=== PATIENT | male | born 1965 | race Caucasian/White ===

== ENCOUNTER 2023-01-21 07:44 | Inpatient (IN) | payer SELFPAY ==
[2023-01-21] VITALS (7 sets, daily range): BP systolic 124–138; BP diastolic 80–95; PULSE 93–110; RESP 18; TEMP 36.4–36.9; O2SAT 94–97; BMI 24.4; BMI 22.3; BMI 22.2
--- NOTE | 2023-01-21 08:08 | CRLHL7_ITS ---
For Patients: As a result of the Century Cures Act, medical imaging exams and procedure reports are released immediately into your electronic medical record. You may view this report before your referring provider. If you have questions, please contact your health care provider. Indication: Left femur pain and swelling. Technique: CT of the left femur with intravenous contrast (89 mL Isovue 370). Comparison: None available. Findings: There is stranding deep to the left tensor fascia emil muscle, surrounding the left vastus lateralis superficial fascia. The left vastus lateralis and intermedius muscles appear enlarged and attenuation is mildly heterogeneous compared to the remaining thigh musculature. There is a hypodense elongated collection at the junction of the vastus lateralis and intermedius muscles measuring approximately 8.0 x 1.0 x 1.0 cm. No additional collection is identified. Remaining muscle attenuation and bulk is normal. There is lateral thigh subcutaneous stranding without discrete subcutaneous fluid collection or soft tissue gas. No acute osseous abnormality. Impression: 1. Left thigh edema surrounding the vastus lateralis muscle with muscle enlargement and heterogeneity involving the vastus lateralis and to a lesser extent the vastus intermedius muscles. While findings are nonspecific, differential considerations include infectious fasciitis/myositis, rhabdomyolysis, posttraumatic muscle edema or inflammatory myopathy. Clinical correlation is requested to determine potential etiologies as well as to evaluate for clinical signs and symptoms of compartment syndrome. 2. Elongated fluid collection at the junction of the vastus lateralis and intermedius muscles may represent edema along the deep muscular fascia versus developing abscess. This collection is currently too small for percutaneous drainage. Findings were discussed with Dr. Masters on 01/21/2023 at 09:18 Please note that all CT scans at this facility use dose modulation, iterative reconstruction, and/or weight-based dosing when appropriate to reduce radiation dose to as low as reasonably achievable. Dictated by Shikha Mcintyre MD @ 01/21/2023 9:24:53 AM (Electronically Signed)
[2023-01-21 08:22] LABS: Lactate* 1.5 mmol/L (0.5-1.9)
[2023-01-21 08:24] LABS: Basophils Percent Auto 0.2 % (0.0-3.0); Hematocrit 41.4 % (37.0-53.0); Hemoglobin* 14.6 gm/dL (13.5-17.5); Immature Granulocytes Pct Auto 0.2 %; Lymphocytes Percent Auto 5.1 % (20-44); Mean Corpuscular HGB Conc 35 gm/dL (32-36); Mean Corpuscular Hemoglobin 29 pg (26-34); Mean Corpuscular Volume 83 fL (80-100); Monocytes Percent Auto 7.6 % (0.0-11.0); Neutrophils Percent Auto 86.9 % (42.0-72.0); Platelet Count* 151 K/uL (140-440); RDW Coefficient of Variation % 11.9 % (11.5-15.5); White Blood Count* 14.31 K/uL (4.50-11.00)
--- NOTE | 2023-01-21 08:29 | ED_ITS ---
HPI - General Adult General Chief complaint: Extremity Pain/Injury, Lower Stated complaint: L leg pain Time Seen by Provider: 01/21/23 07:58 Source: patient Mode of arrival: ambulatory Limitations: no limitations History of Present Illness HPI narrative: 57-year-old male presenting today with left thigh pain. Patient states that it has been hurting for the last 2 days but in the last 24 hours the pain has become unbearable to the point that he cannot walk. He states that the thigh is swollen. He states that on Tuesday he was at work in he grabbed something off of the top shelf when he turned around his leg gave out and he almost hit the ground but did not. He states that in the last several months he has had episodes where his left leg almost gave out on more than 1 occasion. He denies any pain in his hip or his knee. He denies pain in the lower leg, ankle or foot. He states that he had chills yesterday and needed to put on a coat. But he also states that he was outside at that time. He denies any fevers, nausea or vomiting. He denies any night sweats. He denies any weight loss but does state that it is almost impossible for him to gain weight. He states that he has not been to a doctor in about 20 years. He takes no medications and has no known medical diagnoses. He states that he cannot sleep for more than 2 hours at a time but he has been like this as long as he can remember. Related Data Home Medications Medication Instructions Recorded Confirmed No Known Home Medications 01/21/23 01/21/23 Allergies Allergy/AdvReac Type Severity Reaction Status Date / Time No Known Drug Allergies Allergy Verified 01/21/23 08:47 Review of Systems Status of ROS: Reports: 10 or more systems reviewed and unremarkable except as noted in History and below Exam Narrative: Exam Narrative: Well-nourished well-developed patient in no acute distress. Alert and oriented. Answers questions appropriately. Mood and affect are appropriate. Thoughts are goal oriented and rational. No tangential or magical thinking noted. Patient speaks in full sentences without needing to catch his breath. Speech is not slurred or pressure. GCS is 15. HEENT: Normocephalic atraumatic. Pupils are equally round reactive to light. Extraocular muscles are intact. Conjunctivae are moist without any icterus noted. Moist mucous membranes. Patient is edentulous. Posterior pharynx is normal. Neck is soft without any lymphadenopathy or thyromegaly. No masses are appreciated. Cardiovascular: Heart is regular rate and rhythm S1 and S2 are present without any murmurs. Lungs: Clear to auscultation bilaterally no wheezes rhonchi or rales are appreciated. Patient takes deep breaths without any discomfort. Abdomen: Soft and nontender nondistended with normal bowel sounds. No guarding or rebound. No masses or organomegaly appreciated. : Will large inguinal hernia which he does not want to be evaluated today. Extremities: Right lower extremity has normal appearance, of note he has very little hair on the bilateral lower extremities. The left thigh is larger than the right in circumference. He has acute tenderness to palpation of the quadriceps muscles. The quadriceps both medially and laterally are firm and tender, lateral seems to be slightly more tender than medial. Patient cannot lift his leg off the bed secondary to pain. However, if he is sitting at the side of the bed he can extend at the knee and raise the lower leg about chcf up. He has some swelling over the knee and trace edema of the lower leg on that side as well. There are no overlying skin changes. Skin: Well perfused without any obvious rashes. Const: Vital Signs, click to edit/add: Vital Signs - 24 hr 01/21/23 07:56 Temperature 97.6 F Pulse Rate [Right Pulse Oximeter] 110 H Respiratory Rate 18 Blood Pressure [Ri ght Upper Arm] 138/95 H Pulse Oximetry 96 Oxygen Delivery Me thod Room Air Course Course ED Course: Lab work showed elevated white cell count and CRP. Glucose was 530 with an elevated A1c at above 13. CT showed nonspecific swelling and edema of the quadriceps. Area of fluid consistent with either edema or abscess. We added a CK as rhabdomyolysis was in the differential, CK is within normal limits. For his elevated blood sugar patient received a L of normal saline and 10 units of regular insulin. Venous blood gas unremarkable. Hyponatremia-treated with normal saline. I did consult with Orthopedics, Dr. Krause examined the patient and felt like compartment syndrome was not an issue at this time. Given his episode of chills yesterday, elevated white sound count and CRP and a normal CK as well as uncontrolled diabetes, at the top of the differential would be infection. Therefore, patient will be admitted at this time for IV antibiotics. Vital Signs Vital signs: Initial Vital Signs Temperature 97.6 F 01/21/23 07:56 Temperature Source Temporal Artery Scan 01/21/23 07:56 Pulse Rate 110 H 01/21/23 07:56 Respiratory Rate 18 01/21/23 07:56 Blood Pressure 138/95 H 01/21/23 07:56 Blood Pressure Mean 109 H 01/21/23 07:56 Blood Pressure Position Sitting 01/21/23 07:56 Pulse Oximetry 96 01/21/23 07:56 Oxygen Delivery Method Room Air 01/21/23 07:56 Vital Signs Temperature 97.6 F 01/21/23 07:56 Pulse Rate 110 H 01/21/23 07:56 Respiratory Rate 18 01/21/23 07:56 Blood Pressure 138/95 H 01/21/23 07:56 Pulse Oximetry 96 01/21/23 07:56 Oxygen Delivery Method Room Air 01/21/23 07:56 Temperature 97.6 F 01/21/23 07:56 Pulse Rate 110 H 01/21/23 07:56 Respiratory Rate 18 01/21/23 07:56 Blood Pressure 138/95 H 01/21/23 07:56 Pulse Oximetry 96 01/21/23 07:56 Oxygen Delivery Method Room Air 01/21/23 07:56 Medical Decision Making MDM Narrative Medical decision making narrative: 57-year-old male with leg pain, differential diagnoses includes infectious fasciitis or myositis, muscle edema, inflammatory myopathy. Patient will be admitted at this time for further management. New diagnosis of diabetes, hyponatremia. Lab Data Lab results reviewed: Yes I reviewed the patient's lab results Labs: Lab Results 01/21/23 01/21/23 Range/Units 08:15 09:22 WBC 14.31 H (4.50-11.00) K/uL RBC 5.00 (4.30-5.90) m/uL Hgb 14.6 (13.5-17.5) gm/dL Hct 41.4 (37.0-53.0) % MCV 83 (80-100) fL MCH 29 (26-34) pg MCHC 35 (32-36) gm/dL RDW Coeff of [place] 11.9 (11.5-15.5) % Plt Count 151 (140-440) K/uL Neut % (Auto) 86.9 H (42.0-72.0) % Lymph % (Auto) 5.1 L (20-44) % [place] % (Auto) 7.6 (0.0-11.0) % Eos % (Auto) 0.0 (0.0-7.0) % Baso % (Auto) 0.2 (0.0-3.0) % Neut # (Auto) 12.40 H (1.7-7.0) K/uL Lymph # (Auto) 0.70 L (0.90-2.90) K/uL [place] # (Auto) 1.10 H (0.00-0.90) K/UL Eos # (Auto) 0.00 (0.00-0.50) K/uL Baso # (Auto) 0.00 (0.00-0.30) K/uL Abs Immat Gran (auto) 0.00 (0.00-0.30) K/uL Imm/Tot Granulo (auto) 0.2 % ESR 42 H (2-15) mm/hr VBG pH 7.434 H (7.32-7.43) VBG pCO2 42 (40-50) mmHG VBG pO2 39.5 (25-47) mmHG VBG HCO3 28 (21-28) mmol/L Sodium 130 L (135-149) mmol/L Potassium 4.3 (3.6-5.1) mmol/L Chloride 93 L (96-114) mmol/L Carbon Dioxide 26 (20-32) mmol/L Anion Gap 11 (7-15) mEq/L BUN 16 (7-30) mg/dL Creatinine 0.8 (0.5-1.5) mg/dL Estimated Creat Clear 111.82 Estimated GFR 103 ml/min Glucose 530 H* (60-115) mg/dL Hemoglobin A1c 13.15 H (0-5.6) % Lactate 1.5 (0.5-1.9) mmol/L Calcium 8.8 (8.4-10.6) mg/dL Total Bilirubin 1.4 (0.1-1.5) mg/dL Direct Bilirubin 0.0 (0.0-0.5) mg/dL AST 30 (12-35) U/L ALT 23 (4-50) U/L Alkaline Phosphatase 101 (40-150) U/L Total Creatine Kinase 111 (54-186) U/L C-Reactive Protein 20.2 H (0.5-1.0) mg/dL Total Protein 7.0 (6.0-8.3) g/dL Albumin 3.8 (3.3-5.0) g/dL Lab Acknowledgement Test Added Imaging Data CT- Other: Attestation: I have reviewed the pertinent imaging results. Radiologist's impression: CT of the left femur with intravenous contrast (89 mL Isovue 370). Comparison: None available. Findings: There is stranding deep to the left tensor fascia emil muscle, surrounding the left vastus lateralis superficial fascia. The left vastus lateralis and intermedius muscles appear enlarged and attenuation is mildly heterogeneous compared to the remaining thigh musculature. There is a hypodense elongated collection at the junction of the vastus lateralis and intermedius muscles measuring approximately 8.0 x 1.0 x 1.0 cm. No additional collection is identified. Remaining muscle attenuation and bulk is normal. There is lateral thigh subcutaneous stranding without discrete subcutaneous fluid collection or soft tissue gas. No acute osseous abnormality. Impression: 1. Left thigh edema surrounding the vastus lateralis muscle with muscle enlargement and heterogeneity involving the vastus lateralis and to a lesser extent the vastus intermedius muscles. While findings are nonspecific, differential considerations include infectious fasciitis/myositis, rhabdomyolysis, posttraumatic muscle edema or inflammatory myopathy. Clinical correlation is requested to determine potential etiologies as well as to evaluate for clinical signs and symptoms of compartment syndrome. 2. Elongated fluid collection at the junction of the vastus lateralis and intermedius muscles may represent edema along the deep muscular fascia versus developing abscess. This collection is currently too small for percutaneous drainage. Discharge Plan Discharge Clinical Impression: Diabetes, Hyponatremia, Infectious myositis Patient Disposition: Admitted As Observation Condition: Stable Prescriptions: No Action No Known Home Medications Follow Up/Referrals: Provider,Not a Local [Primary Care Provider] -
[2023-01-21 08:40] LABS: Slide Review Reflex No
[2023-01-21 08:42] LABS: Albumin* 3.8 g/dL (3.3-5.0); Chloride* 93 mmol/L (96-114)
[2023-01-21 08:43] LABS: Potassium* 4.3 mmol/L (3.6-5.1); Sodium* 130 mmol/L (135-149)
[2023-01-21 08:45] LABS: Creatinine* 0.8 mg/dL (0.5-1.5); Est. Creatinine Clearance* 111.82; Estimated Glomerular Filt Rate 103 ml/min
[2023-01-21 08:46] LABS: Alanine Aminotransferase* 23 U/L (4-50); Alkaline Phosphatase* 101 U/L (40-150); Anion Gap 11 mEq/L (7-15); Aspartate Amino Transferase* 30 U/L (12-35); Bilirubin Total* 1.4 mg/dL (0.1-1.5); Blood Urea Nitrogen* 16 mg/dL (7-30); Calcium* 8.8 mg/dL (8.4-10.6); Carbon Dioxide* 26 mmol/L (20-32)
[2023-01-21 08:53] LABS: Glucose* 530 mg/dL (60-115)
[2023-01-21] MEDS: 0.9 % SODIUM CHLORIDE 1000 ml 1,000 ML IV (09:10)
[2023-01-21 09:12] LABS: C Reactive Protein* 20.2 mg/dL (0.5-1.0)
[2023-01-21 09:17] LABS: PCO2 VBG 42 mmHG (40-50); PO2 VBG 39.5 mmHG (25-47); pH VBG 7.434 (7.32-7.43)
[2023-01-21 09:18] LABS: HCO3 VBG 28 mmol/L (21-28)
[2023-01-21 09:21] LABS: Erythrocyte SedimentationRate* 42 mm/hr (2-15)
[2023-01-21 09:38] LABS: Hemoglobin A1C* 13.15 % (0-5.6)
[2023-01-21 10:05] LABS: Creatine Kinase* 111 U/L (54-186)
[2023-01-21] MEDS: PIPERACILLIN/TAZOBACTAM 3.375 GM in 0.9 % SODIUM CHLORIDE Mini-bag 100 ML IVPB ×3 (10:58→23:26)
--- NOTE | 2023-01-21 11:29 | PM.IMHP1 ---
Hospitalist- H&P: HPI History of Present Illness Time Seen by Provider: 10:45 Date Seen: 01/22/23 Chief complaint: L leg pain Narrative: Magno Bryant is a 57 year old male who has not seen a doctor in 20 years who present to the ER for left thigh pain and swelling. He denies any injury or fall. On Tuesday his legs felt weak in the gave out, but he did not fall to the ground. Also on that day his left thigh felt stiff. Tuesday he felt okay, but on Tuesday he noticed pain in his left anterior thigh that felt like he had liver exercise did even though he had not done much. The pain kept getting worse and worse. Yesterday he felt chilled around 1:00 p.m., but denies fever. He has not taken any lfdj-nth-uvsuoen medication in 20 years and was trying to hold off, but yesterday the pain got so bad that he did start taking ibuprofen in the early afternoon. He took 2 tablets of igzq-ymo-ztaosyh ibuprofen every 4 hours since then with his last dose at 7:00 a.m. this morning. He notices that it is wearing off and the pain is really starting to kick in. He denies any overlying redness, but did note that his thigh has seemed really swollen since yesterday. His blood sugars were markedly elevated in the emergency department. He had no knowledge of this previous to today because he has never been diagnosed with diabetes. He denies any symptoms such as polydipsia, polyuria, blurry vision, or abdominal pain. He does have numbness and cold feeling in both feet that started about 2 years ago, but thinks this was related to a time when he had frostbite 3 days in a row. He was never seen for that. Review of Systems Status of ROS: Reports: 10 or more systems reviewed and unremarkable except as noted in History and below Const: Reports: chills; Denies: fever, fatigue, malaise or night sweats Eyes: Denies: change in vision or blurry vision ENMT: Denies: mouth pain, dry mouth or vertigo Cardio: Denies: chest pain, palpitations, swelling of feet/ankles or shortness of breath with exertion Resp: Denies: shortness of breath, cough or wheezing GI: Denies: abdominal pain, nausea, vomiting, diarrhea, constipation or change in bowel habits : Reports: change in urine stream (has to sit down to urinate, restart stream [facility] through) and urinary hesitancy; Denies: painful urination or urinary frequency Musculo: Reports: extremity pain (left anterior thigh) and extremity swelling (left anterior thigh); Denies: back pain, joint swelling or muscle weakness Integ/Breast: Reports: sores (chronic sore from picking on left alexis, now healed); Denies: rash, itching, redness, new lesion or changes in skin color Neuro: Denies: headache, dizziness, vertigo or confusion Endo: Denies: fatigue [place]/Lymph: Denies: easy bruising, easy bleeding or enlarged lymph nodes Allergy/Immuno: Denies: wheezing PFSH [facility] Medical History (Updated 01/22/23 @ 07:30 by Alda Lopez MD) Recurrent inguinal hernia of right side without obstruction or gangrene ?K40.91 - Unilateral inguinal hernia, without obstruction or gangrene, recurrent (ICD-10) Surgical History (Updated 01/21/23 @ 11:37 by Alda Lopez MD) H/O right inguinal hernia repair ?Z98.890 - Other specified postprocedural states (ICD-10) ?Z87.19 - Personal history of other diseases of the digestive system (ICD-10) Social History (Updated 01/21/23 @ 11:42 by Alda Lopez MD) Narrative: . Daughter, Lucero, lives in the area, is with him in ER today. Denies tob, lifelong nonsmoker, denies ETOH, denies recreational drug use. 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 What is your current living situation?: I presently have a place to live Problems where you live: no known problems Problems where you live details: none In the past 12 months, utilities in danger of being shut off: yes In past 12 months, lack of transportation kept you from medical appts, meetings, work, or getting things needed for daily living: no In the past 12 mos, have been you worried that your food would run out before you had money to buy more?: never true In the past 12 mos, the food you bought just didn't last and you didn't have money to buy more?: never true Highest level of school completed/degree received: some college, no degree Smoking Status: Never smoker Do you use any of these nicotine containing products: None How often do you have a drink containing alcohol: never AUDIT-C Alcohol total score: 0 Non-prescribed substance use: denies use Caffeine: Yes (5-6 cans Mt. Dew or Coke Daily) How often does anyone, including family, friends and others, physically hurt you: never How often does anyone, including family, friends and others, insult or talk down to you: never How often does anyone, including family, friends and others, threaten you with harm: never How often does anyone, including family, friends and others, scream or curse at you: never service: No Meds Home Medications and Allergies Home Medications Medication Instructions Recorded Confirmed Type No Known Home Medications 01/21/23 01/21/23 History Home Medication Comments: Has not taken any medications, prescriptions or over the counter in over 20 years until 1st dose of OTC ibuprofen yesterday. Allergies Allergy/AdvReac Type Severity Reaction Status Date / Time No Known Drug Allergies Allergy Verified 01/21/23 08:47 Exam Narrative: Exam Narrative: General: Appears older than stated age. Thin. No acute distress. Awake alert oriented x3. Limping, favoring on left leg. HEENT: Normocephalic atraumatic, pupils equally round and reactive to light and accommodation. Oropharynx clear, complete lack of teeth. Mucous membranes are moist. No cervical lymphadenopathy, thyromegaly or carotid bruits. No JVD. Cardiovascular: Regular rate and rhythm. No murmurs, gallops, or rubs. Chest: No increased work of breathing. Clear to auscultation bilaterally. No crackles or wheezes. Abdomen: Bowel sounds present. Soft, nondistended, nontender. No hepatosplenomegaly or masses. Genitourinary: Circumcised male genitalia small to moderate right inguinal hernia into scrotum. No acute. Nontender to palpation. Extremities: No edema, no cyanosis or clubbing. No ulcers. Toenails consistent with onychomycosis. Skin: No jaundice, no pallor, no rashes. Neuro: Grossly intact. No focal deficits. Const: Vital Signs, click to edit/add: Vital Signs - 24 hr 01/21/23 07:56 01/21/23 10:49 Temperature 97.6 F 98.3 F Pulse Rate [Right Pulse Oximeter] 110 H 100 Respiratory Rate 18 18 Blood Pressure [Ri ght Upper Arm] 138/95 H 124/90 H Pulse Oximetry 96 95 Oxygen Delivery Me thod Room Air Room Air Documenting provider has reviewed patient's vital signs: yes Hospitalist - H&P: Result Labs Labs: Short CBC 01/21/23 Range/Units 08:15 WBC 14.31 H (4.50-11.00) K/uL Hgb 14.6 (13.5-17.5) gm/dL Hct 41.4 (37.0-53.0) % Plt Count 151 (140-440) K/uL BMP 01/21/23 08:15 Sodium 130 L Potassium 4.3 Chloride 93 L Carbon Dioxide 26 BUN 16 Creatinine 0.8 Glucose 530 H* Calcium 8.8 Cardiac Enzymes 01/21/23 Range/Units 08:15 Total Creatine Kinase 111 (54-186) U/L Liver Function 01/21/23 Range/Units 08:15 Total Bilirubin 1.4 (0.1-1.5) mg/dL Direct Bilirubin 0.0 (0.0-0.5) mg/dL AST 30 (12-35) U/L ALT 23 (4-50) U/L Alkaline Phosphatase 101 (40-150) U/L Albumin 3.8 (3.3-5.0) g/dL Ordering Physician: Erin Masters M.D. Date of Service: 01/21/23 Procedure(s): CT femur LT w con Accession Number(s): [id number] cc: Erin Masters M.D.; Provider,Not a Local~ For Patients: As a result of the Century Cures Act, medical imaging exams and procedure reports are released immediately into your electronic medical record. You may view this report before your referring provider. If you have questions, please contact your health care provider. Indication: Left femur pain and swelling. Technique: CT of the left femur with intravenous contrast (89 mL Isovue 370). Comparison: None available. Findings: There is stranding deep to the left tensor fascia emil muscle, surrounding the left vastus lateralis superficial fascia. The left vastus lateralis and intermedius muscles appear enlarged and attenuation is mildly heterogeneous compared to the remaining thigh musculature. There is a hypodense elongated collection at the junction of the vastus lateralis and intermedius muscles measuring approximately 8.0 x 1.0 x 1.0 cm. No additional collection is identified. Remaining muscle attenuation and bulk is normal. There is lateral thigh subcutaneous stranding without discrete subcutaneous fluid collection or soft tissue gas. No acute osseous abnormality. Impression: 1. Left thigh edema surrounding the vastus lateralis muscle with muscle enlargement and heterogeneity involving the vastus lateralis and to a lesser extent the vastus intermedius muscles. While findings are nonspecific, differential considerations include infectious fasciitis/myositis, rhabdomyolysis, posttraumatic muscle edema or inflammatory myopathy. Clinical correlation is requested to determine potential etiologies as well as to evaluate for clinical signs and symptoms of compartment syndrome. 2. Elongated fluid collection at the junction of the vastus lateralis and intermedius muscles may represent edema along the deep muscular fascia versus developing abscess. This collection is currently too small for percutaneous drainage. Findings were discussed with Dr. Masters on 01/21/2023 at 09:18 Please note that all [address] scans at this facility use dose modulation, iterative reconstruction, and/or weight-based dosing when appropriate to reduce radiation dose to as low as reasonably achievable. Dictated by Shikha Mcintyre MD @ 01/21/2023 9:24:53 AM (Electronically Signed) Assessment and Plan Assessment and plan (1) Infectious myositis: Problem comment: - probable developing abscess of the left anterior thigh. I spoke with Dr. Amador from Orthopedic surgery who recommended no surgical intervention at this time because of how deep in the tissues the abscess is. He recommended IV antibiotics, reimaging tomorrow, and transfer for IR drainage if symptoms are worsening or if the abscess is enlarging. - I expect this patient will need at least 2 midnights for IV Zosyn and vancomycin to cover Staph and possibly anaerobes in the setting of uncontrolled diabetes. Status: Acute (2) Diabetes mellitus: Problem comment: - New diagnosis, uncontrolled, hemoglobin A1c 13% 01/21/23. He got 10 units of regular insulin IV in the emergency department and blood sugars every come down to the 300s from 500s. I will start him on 70/30 as he does not have insurance and this will hopefully be an easier and cheaper option for him as an outpatient. I spoke with him about establishing care a primary care physician and that he will likely need to see them often at [facility] to get things under control as an outpatient. The patient and his daughter demonstrated understanding. We also spoke about diet since he has been drinking quite a bit of pop lately. I will also have Nutrition see him. I will start him on an insulin sliding scale to help achieve control here, and I will try to adjust the 70/30 so that ultimately he can go home just that regimen without a sliding scale. Likely in the next month he will be able to transition over to oral diabetic medications as things come under control. Status: Acute (3) Hyponatremia: Problem comment: - in the setting of uncontrolled diabetes mellitus. Treat diabetes as above and recheck labs in the morning. Status: Acute (4) Recurrent inguinal hernia of right side without obstruction or gangrene: Problem comment: - Patient had this repaired twice in the past and started having bulging again, at first with coughing. starting around 2019. It has gotten bigger and no longer reduces. Denies pain or overlying skin changes. - not symptomatic or problematic at this time. Will need outpatient surgical referral. Status: Acute Plan Start SCDs and low dose nightly enoxaparin for VTE prophylaxis.
[2023-01-21 12:30] LABS: Appearance Urine Clear (Clear); Bilirubin Urine Negative (Negative); Blood Urine Negative (Negative); Color Urine Yellow (Yellow); Glucose Urine 3+ (Negative); Ketones Urine 3+ (Negative); Leukocyte Esterase Urine Negative (Negative); Nitrite Urine Negative (Negative); Protein Urine Negative (Negative); pH Urine 5.5 (5.0-8.5)
[2023-01-21 12:43] LABS: Amorphous Sediment Urine Few; RBC Urine 0-2 (0-2); WBC Urine 0-2 (0-5)
[2023-01-21] MEDS: IBUPROFEN 400 MG TABLET PO ×2 (13:03→17:46)
--- NOTE | 2023-01-21 14:26 | PM.ORCN ---
History of Present Illness HPI Date Seen: 01/21/23 Consult date: 01/21/23 Requesting physician: Erin Masters Chief complaint: L leg pain Narrative: Magno chapa is a 57-year-old male with no significant past medical history. He presented to the emergency department today with 2 day history of progressively worsening left thigh pain and swelling. The symptoms developed insidious without any history of injury. He is unable to localize thigh pain but feels it may be slightly worse anteriorly and laterally. He states the pain is aggravated by weight-bearing activities and by flexion extension of his knee. He denies any fevers or chills. No numbness or tingling. Review of Systems Const: Denies: fever or chills Cardio: Denies: chest pain or shortness of breath with exertion Resp: Denies: shortness of breath GI: Denies: nausea or vomiting Musculo: Reports: extremity pain and extremity swelling PFSH PFS Medical History (Updated 01/21/23 @ 11:39 by Alda Lopez MD) Recurrent inguinal hernia of right side without obstruction or gangrene ?K40.91 - Unilateral inguinal hernia, without obstruction or gangrene, recurrent (ICD-10) Surgical History (Updated 01/21/23 @ 11:37 by Alda Lopez MD) H/O right inguinal hernia repair ?Z98.890 - Other specified postprocedural states (ICD-10) ?Z87.19 - Personal history of other diseases of the digestive system (ICD-10) Social History (Updated 01/21/23 @ 11:42 by Alda Lopez MD) Narrative: . Daughter, Lucero, lives in the area, is with him in ER today. Denies tob, lifelong nonsmoker, denies ETOH, denies recreational drug use. 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 What is your current living situation?: I presently have a place to live Problems where you live: no known problems Problems where you live details: none In the past 12 months, utilities in danger of being shut off: yes In past 12 months, lack of transportation kept you from medical appts, meetings, work, or getting things needed for daily living: no In the past 12 mos, have been you worried that your food would run out before you had money to buy more?: never true In the past 12 mos, the food you bought just didn't last and you didn't have money to buy more?: never true Highest level of school completed/degree received: some college, no degree Smoking Status: Never smoker Do you use any of these nicotine containing products: None How often do you have a drink containing alcohol: never AUDIT-C Alcohol total score: 0 Non-prescribed substance use: denies use Caffeine: Yes (5-6 cans Mt. Dew or Coke Daily) How often does anyone, including family, friends and others, physically hurt you: never How often does anyone, including family, friends and others, insult or talk down to you: never How often does anyone, including family, friends and others, threaten you with harm: never How often does anyone, including family, friends and others, scream or curse at you: never service: No Meds Home Medications and Allergies Home Medications Medication Instructions Recorded Confirmed Type No Known Home Medications 01/21/23 01/21/23 History Allergies Allergy/AdvReac Type Severity Reaction Status Date / Time No Known Drug Allergies Allergy Verified 01/21/23 08:47 Ortho Exam Narrative Exam Narrative: Musculoskeletal: Left lower extremity was examined. Moderate, diffuse, soft tissue swelling of the left thigh. Left thigh was diffusely tender to palpation, more significantly over the anterior and lateral aspects of the thigh. There was no palpable area of fluctuance. Anterior, medial, posterior compartments were soft and compressible. Overlying skin revealed no warmth or erythema. He was able to actively flex and extend his knee, but active knee range of motion was limited by thigh pain. There was mild diffuse thigh discomfort with passive knee flexion. No significant discomfort with passive knee extension or hip abduction. No pain with range of motion of his toes or ankle. Lower leg compartments are all soft and compressible. Sensation was intact to light touch all dermatomes distally. EHL, tibialis anterior, gastrocnemius/soleus, hamstrings, quadriceps are all intact. Const Vital Signs, click to edit/add: Vital Signs - 24 hr 01/21/23 07:56 01/21/23 10:49 01/21/23 12:24 Temperature 97.6 F 98.3 F 98.2 F Pulse Rate [Right Pulse Oximeter] 110 H 100 Respiratory Rate 18 18 18 Blood Pressure [Right Arm] 134/94 H Blood Pressure [Right Upper Arm] 138/95 H 124/90 H Pulse Oximetry 96 95 97 Oxygen Delivery Method Room Air Room Air Room Air Common normals: no apparent distress, oriented x3, healthy appearing and alert Neuro Common normals: oriented x3 Sensorium/orientation: alert Results Labs Labs: Laboratory Results - last 48 hr 01/21/23 01/21/23 01/21/23 08:15 09:22 12:10 WBC 14.31 H RBC 5.00 Hgb 14.6 Hct 41.4 MCV 83 MCH 29 MCHC 35 RDW Coeff of Laury 11.9 Plt Count 151 Neut % (Auto) 86.9 H Lymph % (Auto) 5.1 L [place] % (Auto) 7.6 Eos % (Auto) 0.0 Baso % (Auto) 0.2 Neut # (Auto) 12.40 H Lymph # (Auto) 0.70 L [place] # (Auto) 1.10 H Eos # (Auto) 0.00 Baso # (Auto) 0.00 Abs Immat Gran (auto) 0.00 Imm/Tot Granulo (auto) 0.2 ESR 42 H VBG pH 7.434 H VBG pCO2 42 VBG pO2 39.5 VBG HCO3 28 Sodium 130 L Potassium 4.3 Chloride 93 L Carbon Dioxide 26 Anion Gap 11 BUN 16 Creatinine 0.8 Estimated Creat Clear 111.82 Estimated GFR 103 Glucose 530 H* Hemoglobin A1c 13.15 H Lactate 1.5 Calcium 8.8 Total Bilirubin 1.4 Direct Bilirubin 0.0 AST 30 ALT 23 Alkaline Phosphatase 101 Total Creatine Kinase 111 C-Reactive Protein 20.2 H Total Protein 7.0 Albumin 3.8 Urine Color Yellow Urine Appearance Clear Urine pH 5.5 Ur Specific [place] 1.010 Urine Protein Negative Urine Glucose (UA) 3+ A Urine Ketones 3+ A Urine Blood Negative Urine Nitrite Negative Urine Bilirubin Negative Urine Urobilinogen 1.0 Ur Leukocyte Esterase Negative Urine RBC 0-2 Urine WBC 0-2 Ur Squamous Epith Cells None Amorphous Sediment Few A Urine Bacteria None Lab Acknowledgement Test Added Diagnostic results Additional Comments: CT scan of left femur performed today was reviewed. Impression: 1. Left thigh edema surrounding the vastus lateralis muscle with muscle enlargement and heterogeneity involving the vastus lateralis and to a lesser extent the vastus intermedius muscles. While findings are nonspecific, differential considerations include infectious fasciitis/myositis, rhabdomyolysis, posttraumatic muscle edema or inflammatory myopathy. Clinical correlation is requested to determine potential etiologies as well as to evaluate for clinical signs and symptoms of compartment syndrome. 2. Elongated fluid collection at the junction of the vastus lateralis and intermedius muscles may represent edema along the deep muscular fascia versus developing abscess. This collection is currently too small for percutaneous drainage. Assessment and Plan Assessment and plan (1) Infectious myositis: Status: Acute Total time spent: Total time spent is greater than 50% in coordination of care (as documented) at patient's floor/unit and/or counseling patient: (2) Diabetes mellitus: Status: Acute Total time spent: Total time spent is greater than 50% in coordination of care (as documented) at patient's floor/unit and/or counseling patient: (3) Recurrent inguinal hernia of right side without obstruction or gangrene: Problem comment: Patient had this repaired twice in the past and started having bulging again, at first with coughing. starting around 2019. It has gotten bigger and no longer reduces. Denies pain or overlying skin changes. Status: Acute Total time spent: Total time spent is greater than 50% in coordination of care (as documented) at patient's floor/unit and/or counseling patient: (4) Hyponatremia: Status: Acute Total time spent: Total time spent is greater than 50% in coordination of care (as documented) at patient's floor/unit and/or counseling patient: Plan Clinical exam is not consistent with compartment syndrome. Patient has only mild discomfort with passive flexion extension of his knee and thigh compartments are all soft and compressible. However, there is a small, deep, intramuscular fluid collection in the anterior compartment of the left thigh which measures 8 cm x 1 cm x 1 cm. Given elevation of white blood cell count, CRP, ESR, and blood glucose, this likely represents an infectious process with a small, deep intramuscular abscess in the anterior compartment of the thigh. Per our radiology department, this is not amenable to percutaneous drainage. Furthermore, there is no obvious area of fluctuance or palpable fluid collection which can be easily localized. Therefore, our recommendation is for broad-spectrum IV antibiotics and transfer to a facility with Interventional Radiology for percutaneous drainage. If patient is admitted to our facility, repeat imaging would be recommended in 24 hours if symptoms are not improving with IV antibiotics.
[2023-01-21] MEDS: SODIUM CHLORIDE 0.9 % (FLUSH) 10 ML SYRINGE 5 ML IVF ×2 (15:34→21:11)
--- NOTE | 2023-01-21 16:14 | PC.SOCIAL ---
Advanced Directive Request: Met with patient in his room. Explained directive and offered long and short form of [facility] Directives. Patient will talk with daughter when she returns and have her help to fill it out. Social work to follow up as needed.
[2023-01-21] MEDS: 0.9 % SODIUM CHLORIDE 250 ml IV (17:41)
--- NOTE | 2023-01-21 19:41 | PC.NURSE ---
Shift Note: Pt friendly and cooperative, able to verbalize needs. C/o 4/10 painful tightness in left upper thigh and verbalized Ibuprofen has been effective for pain management. BG greater than 300 prior to lunch and dinner, sliding scale Novolog given with meals. Began diabetic teaching with pt and his daughter Lucero. Consult to Research Study Assistant for diabetic education also requested, they were able to meet with the pt prior to the end of the day. BM this afternoon, pt states it was normal for him.
[2023-01-21] MEDS: ENOXAPARIN 40 MG/0.4 ML INJ SUBCUT (21:08)
[2023-01-21] MEDS: INSULIN PROT/ASP (NOVOLOG 70/30) 100 UNIT/ML 10 UNIT SUBCUT (21:10)
[2023-01-21] MEDS: ACETAMINOPHEN 325 MG TABLET PO (23:26)
[2023-01-22 02:53] VITALS: BP 115/73; PULSE 86; RESP 16; TEMP 36.6; O2SAT 95
[2023-01-22] MEDS: PIPERACILLIN/TAZOBACTAM 3.375 GM in 0.9 % SODIUM CHLORIDE Mini-bag 100 ML IVPB ×2 (05:14→10:51)
[2023-01-22 07:00] VITALS: BP 101/68; PULSE 97; RESP 14; TEMP 37.3; O2SAT 96
[2023-01-22] MEDS: IBUPROFEN 400 MG TABLET PO ×2 (07:58→12:57)
[2023-01-22 08:16] LABS: Basophils Percent Auto 0.4 % (0.0-3.0); Eosinophils Percent Auto 0.1 % (0.0-7.0); Hemoglobin* 14.7 gm/dL (13.5-17.5); Immature Granulocytes Pct Auto 0.5 %; Lymphocytes Percent Auto 4.7 % (20-44); Mean Corpuscular HGB Conc 35 gm/dL (32-36); Mean Corpuscular Hemoglobin 30 pg (26-34); Mean Corpuscular Volume 84 fL (80-100); Monocytes Percent Auto 6.9 % (0.0-11.0); Neutrophils Percent Auto 87.4 % (42.0-72.0); Platelet Count* 152 K/uL (140-440); RDW Coefficient of Variation % 12.2 % (11.5-15.5); Red Blood Count 4.99 m/uL (4.30-5.90); Slide Review Reflex No; White Blood Count* 11.08 K/uL (4.50-11.00)
[2023-01-22 08:37] LABS: Chloride* 99 mmol/L (96-114); Potassium* 4.1 mmol/L (3.6-5.1); Sodium* 134 mmol/L (135-149)
[2023-01-22 08:40] LABS: Creatinine* 0.7 mg/dL (0.5-1.5); Est. Creatinine Clearance* 126.33; Estimated Glomerular Filt Rate 107 ml/min
[2023-01-22 08:41] LABS: Anion Gap 9 mEq/L (7-15); Blood Urea Nitrogen* 17 mg/dL (7-30); Calcium* 8.6 mg/dL (8.4-10.6); Carbon Dioxide* 26 mmol/L (20-32); Glucose* 293 mg/dL (60-115)
[2023-01-22] MEDS: INSULIN PROT/ASP (NOVOLOG 70/30) 100 UNIT/ML 10 UNIT SUBCUT (08:56)
[2023-01-22] MEDS: SODIUM CHLORIDE 0.9 % (FLUSH) 10 ML SYRINGE 5 ML IVF ×2 (08:56→15:11)
[2023-01-22 09:20] LABS: C Reactive Protein* 34.9 mg/dL (0.5-1.0)
[2023-01-22 11:00] VITALS: BP 117/78; PULSE 91; RESP 16; TEMP 37.9; O2SAT 95
--- NOTE | 2023-01-22 11:00 | CRLHL7_ITS ---
For Patients: As a result of the Century Cures Act, medical imaging exams and procedure reports are released immediately into your electronic medical record. You may view this report before your referring provider. If you have questions, please contact your health care provider. INDICATION: Clinical concern for abscess. Persistent left femur pain and swelling. TECHNIQUE: 80 mL Isovue-370 IV contrast. COMPARISON: 21 January 2023. FINDINGS: Edema around the vastus lateralis and vastus intermedius with edematous somewhat expanded muscles. Poorly defined low-attenuation peripherally enhancing infiltrating appearing probable intramuscular abscess in the vastus intermedius mid femur to just above the condyles. Greatest axial diameter estimated at 2.3 x 1.7 cm. Estimated craniocaudal length 10 cm (image 35 series 6). Equivocal extension into the deep dorsal margin of the vastus lateralis (image 119 series 3). Small effusion of the knee. Soft tissue edema ventral and lateral distal thigh across the knee into the upper calf. IMPRESSION: Significant progression of intramuscular abscess in the vastus intermedius with equivocal extension to the deep dorsal margin mid vastus lateralis. Reactive edema or myositis in the vastus lateralis. Increased small effusion of the knee is nonspecific. It may be reactive but infectious extension not excluded. Emergent orthopedic referral recommended for consideration for surgical debridement. Results and recommendations discussed with and acknowledged by ordering clinician Dr. Alda Lopez at 12:30 01/22/2023. Please note that all CT scans at this facility use dose modulation, iterative reconstruction, and/or weight-based dosing when appropriate to reduce radiation dose to as low as reasonably achievable. Dictated by Hitesh Rajput MD @ 01/22/2023 12:28:17 PM (Electronically Signed)
[2023-01-22 15:00] VITALS: BP 114/74; PULSE 91; PULSE 96; PULSE 98; RESP 16; TEMP 37.6; O2SAT 94
--- NOTE | 2023-01-22 15:53 | PC.NURSE ---
VSS, RA. Left thigh pain/right inguinal hernia pain of 4, some relief w/ ibuprofen. Encouraged ice. Left thigh swelling. Tolerating carb-controlled diet, 3 units SS insulin w/ breakfast, 5 units w/ lunch. Asking relevant questions about diet going forward. Voiding x2, BM x1. CT of thigh @ 11am- abscess getting bigger. PIV in right hand, left AC, SL?d- intermittent abx. Stand by assist, having to lean on things d/t pain of thigh and hernia. Transferred to [facility] @ 1545 via [facility]. Daughter had all belongings. Iva Stevenson RN
--- NOTE | 2023-01-22 16:11 | PM.DST ---
Transfer Discharge Sum: Prov Provider Time Seen by Provider: 10:32 Date Seen: 01/22/23 Date of admission: 01/21/23 12:09 Primary care physician: Not a Local Provider Consults: 01/21/23 12:08 Consult to Supervisor [employer] [CONS] Routine Comment: Reason for Consult:: Social Service Consult 01/21/23 12:17 Consult to Nutrition [CONS] Routine Comment: Reason for consult:: Diabetic Teaching Comment: new diagnosis 01/21/23 12:44 Consult to Supervisor [employer] [CONS] Routine Comment: Reason for Consult:: PT Requests Adv Dir Info 01/21/23 15:18 Consult to Occupational Therapy [CONS] Routine Comment: Reason(s) for OT Consult:: ADLs Prior to Discharge Any Restrictions?:: No Restrictions Anticipated date of transfer: 01/22/23 Receiving physician/facility: [facility] (in [place]), ER, Dr. Vernon DS: Diagnosis Discharge Diagnosis (1) Infectious myositis: Status: Acute Problem details: - Worsening abscess of the left anterior thigh per imaging (I spoke with radiologist, Dr. Rajput). Continue IV Zosyn and vancomycin. I spoke with our ortho and general surgeon who feel they can not do the washout here. Gloria ortho PA, called and spoke with Dr. Mitchell at [facility]. The patient was accepted by Dr. Vernon at [facility] in transfer. (2) Diabetes mellitus: Status: Acute Problem details: - New diagnosis, uncontrolled, hemoglobin A1c 13% 01/21/23. He got 10 units of regular insulin IV in the emergency department and blood sugars every come down to the 300s from 500s. I will start him on 70/30 as he does not have insurance and this will hopefully be an easier and cheaper option for him as an outpatient. I spoke with him about establishing care a primary care physician and that he will likely need to see them often at [facility] to get things under control as an outpatient. The patient and his daughter demonstrated understanding. We also spoke about diet since he has been drinking quite a bit of pop lately. I will also have Nutrition see him. I will start him on an insulin sliding scale to help achieve control here, and I will try to adjust the 70/30 so that ultimately he can go home just that regimen without a sliding scale. Likely in the next month he will be able to transition over to oral diabetic medications as things come under control. (3) Hyponatremia: Status: Acute Problem details: - Improving. Suspect this was secondary to hyperglycemia. (4) Recurrent inguinal hernia of right side without obstruction or gangrene: Status: Chronic Problem details: - Patient had this repaired twice in the past and started having bulging again, at first with coughing. starting around 2019. It has gotten bigger and no longer reduces. Denies pain or overlying skin changes. - not symptomatic or problematic at this time. Will need outpatient surgical referral. Transfer Discharge Sum: Med Medications Active and Home Medications: Home Medications No Known Home Medications 01/21/23 [History Confirmed 01/21/23] Active Medications Acetaminophen (Acetaminophen 325 Mg Tablet) 650 - 975 mg PO Q6H PRN Last Admin: 01/21/23 23:26 Dose: 975 mg Enoxaparin Sodium (Enoxaparin 40 Mg/0.4 Ml Inj) 40 mg SUBCUT HS LOVE Last Admin: 01/21/23 21:08 Dose: 40 mg Piperacillin Sod/Tazobactam (Sod 3.375 gm/ Sodium Chloride) 100 mls @ 200 mls/hr IVPB Q6H LOVE Last Infusion: 01/22/23 12:02 Dose: Infused Vancomycin HCl 1,000 mg/ (Sodium Chloride) 260 mls @ 260 mls/hr IVPB Q12H LOVE; Protocol Last Admin: 01/22/23 15:10 Dose: 260 mls/hr Ibuprofen (Ibuprofen 400 Mg Tablet) 400 - 800 mg PO TIDWM LOVE Last Admin: 01/22/23 12:57 Dose: 800 mg Insulin Aspart (Insulin Aspart 100 Unit/Ml (Novolog)) 0 unit SUBCUT ACHS LOVE; Protocol Last Admin: 01/22/23 12:58 Dose: 5 unit Insulin Aspart (Insulin Prot/Asp (Novolog 70/30) 100 Unit/Ml) 15 unit SUBCUT BIDWM LOVE Sodium Chloride (Sodium Chloride 0.9 % (Flush) 10 Ml Syringe) 5 ml IVF .FLUSH PRN Last Admin: 01/21/23 15:34 Dose: 5 ml Sodium Chloride (Sodium Chloride 0.9 % (Flush) 10 Ml Syringe) 5 ml IVF BID LOVE Last Admin: 01/22/23 15:11 Dose: 5 ml Sodium Chloride (0.9 % Sodium Chloride 250 Ml) 250 ml IV Q24H LOVE Last Admin: 01/21/23 17:41 Dose: 250 ml Transfer Discharge Sum: Hosp Hospital Course Hospital course: Magno Bryant is a 57 year old male with no known medical problems who started having left thigh tightness and stiffness on Tuesday that then developed into swelling and pain for which he presented to the emergency department on Tuesday. He was also found to have new diagnosis of diabetes mellitus with a hemoglobin A1c of 13%. He was admitted to the hospital after a CT femur for pyogenic myositis of the left anterior lateral thigh. He was given insulin with some improvement of hyperglycemia and was started on vancomycin and Zosyn. Repeat CT femur today showed more pronounced ill-defined branching fluid collection of the vastus intermedius muscles. For this reason he is transferred for orthopedic surgery washout. Time Spent with Patient Time attestation: Total time spent providing and/or coordinating transfer services: Exam Narrative: Exam Narrative: General: No acute distress. Awake, alert, oriented. No pallor. No jaundice. Oropharynx: Clear. Mucous membranes moist. Cardiovascular: Regular rate and rhythm. No murmurs, gallops, or rubs. Respiratory: Clear to auscultation bilaterally. No wheezes or crackles. Abdomen: Bowel sounds present. Soft, nondistended, nontender. Extremities: Left thigh is edematous and tender anterior laterally. There is no overlying skin change, erythema, or warmth. Const: Vital Signs, click to edit/add: Vital Signs - 24 hr 01/21/23 19:00 01/21/23 23:00 01/21/23 23:00 Temperature 98.1 F 98.2 F Pulse Rate [Apical ] 110 H 98 98 Pulse Rate [Pulse Oximeter] Respiratory Rate 18 18 18 Blood Pressure [Ri ght Arm] 136/86 130/80 Pulse Oximetry 95 94 Oxygen Delivery Me thod Room Air Room Air 01/22/23 02:53 01/22/23 07:00 01/22/23 07:00 Temperature 97.8 F 99.1 F Pulse Rate [Apical ] Pulse Rate [Pulse Oximeter] 86 97 97 Respiratory Rate 16 14 14 Blood Pressure [Ri ght Arm] 115/73 101/68 Pulse Oximetry 95 96 Oxygen Delivery Me thod Room Air Room Air 01/22/23 11:00 01/22/23 15:00 01/22/23 15:00 Temperature 100.3 F H 99.6 F Pulse Rate [Apical ] 98 Pulse Rate [Pulse Oximeter] 91 91 96 Respiratory Rate 16 16 16 Blood Pressure [Ri ght Arm] 117/78 114/74 Pulse Oximetry 95 94 Oxygen Delivery Me thod Room Air Transfer Discharge Sum: Data Data Completed and Pending Completed studies during hospitalization: Ordering Physician: Erin Masters M.D. Date of Service: 01/21/23 Procedure(s): CT femur LT w con Accession Number(s): [id number] cc: Erin Masters M.D.; Provider,Not a Local~ For Patients: As a result of the Cures Act, medical imaging exams and procedure reports are released immediately into your electronic medical record. You may view this report before your referring provider. If you have questions, please contact your health care provider. Indication: Left femur pain and swelling. Technique: CT of the left femur with intravenous contrast (89 mL Isovue 370). Comparison: None available. Findings: There is stranding deep to the left tensor fascia emil muscle, surrounding the left vastus lateralis superficial fascia. The left vastus lateralis and intermedius muscles appear enlarged and attenuation is mildly heterogeneous compared to the remaining thigh musculature. There is a hypodense elongated collection at the junction of the vastus lateralis and intermedius muscles measuring approximately 8.0 x 1.0 x 1.0 cm. No additional collection is identified. Remaining muscle attenuation and bulk is normal. There is lateral thigh subcutaneous stranding without discrete subcutaneous fluid collection or soft tissue gas. No acute osseous abnormality. Impression: 1. Left thigh edema surrounding the vastus lateralis muscle with muscle enlargement and heterogeneity involving the vastus lateralis and to a lesser extent the vastus intermedius muscles. While findings are nonspecific, differential considerations include infectious fasciitis/myositis, rhabdomyolysis, posttraumatic muscle edema or inflammatory myopathy. Clinical correlation is requested to determine potential etiologies as well as to evaluate for clinical signs and symptoms of compartment syndrome. 2. Elongated fluid collection at the junction of the vastus lateralis and intermedius muscles may represent edema along the deep muscular fascia versus developing abscess. This collection is currently too small for percutaneous drainage. Findings were discussed with Dr. Masters on 01/21/2023 at 09:18 Please note that all CT scans at this facility use dose modulation, iterative reconstruction, and/or weight-based dosing when appropriate to reduce radiation dose to as low as reasonably achievable. Dictated by Shikha Mcintyre MD @ 01/21/2023 9:24:53 AM (Electronically Signed) Ordering Physician: Alda Lopez M.D. Date of Service: 01/22/23 Procedure(s): CT femur LT w con Accession Number(s): [id number] cc: Alda Lopez M.D.; Provider,Not a Local~ For Patients: As a result of the Century Cures Act, medical imaging exams and procedure reports are released immediately into your electronic medical record. You may view this report before your referring provider. If you have questions, please contact your health care provider. INDICATION: Clinical concern for abscess. Persistent left femur pain and swelling. TECHNIQUE: 80 mL Isovue-370 IV contrast. COMPARISON: 21 January 2023. FINDINGS: Edema around the vastus lateralis and vastus intermedius with edematous somewhat expanded muscles. Poorly defined low-attenuation peripherally enhancing infiltrating appearing probable intramuscular abscess in the vastus intermedius mid femur to just above the condyles. Greatest axial diameter estimated at 2.3 x 1.7 cm. Estimated craniocaudal length 10 cm (image 35 series 6). Equivocal extension into the deep dorsal margin of the vastus lateralis (image 119 series 3). Small effusion of the knee. Soft tissue edema ventral and lateral distal thigh across the knee into the upper calf. IMPRESSION: Significant progression of intramuscular abscess in the vastus intermedius with equivocal extension to the deep dorsal margin mid vastus lateralis. Reactive edema or myositis in the vastus lateralis. Increased small effusion of the knee is nonspecific. It may be reactive but infectious extension not excluded. Emergent orthopedic referral recommended for consideration for surgical debridement. Results and recommendations discussed with and acknowledged by ordering clinician Dr. Alda Lopez at 12:30 01/22/2023. Please note that all CT scans at this facility use dose modulation, iterative reconstruction, and/or weight-based dosing when appropriate to reduce radiation dose to as low as reasonably achievable. Dictated by Hitesh Rajput MD @ 01/22/2023 12:28:17 PM (Electronically Signed) Discharge Plan Discharge Disposition: [facility] Date of Admission: 01/21/23 12:09 Attending Physician on Admission: Alda Lopez Attending Provider on Discharge: Alda Lopez Primary Care Provider: Provider,Not a Local Condition: Stable Discharge Medications: No Action No Known Home Medications Follow Up Appointments: Provider,Not a Local [Primary Care Provider] - Oxygen: No Urinary Catheter: No Services not available here: Trauma orthopedic surgery for washout of thigh
--- NOTE | 2023-01-22 16:35 | PC.NURSE ---
Patient Fall-- Pt was SBA and pt had been using his call light appropriately prior to incident. He was educated to call for help with ambulation and was alert and oriented. Pt was up in chair eating and chair alarm was not utilized. Pt notified of impending transfer to another hospital by and attempted to pack up his belongings independently. While ambulating in room, pt stated that his knee gave out. This nurse heard a thud from room next door and ran to investigate. Pt was on his knees near the foot of the bed and RISA De La Rosa was present. Pt denied hitting head. Estrella stated that her patient's daughter witnessed the fall. Pt's daughter stated that patient was coming around the corner and his knees gave out. He tried to catch himself but fell and hit his back on the foot of the bed. Pt was able to get up independently. Small abrasion/ bruising noted to left flank and shortly thereafter to left knee. Left thigh was already edematous r/t pt's abcess. ana Payne Ashley, charge nurse and Dr. Selby, hospitalist were notified. Shortly after fall, pt was transferred to [facility] via EMS. Fall was mentioned during nurse to nurse report. Pt was able to ambulate to cart with SBA.
--- NOTE | 2023-01-23 08:25 | PC.NURSE ---
Late entry for 01/22/23: Patient alert, oriented and pleasant. Stand by assist with transfers and ambulation. BS 379 at HS. Left upper thigh has some swelling and is light pink in color. Patient reports pain rated 3-4/10 in left upper thigh with movement. PRN Tylenol effective. VSS.?
== END 2023-01-22 15:45 | disposition short-term general hospital (02) | DRG 558 ==
LOC: ED 10:39 → MEDSURG 12:07
PROVIDERS: Admitting Provider Family Medicine; Emergency Provider Family Medicine; Visit Provider Family Medicine
DX: M60.004 Infective myositis, unspecified left leg (principal); E87.1 Hypo-osmolality and hyponatremia; E11.65 Type 2 diabetes mellitus with hyperglycemia; K40.91 Unilateral inguinal hernia, without obstruction or gangrene, recurrent
CPT/HCPCS: 36415; 73701; 80048; 80076; 81001; 82550; 82803; 82947; 82962; 83036; 83605; 85025; 85651; 86140; 87040; 97165; 97535; 99284; 99285; A9270; J1650; J2543; J3370; J7030; J7050; J7120; Q9967

== ENCOUNTER 2023-01-22 15:41 | Outpatient (CLI) | payer SELFPAY | END 2023-01-22 15:42 | disposition home or self-care (01) | LOC: AMB 02-17 07:53 | PROVIDERS: Visit Provider Emergency Medicine | DX: M60.052 Infective myositis, left thigh (principal) | CPT/HCPCS: A0425; A0434 ==

== ENCOUNTER 2023-06-27 07:47 | Day surgery (SDC) | payer BC, SELFPAY ==
[2023-06-27] VITALS (12 sets, daily range): BP systolic 106–127; BP diastolic 48–89; PULSE 59–62; RESP 12–16; TEMP 36.1–36.6; O2SAT 96–99; BMI 25.2
[2023-06-27] MEDS: SODIUM CHLORIDE 0.9 % (FLUSH) 10 ML SYRINGE IVF (08:25)
[2023-06-27] MEDS: LACTATED RINGERS 1000 ML 1,000 ML 100 ML IV (08:25)
[2023-06-27] MEDS: CLINDAMYCIN 900 MG/50 ML-D5W IVPB (09:21)
[2023-06-27] MEDS: BUPIVACAINE 0.25% 30 ML INJECTION (09:44)
[2023-06-27] MEDS: 5 % DEXTROSE 1000 ML 1,000 ML 50 ML IV (10:41)
--- NOTE | 2023-06-27 10:41 | SUR.OPER ---
Glucose checked at end of procedure, Blood sugar is 80.
[2023-06-27] MEDS: LACTATED RINGERS 1000 ML 1,000 ML 30 ML IV (10:42)
--- NOTE | 2023-06-27 10:43 | P.GSOP_ITS ---
Operative Note Date of procedure: 06/27/23 Pre-op diagnosis: Possibly recurrent right inguinal hernia Post-op diagnosis: Right inguinal hernia, initial Type of Procedure: Laparoscopic repair right inguinal hernia Indications: The patient is a 57-year-old male with a symptomatic and large right inguinal hernia. He states that he previously had a repair on the right side 15 years ago. He states that he also had a repair as a child on this side. This is causing significant discomfort for him and is limiting his activity. After discussion, he elected to proceed with repair. Procedure Description: After discussing the risks and benefits of the procedure, the patient signed informed consent.? The operative site was marked and the patient was brought to the operating room and placed on the operating table in supine position.? Care was taken to pad the patient's pressure points.?? The patient was then intubated by anesthesia.?? The operative site was then prepped and draped in the usual sterile fashion.? A time-out was then performed. It should be noted that once the patient was shaved and prepped, there were no laparoscopic incisions and no right groin incision, though he did have an incision on the left. A curvilinear incision was made below the umbilicus. Dissection was carried down to subcutaneous tissue until the anterior rectus fascia was encountered. This was incised off the midline on the right. The rectus muscle fibers were then retracted exposing the posterior fascia. A port with a dissecting balloon was then introduced into the pre-preperitoneal space. This was inflated under direct vision. The balloon was deflated, removed, and a 10 mm working port was placed. The space was insufflated and a 10 mm 30-degree scope was then advanced into the space. Two 5 mm ports were placed in the midline under direct vision. Dissection began on the right side. Zhen's ligament and the pubic bone were exposed medially. Following this, dissection was carried out laterally. An indirect defect was noted. The sac was dissected free from the cord structures using a combination of sharp and blunt dissection. The sac was noted to be quite large. It was torn during the dissection. Clips were placed to close the defect. I continued to dissect the sac off of the cord structures. It extended down to the testicle. I continued to dissect this until it was completely reduced. The sac was quite thin and did tear. I explored the external ring for a cord lip troy. There was not one present. Once it was completely reduced, a piece of Bard 3DMax mesh for the appropriate side was placed into the abdomen. This was positioned with the marker pointed medially. A Tacker was used to attach the mesh medially at Zhen's ligament and 1 tack laterally with care to avoid the epigastric vessels and stay above the inguinal ligament. I then identified the peritoneal defect, used a soft catheter to decompress the pneumoperitoneum that had accumulated. I then clipped the peritoneal defect using 5 mm LigaSure clips. Once this was completed the sac was placed on top of the mesh and the preperitoneal space desufflated under direct vision to ensure the mesh laid flat. 10 mL of 0.5% Marcaine were instilled into the preperitoneal space through a port. The ports were removed. The fascia from the infraumbilical port was closed with 0 Vicryl. The skin incisions were closed with absorbable subcuticular suture. Sterile dressings were then applied. The scrotum was examined to ensure that both testicles were down. Instrument sponge and needle counts were correct at the end of the case. ? The patient was then woken and transported to the recovery area in stable condition. ? The patient tolerated the procedure well. Findings: Large indirect right inguinal hernia, initial, not recurrent Implants: Bard 3DMax mesh Anesthesia: GETA Surgeon: Gloria Galo MD Estimated blood loss (mL): 10 Condition: stable Disposition: PACU
--- NOTE | 2023-06-27 10:49 | W.ANESCHARGE ---
Anesthesia Charges Start Date/Time Anesthesia Start Date: 06/27/23 Anesthesia Start Time: 09:09 Stop Date/Time Anesthesia Stop Date: 06/27/23 Anesthesia Stop Time: 10:45
--- NOTE | 2023-06-27 11:12 | SUR.PHASEI ---
patient meets pacu d/c criteria
== END 2023-06-27 12:18 | disposition home or self-care (01) ==
PROVIDERS: PCP Family Medicine; Visit Provider Surgery
PROC: (CPT 49650; principal; 2023-06-27 09:00)
DX: K40.90 Unilateral inguinal hernia, without obstruction or gangrene, not specified as recurrent (principal); E11.9 Type 2 diabetes mellitus without complications
CPT/HCPCS: 49650; 00830; 82962; C1781; J0665; J0736; J1100; J1885; J2250; J2371; J2405; J2704; J2710; J3010; J7070; J7120

== ENCOUNTER 2024-04-17 09:45 | Outpatient (RCR) | payer BC, SELFPAY | END 2024-06-07 11:29 | disposition home or self-care (01) | PROVIDERS: PCP Family Medicine; Visit Provider Family Medicine | DX: R29.898 Other symptoms and signs involving the musculoskeletal system (principal); R26.81 Unsteadiness on feet; M62.81 Muscle weakness (generalized); Z51.89 Encounter for other specified aftercare | CPT/HCPCS: 97110; 97112; 97161 ==

== ENCOUNTER 2025-01-19 02:41 | Outpatient (CLI) | payer BC, SELFPAY | END 2025-01-19 02:42 | disposition home or self-care (01) | LOC: AMB 01-21 11:40 | PROVIDERS: PCP Family Medicine; Visit Provider Family Medicine | DX: H53.8 Other visual disturbances (principal) | CPT/HCPCS: A0425; A0429 ==

== ENCOUNTER 2025-01-19 03:07 | Inpatient (IN) | payer BC, SELFPAY ==
--- OUTSIDE RECORDS SUMMARY | 2024-12-24 11:00 | XMS_ITS | Encounter Summary ---
Author Organization [facility] Address [address] [place] [address] Care Team Providers Care Parachute/Combatant Diver Officer Name Role Phone All Klein MD Primary Care Provider [phone] Robert Soria MD Unavailable [phone] Reason for Referral * Consultation - Internal (Routine) - Open Specialty Diagnoses / Procedures Referred By Soila t Referred To Contact Rheumatology Diagnoses Lumbosacral plexopathy Robert Soria MD [address] [place] [address] [place] [phone] Phone: tel: fax: Referral ID Status Reason Start Date Expiration Date V isits Requested Visits Authorized [id number] Open Specialty Services Required 12/24/2024 1 1 Reason for Visit * Reason Comments Follow up Encounter Details Date Type Department Care Team (Late st Contact Info) Description 12/24/2024 11:00 AM CDT Office Visit [facility] [address] [place] [phone] Robert Soria MD [address] [place] [address] [place] [id number] Lumbosacral plexopathy (Primary Dx) Social History Tobacco Use Types Packs/Day Years Used Date Smoking Tobacco: Never Smokeless Tobacco: Never Sex and Gender Information Value Date Recorded Sex Assigned at Not on file Legal Sex Male 8:36 AM CDT Gender Identity Not on file Sexual Orientation Not on file documented as of this encounter Patient Instructions * Patient Instructions* Robert Soria MD - 12/24/2024 11:00 AM CDT 1. Labs today. 2. See wire drawing die maker when possible. 3. See Dr. Soria after the above have been completed. documented in this encounter Progress Notes * Robert Soria MD - 12/24/2024 11:00 AM CDT History of Present Illness Clemente Bryant is a 59 year old male presents to follow-up for left leg pain and weakness. He is accompanied by his daughter. He has experienced left leg pain and weakness since January 21, 2023, when his leg collapsed at work. Despite two surgeries for an abscess, the weakness and collapsing persist. An MRI of the lumbosacral spine shows mild disc bulges without severe neural foraminal impingement. An MRI of the lumbosacral plexus shows no active plexitis. An EMG of the bilateral lower extremities reveals severe generalized sensory motor polyneuropathy and findings involving the lumbosacral region. Lab investigationsshow positive myeloperoxidase antibodies and vitamin D deficiency. Blood sugar is now well controlled. Results LABS Paraneoplastic panel: Negative Myomarker 3 panel: Negative ARABELLA: Negative Aldolase: Normal CRP: Normal CK: Normal BELINDA antibodies: Normal Ganglioside antibodies: Normal SSA: Normal SSB: Normal ESR: Normal Myeloperoxidase antibodies: Positive at 21 Vitamin B12: Normal Vitamin D: Deficiency MAG antibodies: Negative SGPG antibodies: Negative MARGIE levels: Negative RADIOLOGY Lumbosacral spine MRI: Mild disc bulges with no severe neural foraminal impingement Lumbosacral plexus MRI: No active plexitis DIAGNOSTIC EMG bilateral lower extremities: Generalized sensory motor polyneuropathy, very severe, and lumbosacral plexopathy Physical Exam Neurological Examination Summary General/Mental status: Alert, oriented, fluent speech, intact comprehension. Cranial nerves: Intact, no focal deficits. Motor: Normal bulk/tone. Full strength in upper extremities. Weakness in left > right proximal lower extremity (quadriceps, iliopsoas). Distal weakness in ankles/toes (dorsiflexion, plantarflexionreduced, L>R). Unable to raise left leg; unable to walk on heels/toes. Reflexes: 2+ throughout except left knee 1+, ankle reflexes absent bilaterally. Plantars flexor. Sensation: Intact in hands, reduced in feet up to ankles. Coordination: Intact ([id number]-[id number], rnpm-kuxo-zvvd, rapid alternating), Romberg negative. Station/Gait: Normal stance, normal base gait, but impaired heel/toe walking. Overall: Findings point to proximal left > right lower extremity weakness with proximal and distal involvement, areflexia at ankles, reduced sensation in feet, consistent with a lumbosacral plexopathy and superimposed peripheral neuropathy rather than primary central pathology. Assessment & Plan Patient presenting with a complex presentation of left leg weakness that started rather subacutely.He has a fairly severe sensorimotor polyneuropathy, which complicates his entire picture. At this point, I think that his presentation is most compatible with: 1. Residua from lumbosacral plexopathy/diabetic amyotrophy versus high lumbosacral plexus nerve involvement such as femoral mononeuropathy 2. Severe generalized sensorimotor polyneuropathy Investigations have shown a positive MPO antibody, but also severe diabetes and he was first diagnosed. Either of these could have caused the plexopathy or femoral mononeuropathy. I do not see much involvement from lumbosacral plexopathy or a central lesion causing his presentation. 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 MRI of the lumbosacral spine showed mild disc bulges without severe neural foraminal impingement. MRI of the lumbosacral plexus did not show active plexitis. EMG ind icated severe generalized sensory motor polyneuropathy and lumbosacral plexopathy. Differential includes diabetic amyotrophy and possible vasculitic neuropathy due to positive myeloperoxidase antibody. - Repeat myeloperoxidase antibody test to confirm if it is a false positive. - Refer to rheumatology for further evaluation of possible vasculitic neuropathy. - Consider nerve biopsy if necessary after rheumatology evaluation. Type 2 diabetes mellitus with peripheral neuropathy Type 2 diabetes mellitus is well-controlled. Peripheral neuropathy is present, contributing to leg weakness and pain. Diabetes may be contributing to lumbosacral plexopathy. 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 Need to determine if this is a false positiveor indicative of a nerve problem requiring immune suppression. - Repeat myeloperoxidase antibody test. - Refer to rheumatology for evaluation of vasculitic neuropathy. - Order blood tests for infectious causes such as hepatitis and HIV. Vitamin D deficiency Vitamin D deficiency identified on lab tests. Patient on replacement. Patient Instructions 1. Labs today. 2. See wire drawing die maker when possible. 3. See Dr. Soria after the above have been completed. We have discussed the above details with Mr. Bryant at length and together we feel that this is an appropriate path of care. He is satisfied with this conversation and has no further questions at thistime. He is to contact the clinic with any questions or concerns. Robert Soria Neurologist, [facility] 11:22 AM 12/24/2024 This note will be shared with the patient and any medical providers as directed by them. The use ofvoice recognition and artificial intelligence technologies to aid in generating this note was discussed with the patient and verbal consent was obtained. Please excuse any typographical errors that may have been overlooked in proofreading. I spent 42 minutes on the date of the encounter with this patient consisting of activities before, during and after the encounter including time spent: Preparing to see the patient including review of the chart, tests, and/or outside records. Reviewing and verifying information regarding the chief complaint and history already recorded by ancillary staff and/or the patient. Obtaining history and performing medically appropriate evaluation. Counseling the patient regarding the diagnosis, additional diagnostic considerations, possible diagnostic testing, and any potential options for therapy, including conservative/lifestyle measures and pharmacotherapy including risks/benefits, side effects and adverse effects. I also counseled the patient on how to contact me with any questions or concerns, new or worsening symptoms. Ordering medications, tests, and/or procedures, and documenting the chart. Does not include time spent performing any injections/ procedures, or interpretation of any EMG or EEG services billed separately. I am the single focal point of care for a condition that requires longitudinal relationship and personalized care for condition(s) specified within this medical record 2024: Documentation of current mediations reviewed every visit 2. Does patient use tobacco? No 3. Patient has had no falls in calendar year 4. Does patient have Dementia? No documented in this encounter Plan of Treatment Scheduled Referrals Name Type Priority Associated Diagnoses Orde r Schedule REFERRAL RHEUMATOLOGY Follow Up Routine Lumbosacral plexopathy Ordered: 12/24/2024 documented as of this encounter Procedures Procedure Name Priority Date/Time Associated Diagnosis Comments HIV P24 ANTIGEN/ANTIBODY W/REFLEX TO CONFIRM ([facility]) Routine 12/24/2024 10:43 AM CDT Lumbosacral plexopathy ANTIPHOSPHOLIPID ANTIBODY TO [facility] ([facility]) Routine 12/24/2024 10:43 AM CDT Lumbosacral plexopathy ANCA PANEL ([facility]) Routine 12/24/2024 10:43 AM CDT Lumbosacral plexopathy HCV ANTIBODY ([facility]) Routine 10:43 AM CDT Lumbosacral plexopathy VITAMIN D, 25-HYDROXY ([facility]) Routine 12/24/2024 10:43 AM CDT Lumbosacral plexopathy SJOGREN'S ANTI-SS-A/-SS-B ([facility]) Routine 12/24/2024 10:43 AM CDT Lumbosacral plexopathy HEP B CORE ANTIBODY, TOTAL ([facility]) Routine 12/24/2024 10:43 AM CDT Lumbosacral plexopathy C-REACTIVE PROTEIN, QUANT ([facility]) Routine 12/24/2024 10:43 AM CDT Lumbosacral plexopathy HBSAG SCREEN ([facility]) Routine 10:43 AM CDT Lumbosacral plexopathy SEDIMENTATION RATE - WESTERGREN ([facility]) Routine 12/24/2024 10:43 AM CDT Lumbosacral plexopathy VITAMIN B12 ([facility]) Routine 12/24/2024 10:43 AM CDT Lumbosacral plexopathy ANTI-SCL-70 ANTIBODY (RDL) ([facility]) Routine 12/24/2024 10:43 AM CDT Lumbosacral plexopathy documented in this encounter Results * HIV P24 ANTIGEN/ANTIBODY W/REFLEX TO CONFIRM ([facility]) (12/24/2024 10:43 AM CDT) Pathologist [facility] HIV Antibody/p24 Antigen Screen ([facility]) Non Reactive Non Reactive [facility] 2 Comment: HIV-1/HIV-2 antibodies and HIV-1 p24 antigen were NOT detected. There is no laboratory evidence of HIV infection. HIV Negative Blood 12/24/2024 10:4 3 AM CDT 12/23/2024 11:00 PM CDT Narrative [facility] 2 - 01/08/2025 4:08 PM CDT Performed at: [address] [place] [id number] Wire Preparation Worker: John Rockwell MD, Phone: [phone] us Robert Soria MD [facility] ORDERABLES Final Resul t [facility] 2 * HEP B CORE ANTIBODY, TOTAL ([facility]) (12/24/2024 10:43 AM CDT) Pathologist [facility] Hepatits B Core Total Antibody ([facility]) Negative Negative [facility] 2 Blood 12/24/2024 10:4 3 AM CDT 12/23/2024 11:00 PM CDT Narrative [facility] 2 - 01/08/2025 4:08 PM CDT Performed at: [facility] [address] [id number] Wire Preparation Worker: John Rockwell MD, Phone: [phone] Robert Soria MD [facility] ORDERABLES Final Resul t Performing Organization Address City/[facility] Co de Phone Number [facility] 2 * HBSAG SCREEN ([facility]) (12/24/2024 10:43 AM CDT) Hepatitis B Surface Antigen Screen ([facility]) Negative Negative [facility] 2 Blood 12/24/2024 10:4 3 AM CDT 12/23/2024 11:00 PM CDT Narrative [facility] 2 - 01/08/2025 4:08 PM CDT Performed at: [address] [id number] Wire Preparation Worker: John Rockwell MD, Phone: [phone] Robert Soria MD [facility] ORDERABLES Final Resul t Performing Organization Address [facility] de Phone Number [facility] 2 * HCV ANTIBODY ([facility]) (12/24/2024 10:43 AM CDT) Hepatitis C Virus Antibody ([facility]) Non Reactive Non Reactive [facility] 2 Comment: HCV antibody alone does not differentiate between previously resolved infection and active infection. Equivocal and Reactive HCV antibody results should be followed up with an HCV RNA test to support the diagnosis of active HCV infection. Blood 12/24/2024 10:4 3 AM CDT 12/23/2024 11:00 PM CDT Narrative [facility] 2 - 01/08/2025 4:08 PM CDT Performed at: [address] [id number] Wire Preparation Worker: John Rockwell MD, Phone: [phone] Robert Soria MD [facility] ORDERABLES Final Resul t Performing Organization Address City/[facility] Co de Phone Number [facility] 2 * SJOGREN'S ANTI-SS-A/-SS-B ([facility]) (12/24/2024 10:43 AM CDT) Sjogren's Anti-SS-A ([facility]) <0.2 0.0 - 0.9 AI [facility] 4 Sjogren's Anti-SS-B ([facility]) <0.2 0.0 - 0.9 AI [facility] 4 Blood 12/24/2024 10:4 3 AM CDT 12/23/2024 11:00 PM CDT Narrative [facility] 4 - 01/08/2025 4:08 PM CDT Performed at: [facility] [id number] Wire Preparation Worker: John Rockwell MD, Phone: [phone] Robert Soria MD [facility] ORDERABLES Final Resul t Performing Organization Address City/[facility]/ZIP Co de Phone Number [facility] 4 * SEDIMENTATION RATE - WESTERGREN ([facility]) (12/24/2024 10:43 AM CDT) Pathologist [facility] Sed Rate- Westergren ([facility]) 13 0 - 30 mm/hr [facility] 2 Blood 12/24/2024 10:4 3 AM CDT 12/23/2024 11:00 PM CDT Narrative [facility] 2 - 01/08/2025 4:08 PM CDT Performed at: [address] [id number] Wire Preparation Worker: John Rockwell MD, Phone: [phone] Robert Soria MD [facility] ORDERABLES Final Resul t [facility] 2 * C-REACTIVE PROTEIN, QUANT ([facility]) (12/24/2024 10:43 AM CDT) C-Reactive Protein Quantitave ([facility]) 1 0 - 10 mg/L [facility] 2 Blood 12/24/2024 10:4 3 AM CDT 12/23/2024 11:00 PM CDT Narrative [facility] 2 - 01/08/2025 4:08 PM CDT Performed at: [address] [id number] Wire Preparation Worker: John Rockwell MD, Phone: [phone] Robert Soria MD [facility] ORDERABLES Final Resul t [facility] 2 * (ABNORMAL) ANCA PANEL ([facility]) (12/24/2024 10:43 AM CDT) Anti-MPO Antibodies ([facility]) >8.0(H) 0.0 - 0.9 units [facility] 3 Anti-PR3 Antibodies ([facility]) 0.4 0.0 - 0.9 units [facility] 3 Cytoplasmic C-ANCA ([facility]) <1:20 Neg:<1:20 titer [facility] 3 Perinuclear P-ANCA ([facility]) <1:20 Neg:<1:20 titer [facility] 3 Comment: The presence of positive fluorescence exhibiting P-ANCA or C-ANCA patterns alone is not specific for the diagnosis of Xochilt's Granulomatosis (WG) or microscopic polyangiitis. Decisions about treatment should not be based solely on ANCA IFA results. The International ANCA Group Consensus recommends follow up testing of positive sera with both VA-3 and MPO-ANCA enzyme immunoassays. As many as 5% serum samples are positive only by EIA. Ref. AM J Clin Pathol 1999;111:507-513. Atypical pANCA ([facility]) <1:20 Neg:<1:20 titer [facility] 3 Comment: The atypical pANCA pattern has been observed in a significant percentage of patients with ulcerative colitis, primary sclerosing cholangitis and autoimmune hepatitis. Blood 12/24/2024 10:4 3 AM CDT 12/23/2024 11:00 PM CDT Narrative [facility] 3 - 01/08/2025 4:08 PM CDT Performed at: [address] [id number] Wire Preparation Worker: Vipul Olmos MD, Phone: [phone] Robert Soria MD [facility] ORDERABLES Final Resul t [facility] * ANTIPHOSPHOLIPID ANTIBODY TO [facility]ODUCT[facility] ([facility]) (12/24/2024 10:43 AM CDT) Specimen Status ([facility]) Comment [facility] 1 Cardiolipin IgM ([facility]) Negative [facility] 1 Phosphatidyl Inositol IgM ([facility]) Negative [facility] 1 Phosphatidyl Glyercol IgM ([facility]) Negative [facility] 1 Phosphatidyl Serine IgM ([facility]) Negative [facility] 1 Cardiolipin IgG ([facility]) Negative [facility] 1 Phosphatidyl Inositol IgG ([facility]) Negative [facility] 1 Phosphatidyl Glycerol IgG ([facility]) Negative [facility] 1 Phosphatidyl Serine IgG ([facility]) Negative [facility] 1 Cardiolipin IgA ([facility]) Negative [facility] 1 Phosphatidyl Inositol IgA ([facility]) Negative [facility] 1 Phosphatidyl Glycerol IgA ([facility]) Negative [facility] 1 Phosphatidyl Serine IgA ([facility]) 15.8 [facility] 1 Comment: Borderline Interpretation APS ([facility]) Comment [facility] 2 Comment: Results for CL are reported as phospholipid units based on Briscoe' Antiphospholipid antibody standards: GPL for IgG phospholipid units, MPL for IgM phospholipid units, APL for IgA phospholipid units. Results for PI, PG, and PS are based on normalized population data standardized to equivalent phospholipid units (Approximately 3 multiples of the median or 4 standard deviations). GPL MPL APL Result Interpretation <=10 <=10 <=15 Negative No evidence for antiphospholipid antibodies >10-<=20 10-<25 15-<=28 Borderline Not associated with poor outcome or manifestations. >20-=<80 >=25-<80 >28-<=80 Positive Can be associated with recurrent loss, lupus, and thrombosis. >80 >80 >80 High Stronger association Positive with thromboembolic events / autoimmune disease. Blood 12/24/2024 10:4 3 AM CDT 12/23/2024 11:00 PM CDT Narrative [facility] 2 - 01/08/2025 4:08 PM CDT Performed at: 01 - [facility] [address], [place], [place] [id number] Wire Preparation Worker: Salomon Girard [facility], Phone: [phone] Performed at: 02 - [facility] [id number] Wire Preparation Worker: John Rockwell MD, Phone: [phone] Robert Soria MD [facility] ORDERABLES Final Resul t [facility] 2 [facility] 1 * ANTI-SCL-70 ANTIBODY (RDL) ([facility]) (12/24/2024 10:43 AM CDT) Anti-Scl-70 Antibody (RDL) ([facility]) <20 <20 Units [facility] 5 Blood 12/24/2024 10:4 3 AM CDT 12/23/2024 11:00 PM CDT Narrative [facility] 5 - 01/08/2025 4:08 PM CDT Performed at: [address] [facility] [address] [place] [id number] Wire Preparation Worker: Domingo Townsend MD, Phone: [phone] us Robert Soria MD [facility] ORDERABLES Final Resul t Performing Organization Address City/[facility]/ZIP Co de Phone Number [facility] 5 * (ABNORMAL) VITAMIN D, 25-HYDROXY ([facility]) (12/24/2024 10:43 AM CDT) Vitamin D,25 Hydroxy ([facility]) 23.1(L) 30.0 - 100.0 ng/mL [facility] 2 Comment: Vitamin D deficiency has been defined by the [place] of Medicine and an Endocrine Society practice guideline as a level of serum 25-OH vitamin D less than 20 ng/mL (1,2). The Endocrine Society went on to further define vitamin D insufficiency as a level between 21 and 29 ng/mL (2). 1. IOM ([place] of Medicine). 2010. Dietary reference intakes for calcium and D. [place]: The National Academies Press. 2. [place] MF, Rasheed BEAUCHAMP, Son ALFONSO, et al. Evaluation, treatment, and prevention of vitamin D deficiency: an Endocrine Society clinical practice guideline. JCEM. 2010; 96(7):1911-30. Blood 12/24/2024 10:4 3 AM CDT 12/23/2024 11:00 PM CDT Narrative [facility] 2 - 01/08/2025 4:08 PM CDT Performed at: [address] [place] [id number] Wire Preparation Worker: John Rockwell MD, Phone: [phone] Robert Soria MD [facility] ORDERABLES Final Resul t [facility] 2 * VITAMIN B12 ([facility]) (12/24/2024 10:43 AM CDT) Vitamin B12 ([facility]) 540 232 - 1,245 pg/mL [facility] 2 Blood 12/24/2024 10:4 3 AM CDT 12/23/2024 11:00 PM CDT Narrative [facility] 2 - 01/08/2025 4:08 PM CDT Performed at: 02 - [facility] [place] [address] [place] [id number] Wire Preparation Worker: John Rockwell MD, Phone: [phone] us Robert Soria MD [facility] ORDERABLES Final Resul t [facility] 2 documented in this encounter Visit Diagnoses Diagnosis Lumbosacral plexopathy- Primary Lumbosacral plexus lesions documented in this encounter Care Teams Parachute/Combatant Diver Officer Relationship Specialty Start Date End Date All Klein MD [address] [place] [address] PCP - General 10/09/24 Robert Soria MD [address] [facility] [address] [place] [address] Neurology 10/09/24 documented as of this encounter
[2025-01-19] VITALS (16 sets, daily range): BP systolic 128–147; BP diastolic 73–87; PULSE 73–87; RESP 16–20; TEMP 37.1–37.9; O2SAT 93–99; BMI 23.1; BMI 23.8; BMI 23.9
--- NOTE | 2025-01-19 03:08 | CRLHL7_ITS ---
For Patients: As a result of the Century Cures Act, medical imaging exams and procedure reports are released immediately into your electronic medical record. You may view this report before your referring provider. If you have questions, please contact your health care provider. INDICATION: Unable to open eyes, head pressure. TECHNIQUE: CT head without contrast. COMPARISON: None. FINDINGS: CSF spaces: Within normal limits for age. Brain parenchyma: The cordova-white differentiation is maintained. No evidence of intracranial hemorrhage, extra-axial collection, or midline shift. Skull base and calvarium: Mild scattered mucosal thickening throughout the paranasal sinuses. Mastoid air cells are clear. The visualized orbits are grossly unremarkable. Mildly expansile heterogeneous appearance of the right sphenoid wing. IMPRESSION: 1. No acute intracranial hemorrhage or mass effect. 2. Mildly expansile heterogeneous appearance of the right sphenoid wing. Differential considerations include intraosseous meningioma or Paget`s disease. Please note that all CT scans at this facility use dose modulation, iterative reconstruction, and/or weight-based dosing when appropriate to reduce radiation dose to as low as reasonably achievable. Dictated by Ananth Nash MD @ 01/19/2025 3:35:17 AM (Electronically Signed)
--- OUTSIDE RECORDS SUMMARY | 2025-01-19 03:10 | XMS_ITS | Clinical Summary ---
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 Gender Identity Not on file Sexual Orientation Not on file Plan of Treatment Health Maintenance Due Date Last Done Comments ADVANCE CARE PLANNING 1965 ANNUAL REVIEW OF HM ORDERS 1965 CT COLONOGRAPHY 1965 DIABETES SCREENING 1965 FIT 1965 FLEX SIG 1965 sDNA (Cologuard) 1965 YEARLY PREVENTIVE VISIT 1968 HIV SCREENING 1980 HEPATITIS B VACCINE (1 of 3 - 19+ 3-dose series) 1984 DTAP/TDAP/TD VACCINE (1 - Tdap) 1990 LIPID 2005 PNEUMOCOCCAL VACCINE 50+ YEARS (1 of 1 - PCV) 09/09/2015 ZOSTER VACCINE (1 of 2) 09/09/2015 PHQ-2 (once per calendar year) 2024 COVID-19 VACCINE (3 - 2024-2 6 season) 2024 03/18/2023, 10/29/2020 INFLUENZA VACCINE (#1) 2024 COLONOSCOPY 11/01/2033 11/02/2023 COLORECTAL CANCER SCREENING 11/01/2033 HEPATITIS C SCREENING Completed 11/22/2023 HPV VACCINE (No Doses Required) Completed MENINGITIS VACCINE Aged Out No longer eligible based on patient's age to complete this topic Procedures Procedure Name Priority Date/Time Associated Diagnosis Comments ANGIOTENSIN CONVERTING ENZYME Routine 11/15/2024 11:46 AM CDT Lumbosacral plexus lesion Avitaminosis D MAG AND SGPG ANTIBODIES IGM Routine 11/15/2024 11:46 AM CDT Lumbosacral plexus lesion Avitaminosis D VITAMIN D DEFICIENCY SCREENING Routine 11/15/2024 11:46 AM CDT Lumbosacral plexus lesion Avitaminosis D VITAMIN B12 Routine 11/15/2024 11:46 AM CDT Lumbosacral plexus lesion Avitaminosis D MYELOPEROXIDASE AND PROTEINASE 3 PANEL Routine 11/15/2024 11:46 AM CDT Lumbosacral plexus lesion Avitaminosis D MYOMARKER PANEL 3 PLUS Routine 11:46 AM CDT Lumbosacral plexus lesion Avitaminosis D ERYTHROCYTE SEDIMENTATION RATE AUTO Routine 11/15/2024 11:46 AM CDT Lumbosacral plexus lesion Avitaminosis D SSB LA NADER ANTIBODY IGG Routine 11/16/19 11:46 AM CDT Lumbosacral plexus lesion Avitaminosis D SSA RO NADER ANTIBODY IGG Routine 11/16/19 11:46 AM CDT Lumbosacral plexus lesion Avitaminosis D TSH Routine 11/15/2024 11:46 AM CDT Lumbosacral plexus lesion Avitaminosis D GANGLIOSIDE ANTIBODIES IGG AND IGM Routine 11/15/2024 11:46 AM CDT Lumbosacral plexus lesion Avitaminosis D GLUTAMIC ACID DECARBOXYLASE ANTIBODY Routine 11/15/2024 11:46 AM CDT Lumbosacral plexus lesion Avitaminosis D CK TOTAL Routine 11/15/2024 11:46 AM CDT Lumbosacral plexus lesion Avitaminosis D CRP INFLAMMATION Routine 11/15/2024 11:4 6 AM CDT Lumbosacral plexus lesion Avitaminosis D PARANEOPLASTIC, AUTOANTIBODY EVALUATION CASCADE Routine 11/15/2024 11:46 AM CDT Lumbosacral plexus lesion Avitaminosis D ALDOLASE Routine 11/15/2024 11:46 AM CDT Lumbosacral plexus lesion Avitaminosis D ANTI NUCLEAR ABDI IGG BY IFA WITH REFLEX Routine 11/15/2024 11:46 AM CDT Lumbosacral plexus lesion Avitaminosis D from Last 3 Months Results * MyoMarker Panel 3 Plus (11/15/2024 11:46 AM CDT) Anti-Corinne-1 Ab <20 <20 Units 11/27/2024 3:08 PM CDT [facility] Anti-PL-7 Ab Negative Negative 11/27/2024 3:08 PM CDT [facility] Comment: This test was developed and its performance characteristics determined by [employer]. It has not been cleared or approved by the Food and Drug Administration. Anti-PL-12 Ab Negative Negative 11/27/2024 3:08 PM CDT [facility] Comment: This test was developed and its performance characteristics determined by [facility]. It has not been cleared or approved by the Food and Drug Administration. Anti-EJ Ab Negative Negative 11/27/2024 3:08 PM CDT [facility] Comment: This test was developed and its performance characteristics determined by [facility]. It has not been cleared or approved by the Food and Drug Administration. Anti-OJ Ab Negative Negative 11/27/2024 3:08 PM CDT [facility] Comment: This test was developed and its performance characteristics determined by [facility]. It has not been cleared or approved by the Food and Drug Administration. Anti-SRP Ab Negative Negative 11/27/2024 3:08 PM CDT [facility] Comment: This test was developed and its performance characteristics determined by [facility]. It has not been cleared or approved by the Food and Drug Administration. Uofj-Vl-9-Ab Negative Negative 11/27/2024 3:08 PM CDT [facility] Comment: This test was developed and its performance characteristics determined by [facility]. It has not been cleared or approved by the Food and Drug Administration. Zxsu-PJJ-9dbckg Ab <20 <20 Units 2024 3:08 PM CDT [facility] Comment: This test was developed and its performance characteristics determined by [facility]. It has not been cleared or approved by the Food and Drug Administration. Anti-MDA-5 Ab (CADM-140) <20 <20 Units 11/27/2024 3:08 PM CDT [facility] Comment: This test was developed and its performance characteristics determined by [facility]. It has not been cleared or approved by the Food and Drug Administration. Anti-NXP-2 (P140) Ab <20 <20 Units 11/27/2024 3:08 PM CDT [facility] Comment: This test was developed and its performance characteristics determined by [facility]. It has not been cleared or approved by the Food and Drug Administration. Anti-SAE1 Ab, IgG <20 <20 Units 025 3:08 PM CDT [facility] Comment: This test was developed and its performance characteristics determined by [facility]. It has not been cleared or approved by the Food and Drug Administration. Anti-PM/Scl-100 Ab <20 <20 Units 2024 3:08 PM CDT [facility] Comment: This test was developed and its performance characteristics determined by [facility]. It has not been cleared or approved by the Food and Drug Administration. Anti-Ku Ab Negative Negative 11/27/2024 3:08 PM CDT [facility] Comment: This test was developed and its performance characteristics determined by [facility]. It has not been cleared or approved by the Food and Drug Administration. Anti-SS-A 52kD Ab, IgG <20 <20 Units 11/27/2024 3:08 PM CDT [facility] Comment: This test was developed and its performance characteristics determined by [facility]. It has not been cleared or approved by the Food and Drug Administration. Anti-U1 CIGARETTE INSPECTOR Ab <20 <20 Units 11/27/2024 3:08 PM CDT [facility] Anti-U2 CIGARETTE INSPECTOR Ab Negative Negative 11/27/2024 3:08 PM CDT [facility] Comment: This test was developed and its performance characteristics determined by [facility]. It has not been cleared or approved by the Food and Drug Administration. Anti-U3 CIGARETTE INSPECTOR (Fibrillarin) Negative Negative 11/27/2024 3:08 PM CDT [facility] Comment: This test was developed and its performance characteristics determined by [facility]. It has not been cleared or approved by the Food and Drug Administration. Interpretation for Anti-Corinne-1, Qojx-DTH-4qysab, Anti-MDA-5, Anti-NXP-2, Anti-SAE1, Anti-PM/Scl-100, Anti-SS-A 52 kD, Anti-U1 CIGARETTE INSPECTOR: Negative: <20 Weak Positive: 20 - 39 Moderate Positive: 40 - 80 Strong Positive: >80 . Test Performed by: [facility] [address] [place] [address] Blood STRUCTURE OF LEFT UPPER LIMB / Unknown Venipuncture / Unknown 11/15/2024 11:46 AM CDT 11/15/2024 11:48 AM CDT us Robert Soria MD LAB - BLOOD ORDERABLES Final R esult [facility] [address] [phone] * (ABNORMAL) Myeloperoxidase and Proteinase 3 Panel (11/15/2024 11:46 AM CDT) MPO Abdi IgG Instrument Value 21.0(H) <3.5 U/mL 11/16/2024 12:44 PM CDT [facility]EN DO Myeloperoxidase Antibody IgG Positive(A) Negative 11/16/2024 12:44 PM CDT [facility] Proteinase 3 Abdi IgG Instrument Value <1.0 <2.0 U/mL 11/16/2024 12:44 PM CDT [facility] DO Proteinase 3 Antibody IgG Negative Negative 11/16/2024 12:44 PM CDT [facility] Blood STRUCTURE OF LEFT UPPER LIMB / Unknown Venipuncture / Unknown 11/15/2024 11:46 AM CDT 11/15/2024 11:48 AM CDT Robert Soria MD LAB - BLOOD ORDERABLES Final R esult [facility]ENDO [facility]Prot/Endo [address] [facility], [address] * SSB La NADER Antibody IgG (11/15/2024 11:46 AM CDT) SSB Abdi IgG Instrument Value 0.9 <7.0 U/mL 11/16/2024 12:44 PM CDT [facility]/END O SSB (La) Antibody IgG Negative Negative 11/16/2024 12:44 PM CDT [facility]PROT/END O Blood STRUCTURE OF LEFT UPPER LIMB / Unknown Venipuncture / Unknown 11/15/2024 11:46 AM CDT 11/15/2024 11:48 AM CDT Robert Soria MD LAB - BLOOD ORDERABLES Final R esult [facility]PROT/ENDO Specialty Core/Prot/Endo [address] [facility] [address], [address] * SSA Ro NADER Antibody IgG (11/15/2024 11:46 AM CDT) SSA Abdi IgG Instrument Value <0.5 <7.0 U/mL 11/16/2024 12:44 PM CDT [facility]PROT/END O SSA (Ro) Antibody IgG Negative Negative 11/16/2024 12:44 PM CDT [facility]PROT/END O Blood STRUCTURE OF LEFT UPPER LIMB / Unknown Venipuncture / Unknown 11/15/2024 11:46 AM CDT 11/15/2024 11:48 AM CDT Robert Soria MD LAB - BLOOD ORDERABLES Final R esult [facility]/ENDO [facility] Core/Prot/Endo [address] [facility], [address] * Anti Nuclear Abdi IgG by IFA with Reflex (11/15/2024 11:46 AM CDT) ARABELLA interpretation Negative Negative 2024 3:12 PM CDT [facility]EN DO Comment: Negative: <1:40 Borderline Positive: 1:40 - 1:80 Positive: >1:80 Blood STRUCTURE OF LEFT UPPER LIMB / Unknown Venipuncture / Unknown 11/15/2024 11:46 AM CDT 11/15/2024 11:48 AM CDT Robert Soria MD LAB - BLOOD ORDERABLES Final R esult Performing Organization Address City/State/[facility] Co de Phone Number [facility]PROT/ENDO Specialty Core/Prot/Endo [address] [facility], [address] * MAG and SGPG Antibodies IgM (11/15/2024 11:46 AM CDT) Myelin Associated Glycoprotein (MAG) IgM <1000 0 - 999 TU 11/17/2024 12:14 AM CDT [facility] Comment: INTERPRETIVE INFORMATION: MAG Antibody, IgM BLAKE An elevated IgM antibody concentration greater than 999 TU against myelin-associated glycoprotein (MAG) suggests active demyelination in peripheral neuropathy. A normal concentration (less than 999 TU) generally rules out an anti-MAG antibody-associated peripheral neuropathy. TU=Titer Units This test was developed and its performance characteristics determined by [facility]. It has not been cleared or approved by the [place] Food and Drug Administration. This test was performed in a CLIA certified laboratory and is intended for clinical purposes. SGPG Antibody, IgM 0.13 0.00 - 0.99 IV 11/17/2024 12:14 AM CDT [facility] Comment: INTERPRETIVE INFORMATION: SGPG Antibody, IgM The majority of ffxuchi-6-wtumfllqls paragloboside (SGPG) IgM-positive sera will show reactivity against MAG. Patients who are SGPG IgM positive and MAG IgM negative may have multi-focal motor neuropathy with conduction block. This test was developed and its performance characteristics determined by [facility]. It has not been cleared or approved by the [place] Food and Drug Administration. This test was performed in a CLIA certified laboratory and is intended for clinical purposes. Performed By: [facility] [address] [place] [address] Manager Shell: Joseph Daniel MD, PhD CLIA Number: [id number] Blood STRUCTURE OF LEFT UPPER LIMB / Unknown Venipuncture / Unknown 11/15/2024 11:46 AM CDT 11/15/2024 11:48 AM CDT Robert Soria MD LAB - IMMUNOLOGY ORDERABLES Fi nal Result [address] [address], [facility] [phone] * Ganglioside Antibodies IgG and IgM (11/15/2024 11:46 AM CDT) GM1 Antibody IgG 3 0 - 50 IV 11/20/19 25 11:11 PM CDT [facility] GM1 Antibody IgM 5 0 - 50 IV 11/20/19 25 11:11 PM CDT [facility] Comment: INTERPRETIVE INFORMATION: Ganglioside (GM1) Antibodies, IgG and IgM 29 IV or less: Negative 30-50 IV: Equivocal 51-100 IV: Positive 101 IV or greater: Strong positive Ganglioside antibodies are associated with diverse peripheral neuropathies. Elevated antibody levels to ganglioside-monosialic acid (GM1) are associated with motor or sensorimotor neuropathies, particularly multifocal motor neuropathy. Anti-GM1 may occur as IgM (polyclonal or monoclonal) or IgG antibodies. These antibodies may also be found in patients with diverse connective tissue diseases as well as normal individuals. These tests by themselves are not diagnostic and should be used in conjunction with other clinical parameters to confirm disease. This test was developed and its performance characteristics determined by [facility]. It has not been cleared or approved by the [place] Food and Drug Administration. This test was performed in a CLIA certified laboratory and is intended for clinical purposes. GD1b Antibody IgG 4 0 - 50 IV 025 11:11 PM CDT [facility] GD1b Antibody IgM 3 0 - 50 IV 025 11:11 PM CDT [facility] GQ1b Antibody IgG 3 0 - 50 IV 025 11:11 PM CDT [facility] GQ1b Antibody IgM 3 0 - 50 IV 025 11:11 PM CDT [facility] Comment: INTERPRETIVE INFORMATION: Ganglioside (GD1b and GQ1b) Antibodies, IgG and IgM 29 IV or less: Negative 30-50 IV: Equivocal 51-100 IV: Positive 101 IV or greater: Strong positive Ganglioside antibodies are associated with diverse peripheral neuropathies. GD1b antibodies are predominantly found in sensory ataxic neuropathy syndrome. GQ1b antibodies are seen in more than 80% of patients with Alonso-Stokes syndrome and may be elevated in Guillain-[place] syndrome patients with ophthalmoplegia. These tests by themselves are not diagnostic and should be used in conjunction with other clinical parameters to confirm disease. This test was developed and its performance characteristics determined by [facility]. It has not been cleared or approved by the US Food and Drug Administration. This test was performed in a CLIA certified laboratory and is intended for clinical purposes. Performed By: [facility] [address] [place] [id number] Manager Shell: Joseph Daniel MD, PhD CLIA Number: [id number] Blood STRUCTURE OF LEFT UPPER LIMB / Unknown Venipuncture / Unknown 11/15/2024 11:46 AM CDT 11/15/2024 11:48 AM CDT Robert Soria MD LAB - IMMUNOLOGY ORDERABLES Fi nal Result [address] [address] [phone] * (ABNORMAL) Vitamin D Deficiency (11/15/2024 11:46 AM CDT) Vitamin D, Total (25-Hydroxy) 19(L) 20 - 50 ng/mL 11/15/2024 5:27 PM CDT [facility] Comment:mild to moderate def iciency Blood STRUCTURE OF LEFT UPPER LIMB / Unknown Venipuncture / Unknown 11/15/2024 11:46 AM CDT 11/15/2024 11:48 AM CDT Narrative [facility] - 11/15/2024 5:27 PM CDT Season, race, dietary intake, and treatment affect the concentration of 28-dppoacf-Viedbbj D. Values may decrease during winter months and increase during summer months. Vitamin D determination is routinely performed by an immunoassay specific for 25 hydroxyvitamin D3. If an individual is on vitamin D2(ergocalciferol) supplementation, please specify 25 OH vitamin D2 and D3 level determination by LCMSMS test VITD23. Robert Soria MD LAB - BLOOD ORDERABLES Final R esult [facility] [address] [facility], [address] [place] [address], [facility] * TSH (11/15/2024 11:46 AM CDT) TSH 1.11 0.30 - 4.20 uIU/mL 11/15/2024 12:29 PM CDT LABORATORY Blood STRUCTURE OF LEFT UPPER LIMB / Unknown Venipuncture / Unknown 11/15/2024 11:46 AM CDT 11/15/2024 11:48 AM CDT Robert Soria MD LAB - BLOOD ORDERABLES Final R esult [facility]ORATORY [facility] [address] Lab (1st floor, no room number) [place] [address], [facility] * Paraneoplastic, Autoantibody Evaluation [place] (11/15/2024 11:46 AM CDT) Interpretive Comments SEE NOTE 11/26/2024 5:08 PM CDT [facility] Comment: A negative basic paraneoplastic evaluation result does not rule out all clinically relevant antibodies. If indicated, a comprehensive neurological phenotype-specific autoimmune/paraneoplastic evaluation (e.g. encephalopathy, movement disorders, myelopathy, or axonal neuropathy) should be considered [email or web address] These evaluations include screening cell-based assays optimized for detection of recently discovered antibodies. IFA Notes (PAVAL) None. 025 5:08 PM CDT [facility] Amphiphysin Ab, S Negative Negative 025 5:08 PM CDT [facility] Comment: ADDITIONAL INFORMATION This test was developed and its performance characteristics determined by [facility] in a manner consistent with CLIA requirements. This test has not been cleared or approved by the U.S. Food and Drug Administration. AGNA-1, S Negative Negative 11/26/2024 5:08 PM CDT [facility] Comment: ADDITIONAL INFORMATION This test was developed and its performance characteristics determined by [facility] in a manner consistent with CLIA requirements. This test has not been cleared or approved by the U.S. Food and Drug Administration. SUSANNA-1, S Negative Negative 11/26/2024 5:08 PM CDT [facility] Comment: ADDITIONAL INFORMATION This test was developed and its performance characteristics determined by [facility] in a manner consistent with CLIA requirements. This test has not been cleared or approved by the U.S. Food and Drug Administration. SUSANNA-2, S Negative Negative 11/26/2024 5:08 PM CDT [facility] Comment: ADDITIONAL INFORMATION This test was developed and its performance characteristics determined by [facility] in a manner consistent with CLIA requirements. This test has not been cleared or approved by the U.S. Food and Drug Administration. SUSANNA-3, S Negative Negative 11/26/2024 5:08 PM CDT [facility] Comment: ADDITIONAL INFORMATION This test was developed and its performance characteristics determined by [facility] in a manner consistent with CLIA requirements. This test has not been cleared or approved by the U.S. Food and Drug Administration. CRMP-5-IgG, S Negative Negative 11/26/2024 5:08 PM CDT [facility] Comment: ADDITIONAL INFORMATION This test was developed and its performance characteristics determined by [facility] in a manner consistent with CLIA requirements. This test has not been cleared or approved by the U.S. Food and Drug Administration. ENGINE REPAIRER PRODUCTION-1, S Negative Negative 11/26/2024 5:08 PM CDT [facility] Comment: ADDITIONAL INFORMATION This test was developed and its performance characteristics determined by [facility] in a manner consistent with CLIA requirements. This test has not been cleared or approved by the U.S. Food and Drug Administration. ENGINE REPAIRER PRODUCTION-2, S Negative Negative 11/26/2024 5:08 PM CDT [facility] Comment: ADDITIONAL INFORMATION This test was developed and its performance characteristics determined by [facility] in a manner consistent with CLIA requirements. This test has not been cleared or approved by the U.S. Food and Drug Administration. ENGINE REPAIRER PRODUCTION-Tr, S Negative Negative 11/26/2024 5:08 PM CDT [facility] Comment: ADDITIONAL INFORMATION This test was developed and its performance characteristics determined by [facility] in a manner consistent with CLIA requirements. This test has not been cleared or approved by the U.S. Food and Drug Administration. Test Performed by: [facility] [id number] Nail Puller: Jonny Dutta Ph.D.; CLIA# [id number] Blood STRUCTURE OF LEFT UPPER LIMB / Unknown Venipuncture / Unknown 11/15/2024 11:46 AM CDT 11/15/2024 11:48 AM CDT Robert Soria MD LAB - BLOOD ORDERABLES Final R [facility] Performing Organization Address [facility]/State/ZIP Co de Phone Number [address] [id number] [phone] * Glutamic acid decarboxylase antibody (11/15/2024 11:46 AM CDT) Glutamic Acid Decarboxylase Antibody <5.0 0.0 - 5.0 IU/mL 11/17/2024 4:57 PM CDT [facility] Comment: INTERPRETIVE INFORMATION: Glutamic Acid Decarboxylase Antibody A value greater than 5.0 IU/mL is considered positive for Glutamic Acid Decarboxylase Antibody (BELINDA Ab). This assay is intended for the semi-quantitative determination of the BELINDA Ab in human serum. Results should be interpreted within the context of clinical symptoms. Performed By: [facility] [address] [place] [id number] Manager Shell: Joseph Daniel MD, PhD CLIA Number: [id number] Blood STRUCTURE OF LEFT UPPER LIMB / Unknown Venipuncture / Unknown 11/15/2024 11:46 AM CDT 11/15/2024 11:48 AM CDT Robert Soria MD LAB - BLOOD ORDERABLES Final R esult [facility] [address] [place] [address], [facility] [phone] * Erythrocyte sedimentation rate auto (11/15/2024 11:46 AM CDT) Erythrocyte Sedimentation Rate 14 0 - 20 mm/hr 11/15/2024 12:16 PM CDT [facility] Blood STRUCTURE OF LEFT UPPER LIMB / Unknown Venipuncture / Unknown 11/15/2024 11:46 AM CDT 11/15/2024 11:48 AM CDT Robert Soria MD LAB - BLOOD ORDERABLES Final R esult Performing Organization Address City/[facility]/ZIP Co de Phone Number [facility] [address] Lab (1st floor, no room number) [place] [address] * CRP inflammation (11/15/2024 11:46 AM CDT) Pathologist [facility] [place] CRP Inflammation <3.00 <5.00 mg/L 11/16/19 12:22 PM CDT [facility] Blood STRUCTURE OF LEFT UPPER LIMB / Unknown Venipuncture / Unknown 11/15/2024 11:46 AM CDT 11/15/2024 11:48 AM CDT Robert Soria MD LAB - BLOOD ORDERABLES Final R esult Performing Organization Address City/[facility]/ZIP Co de Phone Number [facility] [address] Lab (1st floor, no room number) [place] [address] * CK total (11/15/2024 11:46 AM CDT) Pathologist [facility] [place] CK 266 39 - 308 U/L 11/15/2024 12:22 PM CDT [facility] Blood STRUCTURE OF LEFT UPPER LIMB / Unknown Venipuncture / Unknown 11/15/2024 11:46 AM CDT 11/15/2024 11:48 AM CDT Robert Soria MD LAB - BLOOD ORDERABLES Final R esult [facility] [address] Lab (1st floor, no room number) [place] [address] * Angiotensin converting enzyme (11/15/2024 11:46 AM CDT) Angiotensin Converting Enzyme 23 16 - 85 U/L 11/16/2024 10:11 PM CDT [facility] Comment: Performed By: [facility] [address] [place] [address] Manager Shell: Joseph Daniel MD, PhD CLIA Number: [id number] Blood STRUCTURE OF LEFT UPPER LIMB / Unknown Venipuncture / Unknown 11/15/2024 11:46 AM CDT 11/15/2024 11:48 AM CDT Robert Soria MD LAB - BLOOD ORDERABLES Final R esult Performing Organization Address City/[facility]/ZIP Co de Phone Number [facility] [employer] [address] [place] [id number] [phone] * Aldolase (11/15/2024 11:46 AM CDT) Aldolase 6.1 1.2 - 7.6 U/L 11/16/2024 10:13 PM CDT [facility] Comment: REFERENCE INTERVAL: Aldolase Access complete set of age- and/or gender-specific reference intervals for this test in the [facility] Test Directory ([facility]). Performed By: [facility] [address] [place] [id number] Manager Shell: Joseph Daniel MD, PhD CLIA Number: [id number] Blood STRUCTURE OF LEFT UPPER LIMB / Unknown Venipuncture / Unknown 11/15/2024 11:46 AM CDT 11/15/2024 11:48 AM CDT Robert Soria MD LAB - BLOOD ORDERABLES Final R esult [facility] [address] [place] [id number], [facility] [phone] * Vitamin B12 (11/15/2024 11:46 AM CDT) Vitamin B12 563 232 - 1,245 pg/mL 11/15/2024 5:27 PM CDT [facility] Blood STRUCTURE OF LEFT UPPER LIMB / Unknown Venipuncture / Unknown 11/15/2024 11:46 AM CDT 11/15/2024 11:48 AM CDT Robert Soria MD LAB - BLOOD ORDERABLES Final R esult [facility] [address] [facility], Room [address] [place] [phone], [facility] from Last 3 Months Insurance [employer] Care Teams Cut Off Machine Helper Relationship Specialty Start Date End Date All Klein MD [address] [place] [address] PCP - General Sports Medicine 11/15/24
--- OUTSIDE RECORDS SUMMARY | 2025-01-19 03:10 | XMS_ITS | Encounter Summary ---
Author Organization [facility] Address [address] [place] [address] Care Team Providers Care Financial Assistance Advisor Name Role Phone All Klein MD Primary Care Provider [phone] Robert Soria MD Unavailable [phone] Encounter Details Date Type Department Care Team (Late st Contact Info) Description 11/26/2024 Results Follow-Up [facility] - [address] [place] [phone] Shivani Carlos MA EMG 2 EXTREMITY Social History Tobacco Use Types Packs/Day Years Used Date Smoking Tobacco: Never Smokeless Tobacco: Never Sex and Gender Information Value Date Recorded Sex Assigned at Not on file Legal Sex Male 8:36 AM CDT Gender Identity Not on file Sexual Orientation Not on file documented as of this encounter Plan of Treatment Not on file documented as of this encounter Visit Diagnoses Not on filedocumented in this encounter Care Teams Financial Assistance Advisor Relationship Specialty Start Date End Date All Klein MD [address] [place] [id number] PCP - General 10/09/24 Robert Soria MD [address] [place] [address] [place] [id number] Neurology 10/09/24 documented as of this encounter
--- OUTSIDE RECORDS SUMMARY | 2025-01-19 03:10 | XMS_ITS | Encounter Summary ---
Author Organization [facility] Address [address] [place] [address] Care Team Providers Care Early Childhood Teacher Assistant Name Role Phone All Klein MD Primary Care Provider [phone] Robert Soria MD Unavailable [phone] Encounter Details Date Type Department Care Team (Late st Contact Info) Description 11/19/2024 Results Follow-Up [facility] - [address] [place] [phone] Shivani Carlos MA [facility] Social History Tobacco Use Types Packs/Day Years [...] on filedocumented in this encounter Care Teams Early Childhood Teacher Assistant Relationship Specialty Start Date End Date All Klein MD [address] [place] [id number] PCP - General 10/09/24 Robert Soria MD [address] [facility] [address] [place] [address] Neurology 10/09/24 documented as of this encounter
--- OUTSIDE RECORDS SUMMARY | 2025-01-19 03:10 | XMS_ITS | Clinical Summary ---
Author Organization [facility] Address [address] [place] [address] Care Team Providers Care Register Clerk Name Role Phone All Klein MD Primary Care Provider [phone] Robert Soria MD Unavailable [phone] Allergies Active Allergy Reactions Criticality Noted Date Comments Cephalexin Rash 01/30/2023 Tolerated Zosyn, Cefepime, Ceftriaxone and Cefazolin prior to switching to oral Keflex x2 days prior to developing diffuse maculopapular rash though. Medications insulin lispro (HUMALOG; ADMELOG) 100 unit/mL SubQ pen ADMINISTER UP TO 18 UNITS UNDER THE SKIN THREE TIMES DAILY WITH MEALS DIRECTED NEEDED 5 Active ULTRAFINE III PEN NEEDLE MINI 31 gauge x 3/16 needle REMOVE THE 2 COVERS ON INSULIN PEN NEEDLE BEFORE ADMINISTERING INSULIN DOSE. INJECTION OF INSULIN 1-2 TIMES PER DAY 5 Active LANTUS SOLOSTAR U-100 INSULIN 100 unit/mL (3 mL) SubQ pen INJECT 25 UNITS SUBCUTANEOUS BEFORE BEDTIME. Active rosuvastatin (CRESTOR) 10 mg oral tablet Take 1 tablet (10 mg) by mouth Daily. 5 Active Active Problems No known active problems Encounters Date Type Department Care Team Description 01/09/2025 Results Follow-Up [facility] - [address] [place] [address] Shivani Carlos MA VITAMIN B12 ([facility]), VITAMIN D, 25-HYDROXY ([facility]), ANTI-SCL-70 ANTIBODY (RDL) ([facility]), Additional followed-up results: 9 12/24/2024 11:00 AM CDT Office Visit [address] [place] [phone] Robert Soria MD Lumbosacral plexopathy (Primary Dx) 11/28/2024 1:00 PM CDT Ancillary Procedure [address] [place] [address] Lumbosacral plexopathy 11/27/2024 Results Follow-Up [address] [place] [phone] Shivani Carlos MA SCANNED LAB, [facility] 11/27/2024 Order-Scan [address] [place] [phone] Robert Soria MD 11/26/2024 Results Follow-Up [address] [place] [phone] Shivani Carlos MA EMG 2 EXTREMITY 11/22/2024 10:45 AM CDT Ancillary Procedure [address] [place] [address] Lumbosacral plexopathy 11/20/2024 Order-Scan [address] [place] [phone] Robert Soria MD 11/19/2024 Order-Scan [address] [place] [phone] Robert Soria MD 11/19/2024 Results Follow-Up [facility] - [address] [place] [address] Shivani Carlos MA SCANNED LAB, [facility] 11/16/2024 Order-Scan [facility] [address] [place] [address] Robert Soria MD 11/15/2024 10:30 AM CDT Office Visit [address] [place] [phone] Robert Soria MD Lumbosacral plexopathy (Primary Dx) from Last 3 Months Social History Tobacco Use Types Packs/Day Years Used Date Smoking Tobacco: Never Smokeless Tobacco: Never Tobacco Cessation:Counseling Given: Not Answered Sex and Gender Information Value Date Recorded Sex Assigned at Not on file Legal Sex Male 8:36 AM CDT Gender Identity Not on file Sexual Orientation Not on file Last Filed Vital Signs Vital Sign Reading Time Taken Comments Blood Pressure - - Pulse - - Temperature - - Respiratory Rate - - Oxygen Saturation - - Inhaled Oxygen Concentration - - Weight 77.1 kg (170 lb) 11/15/2024 10:26 AM CDT Height 182.9 cm (6') 11/15/2024 10:26 AM CDT Body Mass Index 23.06 11/15/2024 10:26 AM CDT Plan of Treatment Health Maintenance Due Date Last Done Comments Colonoscopy 1965 Eye Exam 1965 HgbA1C 1965 Microalbumin Q12 Month 1965 Anxiety Screening (BELINDA-2) 1966 Depression Assessment (PHQ-2) 1966 Adult Tetanus Booster 1984 Pneumococcal 50+ Years (1 of 2 - PCV) 1984 Yearly Review of HCD 09/09/2015 Zoster Vaccine (1 of 2) 09/09/2015 COVID-19 Vaccine (2 - 2024-2 6 season) 2024 03/18/2023 Influenza Vaccine (#1) 2024 Creatinine 08/23/2025 08/23/2024 RSV Vaccines (1 - 1-dose 75+ series) 2040 Hepatitis C Screening Completed 12/24/2024 , 11/22/2023 Meningococcal B Vaccine Aged Out No l onger eligible based on patient's age to complete this topic Procedures Procedure Name Priority Date/Time Associated Diagnosis Comments HIV P24 ANTIGEN/ANTIBODY W/REFLEX TO CONFIRM ([facility]) Routine 12/24/2024 10:43 AM CDT Lumbosacral plexopathy HEP B CORE ANTIBODY, TOTAL ([facility]) Routine 12/24/2024 10:43 AM CDT Lumbosacral plexopathy HBSAG SCREEN ([facility]) Routine 10:43 AM CDT Lumbosacral plexopathy HCV ANTIBODY ([facility]) Routine 10:43 AM CDT Lumbosacral plexopathy SJOGREN'S ANTI-SS-A/-SS-B ([facility]) Routine 12/24/2024 10:43 AM CDT Lumbosacral plexopathy SEDIMENTATION RATE [...] 12/24/2024 10:43 AM CDT Lumbosacral plexopathy VITAMIN D, 25-HYDROXY ([facility]) Routine 12/24/2024 10:43 AM CDT Lumbosacral plexopathy VITAMIN B12 ([facility]) Routine 12/24/2024 10:43 AM CDT Lumbosacral plexopathy MRI LUMBAR PLEXUS W&WO Routine 1:35 PM CDT Lumbosacral plexopathy EMG 2 EXTREMITY Routine 11/22/2024 11:18 AM CDT Lumbosacral plexopathy SCANNED [facility] Routine 11/15/2024 4:34 PM CDT SCANNED LAB Routine 11/15/2024 4:11 PM CDT SCANNED LAB Routine 11/15/2024 8:51 AM CDT SCANNED LAB Routine 11/15/2024 8:36 AM CDT SCANNED LAB Routine 11/15/2024 8:11 AM CDT SCANNED LAB Routine 11/15/2024 8:03 AM CDT from Last 3 Months Results * HIV P24 ANTIGEN/ANTIBODY W/REFLEX TO CONFIRM ([facility]) (12/24/2024 10:43 AM CDT) Pathologist [facility] HIV Antibody/p24 Antigen Screen ([facility]) Non Reactive Non Reactive [facility] 2 Comment: HIV-1/HIV-2 antibodies and HIV-1 p24 antigen were NOT detected. There is no laboratory evidence of HIV infection. HIV Negative Blood 12/24/2024 10:4 3 AM CDT 12/23/2024 11:00 PM CDT Narrative [facility] 2 - 01/08/2025 4:08 PM CDT Performed at: [address] [place] [id number] Prenatal Nurse: John Rockwell MD, Phone: [phone] Robert Soria MD [facility] ORDERABLES Final Resul t [facility] 2 * ANTIPHOSPHOLIPID ANTIBODY TO REPRODUCTIVE LAB INC [...] CDT Performed at: 01 - [facility] of [address], [place], [place] [id number] Prenatal Nurse: Salomon Girard [facility], Phone: [phone] Performed at: 02 - [facility] [address] [id number] Prenatal Nurse: John Rocwkell MD, Phone: [phone] Robert Soria MD [facility] ORDERABLES Final Resul t [facility] 2 [facility] 1 * (ABNORMAL) ANCA PANEL ([facility]) (12/24/2024 10:43 [...] up testing of positive sera with both NC-3 and MPO-ANCA enzyme immunoassays. As many as [...] 01/08/2025 4:08 PM CDT Performed at: [address] [id number] Prenatal Nurse: Vipul Olmos MD, Phone: [phone] Robert Soria MD [facility] ORDERABLES Final Resul t Performing Organization Address [facility] [[email or web address]] de Phone Number [facility] 3 * HCV ANTIBODY ([facility]) (12/24/2024 10:43 AM CDT) Pathologist [facility] Hepatitis C Virus Antibody ([facility]) Non Reactive [...] 01/08/2025 4:08 PM CDT Performed at: [address] [id number] Prenatal Nurse: John Rockwell MD, Phone: [phone] Robert Soria MD [facility] ORDERABLES Final Resul t Performing Organization Address City/[facility]/ZIP Co de Phone Number [facility] 2 * (ABNORMAL) VITAMIN D, 25-HYDROXY ([facility]) (12/24/2024 10:43 AM CDT) Vitamin D,25 Hydroxy ([facility]) 23.1(L) 30.0 - 100.0 ng/mL [facility] 2 Comment: Vitamin D deficiency has been defined by the [place] of Medicine and an Endocrine Society practice guideline as a level of serum 25-OH vitamin D less than 20 ng/mL (1,2). The Endocrine Society went on to further define vitamin D insufficiency as a level between 21 and 29 ng/mL (2). 1. IOM ([place] of Medicine). 2010. Dietary reference intakes for calcium and D. [place]: The National Academies Press. 2. Victoria MF, Rasheed [place], Son ALFONSO, et al. Evaluation, treatment, and prevention of vitamin D deficiency: an Endocrine Society clinical practice guideline. JCEM. 2010; 96(7):1911-30. Blood 12/24/2024 10:4 3 AM CDT 12/23/2024 11:00 PM CDT Narrative [facility] 2 - 01/08/2025 4:08 PM CDT Performed at: 02 - [facility] [address] [id number] Prenatal Nurse: oJhn Rockwell MD, Phone: [phone] Robert Soria MD [facility] ORDERABLES Final Resul t [facility] 2 * SJOGREN'S ANTI-SS-A/-SS-B ([facility]) (12/24/2024 10:43 AM CDT) Sjogren's Anti-SS-A ([facility]) <0.2 0.0 - 0.9 AI [facility] 4 Sjogren's Anti-SS-B ([facility]) <0.2 0.0 - 0.9 AI [facility] 4 Blood 12/24/2024 10:4 3 AM CDT 12/23/2024 11:00 PM CDT Narrative [facility] 4 - 01/08/2025 4:08 PM CDT Performed at: - [facility] [place] [address] [id number] Prenatal Nurse: John Rockwell MD, Phone: [phone] Robert Soria MD [facility] ORDERABLES Final Resul t [facility] 4 * HEP B CORE ANTIBODY, TOTAL ([facility]) (12/24/2024 10:43 AM CDT) Hepatits B Core Total Antibody ([facility]) Negative Negative [facility] 2 Blood 12/24/2024 10:4 3 AM CDT 12/23/2024 11:00 PM CDT Narrative [facility] 2 - 01/08/2025 4:08 PM CDT Performed at: [facility] [address] [id number] Prenatal Nurse: John Rockwell MD, Phone: [phone] Robert Soria MD [facility] ORDERABLES Final Resul t Performing Organization Address [facility] Co de Phone Number [facility] 2 * C-REACTIVE PROTEIN, QUANT ([facility]) (12/24/2024 10:43 AM CDT) C-Reactive Protein Quantitave ([facility]) 1 0 - 10 mg/L [facility] 2 Blood 12/24/2024 10:4 3 AM CDT 12/23/2024 11:00 PM CDT Narrative [facility] 2 - 01/08/2025 4:08 PM CDT Performed at: [facility] [address] [id number] Prenatal Nurse: John Rockwell MD, Phone: [phone] Robert Soria MD [facility] ORDERABLES Final Resul t Performing Organization Address City/[facility]/ZIP Co de Phone Number [facility] 2 * HBSAG SCREEN ([facility]) (12/24/2024 10:43 AM CDT) [facility] Hepatitis B Surface Antigen Screen ([facility]) Negative Negative [facility] 2 Blood 12/24/2024 10:4 3 AM CDT 12/23/2024 11:00 PM CDT Narrative [facility] 2 - 01/08/2025 4:08 PM CDT Performed at: [address] [place] [id number] Prenatal Nurse: John Rockwell MD, Phone: [phone] Robert Soria MD [facility] ORDERABLES Final Resul t Performing Organization Address City/[facility] [[email or web address]] de Phone Number [facility] 2 * SEDIMENTATION RATE - WESTERGREN ([facility]) (12/24/2024 10:43 AM CDT) [facility] Sed Rate- Westergren ([facility]) 13 0 - 30 mm/hr [facility] 2 Blood 12/24/2024 10:4 3 AM CDT 12/23/2024 11:00 PM CDT Narrative [facility] 2 - 01/08/2025 4:08 PM CDT Performed at: [address] [place] [id number] Prenatal Nurse: John Rockwell MD, Phone: [phone] Robert Soria MD [facility] ORDERABLES Final Resul t Performing Organization Address City/[email or web address]] de Phone Number [facility] 2 * VITAMIN B12 ([facility]) (12/24/2024 10:43 AM CDT) [facility] Vitamin B12 ([facility]) 540 232 - 1,245 pg/mL [facility] 2 Blood 12/24/2024 10:4 3 AM CDT 12/23/2024 11:00 PM CDT Narrative [facility] 2 - 01/08/2025 4:08 PM CDT Performed at: [address] [place] [id number] Prenatal Nurse: John Rockwell MD, Phone: [phone] Robert Soria MD [facility] ORDERABLES Final Resul t Performing Organization Address [facility] Co de Phone Number [facility] 2 * ANTI-SCL-70 ANTIBODY (RDL) ([facility]) (12/24/2024 10:43 AM CDT) Anti-Scl-70 Antibody (RDL) ([facility]) <20 <20 Units [facility] 5 Blood 12/24/2024 10:4 3 AM CDT 12/23/2024 11:00 PM CDT Narrative [facility] 5 - 01/08/2025 4:08 PM CDT Performed at: [facility] [address] [place] [id number] Prenatal Nurse: Domingo Townsend MD, Phone: [phone] Robert Soria MD [facility] ORDERABLES Final Resul t Performing Organization Address [facility] [[email or web address]] de Phone Number [facility] 5 * MRI LUMBAR PLEXUS W&WO (11/28/2024 1:35 PM CDT) Anatomical Region Laterality Modality ABD/Pelvis Magnetic Resonan ce 11/28/2024 2:44 PM CDT Impressions 11/28/2024 2:47 PM CDT No evidence of intrinsic or extrinsic abnormality along the lumbosacral plexus. Narrative 11/28/2024 2:47 PM CDT Examination: MRI lumbar plexus with and without contrast. 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 TECHNIQUE: MR imaging of the lumbar plexus performed with and without contrast. 7 cc Gadavist administered intravenously. FINDINGS: There is nonspecific marrow heterogeneity. No focal aggressive marrow lesion identified. There is no adenopathy identified. No paraspinous soft tissue mass. The elements of the lumbosacral plexus are normal in size and signal. Procedure Note Quang Cordova MD - 11/28/2024 Examination: MRI lumbar plexus with and without contrast. 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 TECHNIQUE: MR imaging of the lumbar plexus performed with and without contrast. 7 ccGadavist administered intravenously. FINDINGS: There is nonspecific marrow heterogeneity. No focal aggressive marrowlesion identified. There is no adenopathy identified. No paraspinous soft tissue mass. The elements of the lumbosacral plexus are normal in size and signal. IMPRESSION No evidence of intrinsic or extrinsic abnormality along the lumbosacralplexus. us Robert Soria MD MRI ORDERABLE Final Result * EMG 2 EXTREMITY (11/22/2024 11:18 AM CDT) Narrative Robert Soria MD - 11/22/2024 12:37 PM CDT Table formatting from the original result was not included. Images from the original result were not included. [facility] [address] [place] [address] Opt 2 Electromyography (EMG) Study Test Date: 11/22/2024 Patient: Magno Bryant Electromyographer: Robert Soria MD : 1965 [employer] Cutting Machine Operator: Malia Sex: Male Ref Phys: Robert Soria MD Location: [place] Patient Symptoms/Indication for EMG: Patient is a 59 year-old diabetic type 2 - who presents with left lower extremity weakness after suffering a deep left lateral thigh infection requiring 2 debridement surgeries in 2022. Testing was performed by the [facility]'s EMG equipment and supplies. Temp: RLE 33.5 C LLE 33.8 C EMG & NCV Findings: Evaluation of the left peroneal motor and the right peroneal motor nerves showed no response (Ankle), no response (B Knee), and no response (Knee). The left peroneal (TA) motor nerve showed reduced amplitude (1.0 mV) and decreased conduction velocity (B Knee-Knee, 39 m/s). The left tibial motor nerve showed reduced amplitude (2.2 mV) and decreased conduction velocity (Knee-Ankle, 38 m/s). The right tibial motor nerve showed reduced amplitude (2.0 mV). The right and left superficial peroneal sensory nerve showed no response (AntLat Mall). The left sural sensory and the right sural sensory nerves showed no response (Calf). All remaining nerves (as indicated in the following tables) were within normal limits. F Wave studies indicate that the left tibial F wave has prolonged latency (56.19 ms). All remaining F Wave latencies were within normal limits. Needle evaluation of the right anterior tibialis, the right peroneus longus, the right vastus medialis, the left anterior tibialis, the left peroneus longus, the left vastus medialis, and the left tensor fascia emil muscles showed increased 2+ motor unit amplitude, increased motor unit duration, and moderate reduced recruitment. The right posterior tibialis and the left gluteus medius muscles showed increased 1+ motor unit amplitude, increased motor unit duration, and mild reduced recruitment. The right tensor fascia emil muscle showed increased 1+ motor unit amplitude, increased motor unit duration, and moderate reduced recruitment. All remaining muscles were normal as shown in the table. Conclusion: Extensive electrodiagnostic evaluation of bilateral lower extremities is compared to EMG at [facility] on 10/01/2024. While most of the compatible nerve conduction study similar on extension of conduction study on lateral sides of needle electrode examination into muscles above the knee as well as on the contralateral side shows the following martin findings: 1. Generalized sensorimotor polyneuropathy, electrically severe in degree, length dependent in distribution, similar to what was previously noted. 2. A complicated pattern of lumbosacral radiculopathies affecting the left L4 and L5 nerve roots. However, some sparing of the tibialis posterior, and involvement of the left quadriceps muscle points towards fascicular involvement of this radiculopathy. Alternatively, given the severe polyneuropathy above and fascicular involvement of the femoral and peroneal > tibial nerves could point towards a lumbosacral plexopathy. Clinical/radiographical correlation would be required for definite diagnosis. Electronically Signed By: Robert Soria MD Neurologist, [facility] 12:37 PM 11/22/2024 Nerve Conduction Studies Anti Sensory Summary Table Stim Site NR Peak (ms) Norm Peak (ms) O-P Amp ( V) Norm O-P Amp Site1 Site2 Dist (cm) Norm Jerry (m/s) Left Sup Peron Anti Sensory (Ant Lat Mall) AntLat Mall NR <3.8 >5 Right Sup Peron Anti Sensory (Ant Lat Mall) AntLat Mall NR <3.8 >5 Left Sural Anti Sensory (Lat Mall) Calf NR <4.5 >7 Calf Lat Mall 12.0 Right Sural Anti Sensory (Lat Mall) Calf NR <4.5 >7 Calf Lat Mall 12.0 Motor Summary Table Stim Site NR Onset (ms) Norm Onset (ms) O-P Amp (mV) Norm O-P Amp Site1 Site2 Dist (cm) Jerry (m/s) Norm Jerry (m/s) Left Peroneal Motor (Ext Dig Brev) Ankle NR <7.0 >2 Ankle B Knee 0.0 >40 B Knee NR Knee Ankle 0.0 >40 Knee NR Knee B Knee 0.0 >40 Right Peroneal Motor (Ext Dig Brev) Ankle NR <7.0 >2 Ankle B Knee 0.0 >40 B Knee NR Knee Ankle 0.0 >40 Knee NR Knee B Knee 0.0 >40 Left Peroneal TA Motor (Tib Ant) B Knee 2.7 <6.7 1.0 >2 B Knee Knee 9.0 39 >40. Knee 5.0 1.0 Right Peroneal TA Motor (Tib Ant) B Knee 5.2 <6.7 3.8 >2 B Knee Knee 9.0 43 >40. Knee 7.3 3.5 Left Tibial Motor (Abd Buck Brev) Ankle 4.7 <7.3 2.2 >4 Knee Ankle 46.0 38 >40 Knee 16.7 1.4 Right Tibial Motor (Abd Buck Brev) Ankle 4.0 <7.3 2.0 >4 Knee Ankle 45.0 43 >40 Knee 14.5 1.0 F Wave Studies NR F-Lat (ms) Lat Norm (ms) L-R F-Lat (ms) Left Tibial (Mrkrs) (Abd Hallucis) 56.19 <56 0.47 Right Tibial (Mrkrs) (Abd Hallucis) 55.72 <56 0.47 EMG Side Muscle Nerve Root Ins Act Fibs/Pwaves Amp Dur Poly Recrt Fasics Comment Right AntTibialis Dp Br Peron L4-5 Nml 0 Inc2+ Incr Nml Reduced-Mod 0 Right PostTibialis Tibial L5, S1 Nml 0 inc1+ Incr Nml Reduced-mild 0 Right Peroneus Long Sup Br Peron L5-S1 Nml 0 Inc2+ Incr Nml Reduced-Mod 0 Right Med Gastroc Tibial S1-2 Nml 0 Nml Nml Nml Nml 0 Right VastusMed Femoral L2-4 Nml 0 Inc2+ Incr Nml Reduced-Mod 0 Right BicepsFemS Sciatic L5-S1 Nml 0 Nml Nml Nml Nml 0 Right GluteusMed SupGluteal L5-S1 Nml 0 Nml Nml Nml Nml 0 Right GluteusMax InfGluteal L5-S2 Nml 0 Nml Nml Nml Nml 0 Right TensorFascLat SupGluteal L4-5, S1 Nml 0 inc1+ Incr Nml Reduced-Mod 0 Left AntTibialis Dp Br Peron L4-5 Nml 0 Inc2+ Incr Nml Reduced-Mod 0 Left PostTibialis Tibial L5, S1 Nml 0 Nml Nml Nml Nml 0 Left Peroneus Long Sup Br Peron L5-S1 Nml 0 Inc2+ Incr Nml Reduced-Mod 0 Left VastusMed Femoral L2-4 Nml 0 Inc2+ Incr Nml Reduced-Mod 0 Left Med Gastroc Tibial S1-2 Nml 0 Nml Nml Nml Nml 0 Left BicepsFemS Sciatic L5-S1 Nml 0 Nml Nml Nml Nml 0 Left GluteusMed SupGluteal L5-S1 Nml 0 inc1+ Incr Nml Reduced-mild 0 Left GluteusMax InfGluteal L5-S2 Nml 0 Nml Nml Nml Nml 0 Left TensorFascLat SupGluteal L4-5, S1 Nml 0 Inc2+ Incr Nml Reduced-Mod 0 Waveforms: Robert Soria MD EMG ORDERABLE Final Result * [facility] (11/15/2024 4:34 PM CDT) Only the most recent of6 resultswithin the time period is included. Robert Soria MD MICROBIOLOGY ORDERABLE Final R esult from Last 3 Mon[address] Insurance [facility] Care Teams Register Clerk Relationship Specialty Start Date End Date All Klein MD [address] [place] [address] PCP - General 10/09/24 Robert Soria MD [address] [facility] [address] [place] [address] Neurology 10/09/24
--- OUTSIDE RECORDS SUMMARY | 2025-01-19 03:10 | XMS_ITS | Encounter Summary ---
Author Organization [facility] Address [address] [place] [address] Care Team Providers Care Rn Transplant Name Role Phone All Klein MD Primary Care Provider [phone] Robert Soria MD Unavailable [phone] Reason for Visit * Reason Onset Date Comments Test results 01/09/2025 Encounter Details Date Type Department Care Team (Late st Contact Info) Description 01/09/2025 Results Follow-Up [facility] - [address] [place] [id number] Shivani Carlos MA VITAMIN B12 ([facility]), VITAMIN D, 25-HYDROXY ([facility]), ANTI-SCL-70 ANTIBODY (RDL) ([facility]), Additional followed-up results: 9 Social History Tobacco Use Types Packs/Day Years Used Date Smoking Tobacco: Never Smokeless Tobacco: Never Sex and Gender Information Value Date Recorded Sex Assigned at Not on file Legal Sex Male 8:36 AM CDT Gender Identity Not on file Sexual Orientation Not on file documented as of this encounter Miscellaneous Notes * Telephone Encounter - Shivani Carlos MA - 01/09/2025 10:04 AM CDT Went over the phone with pt, he verbalizes understanding. He is not taking any Vit D supplement so he will start this. Also he never got a call from Rheumatology, Referral sent to [facility]. * Telephone Encounter - Shivani Carlos MA - 01/09/2025 10:04 AM CDT ----- Message from Robert Soria sent at 01/08/2025 5:22 PM CDT ----- Please make sure that he has vitamin D replacement instructions: 2 to 5000 units daily within aboutwhat ever he was taking before. Please also make sure that he has rheumatology referral in place. Otherwise you should place a new referral. ----- Message ----- From: Inf, Results In Sent: 01/08/2025 4:08 PM CDT To: Robert Soria MD * Telephone Encounter - Shivani Carlos MA - 01/09/2025 8:37 AM CDT I left a voicemail asking to return the call. * Telephone Encounter - Shivani Carlos MA - 01/09/2025 8:37 AM CDT ----- Message from Robert Soria sent at 01/08/2025 5:22 PM CDT ----- Please make sure that he has vitamin D replacement instructions: 2 to 5000 units daily within aboutwhat ever he was taking before. Please also make sure that he has rheumatology referral in place. Otherwise you should place a new referral. ----- Message ----- From: Inf, Results In Sent: 01/08/2025 4:08 PM CDT To: Robert Soria MD documented in this encounter Plan of Treatment Not on file documented as of this encounter Visit Diagnoses Not on filedocumented in this encounter Care Teams Rn Transplant Relationship Specialty Start Date End Date All Klein MD [address] [place] [address] PCP - General 10/09/24 Robert Soria MD [address] [facility] [address] [place] [address] Neurology 10/09/24 documented as of this encounter
--- OUTSIDE RECORDS SUMMARY | 2025-01-19 03:10 | XMS_ITS | Encounter Summary ---
Author Organization [facility] Address [address] [place] [id number] Care Team Providers Care Die Casting Machine Setter Name Role Phone All Klein MD Primary Care Provider [phone] Robert Soria MD Unavailable [phone] Encounter Details Date Type Department Care Team (Late st Contact Info) Description 11/27/2024 Results Follow-Up [facility] - [address] [place] [phone] Shivani Carlos MA [facility], [facility] [...] on filedocumented in this encounter Care Teams Die Casting Machine Setter Relationship Specialty Start Date End Date All Klein MD [address] [place] [id number] PCP - General 10/09/24 Robert Soria MD [address] [facility] [address] [place] [address] Neurology 10/09/24 documented as of this encounter
--- OUTSIDE RECORDS SUMMARY | 2025-01-19 03:10 | XMS_ITS | Clinical Summary ---
Author Organization [facility] Address [address] [place] [address] Care Team Providers Care Nipping Machine Operator Name Role Phone All Cool MD Primary Care Provider [phone] Allergies Active Allergy Reactions Criticality Noted Date Comments Cephalexin Rash 01/30/2023 Tolerated Zosyn, Cefepime, Ceftriaxone and Cefazolin prior to switching to oral Keflex x2 days prior to developing diffuse maculopapular rash though. Medications Blood-Glucose Meter (Accu-Chek Guide Me Glucose Mtr)Indications:Di abetes mellitus, new onset (HC) Dispense meter, test strips, lancets covered by pt ins. E11.65 NIDDM type II, uncontrolled - Test 3 times/day, Reason: New diabetes 1 Each 3 3:22 PM CDT 01/27/20 Active Blood-Glucose MeterIndications:D iabetes mellitus, new onset (HC) test 4 times daily 1 Each 02/01/20 Active lancetsIndications :Diabetes mellitus, new onset (HC) Dispense item covered by pt ins. E11.65 NIDDM type II, uncontrolled - Test 4 times/day. Reason: New diabetes 100 Each 02/01/20 Active blood sugar diagnostic stripIndications:D iabetes mellitus, new onset (HC) Dispense item covered by pt ins. E11.65 NIDDM type II, uncontrolled - Test 4 times/day. Reason: New diabetes 100 Each 02/01/20 Active WalkerIndications: Abscess of left leg Walker with front wheels for home use. 1 Each 02/01/20 Active Insulin [place], Disposable, (bd insulin pen needle uf mini) 31 gauge x 06/24Indications:D iabetes mellitus, new onset (HC) Remove the 2 covers on the insulin pen needle before administering insulin dose. Injection insulin 1-2 times a day. 200 Each 3 09/22/19 24 Active FreeStyle Suzi 3 Plus Sensor for continuous blood glucose monitor (CGM)Indications:T ype 2 diabetes mellitus without complication, with long-term current use of insulin (HC) To be used to read blood sugars, follow customer support professional directions. 6 Each 3 02/09/20 24 Active insulin lispro (U-100) 100 unit/mLIndications :Diabetes mellitus, new onset (HC) ADMINISTER UP TO 18 UNITS UNDER THE SKIN THREE TIMES DAILY WITH MEALS DIRECTED NEEDED 60 mL 07/04/19 25 Active Lantus Solostar U-100 Insulin 100 unit/mL (3 mL) penIndications:Radha betes mellitus, new onset (HC) Inject 25 units subcutaneous before bedtime. Product desired: LANTUS SOLOSTAR, 60 mL 2 08/24/19 25 Active rosuvastatin 10 mg tabletIndications: Candidate for statin therapy due to risk of future cardiovascular event Take 1 Tablet (10 mg) by mouth at bedtime. 90 Tablet 3 08/24/19 25 Active Active Problems Problem Noted Date Diagnosed Date Candidate for statin therapy due to risk of future cardiovascular event 09/24/2023 Overview (09/24/2023): September 2023: Started Rosuvastatin (Crestor) 10mg. S/P Irrigation and debrideme nt of the left thigh abscess 01/24/23 & 01/28/[address] Chavez 02/15/2023 Compression fracture of L1 vertebra with routine healing 02/15/2023 Overview (02/15/2023): Feb 2023: Found on x-ray, possibly chronic. Type 2 diabetes mellitus wit hout complication, with long-term current use of insulin 01/22/2023 Overview (02/15/2023): Jan 2023: diagnosis made at time of Left thigh infection, Hemoglobin A1c over 13 at [facility] , started on both lantus and humalog sliding scale in Hospital. Abscess of leg, left 01/22/2023 Encounters Date Type Department Care Team Description 01/02/2025 Orders Only [facility] Scanner 1 scan: (1-Ord) [facility], 01/02/2025 12/25/2024 11:10 AM CDT Office Visit [facility] [address] [place] [address] All Cool MD Follow Up (Follow-up LEFT leg weakness/Follow-up from Neurology appointment/Discuss Disability Parking Certificate ) 12/25/2024 Travel 12/04/2024 Telephone [facility] [address] [place] [address] All Cool MD Form 11/15/2024 Telephone [facility] [address] [place] [address] All Cool MD LOS (IMAGING ) 10/29/2024 Telephone [facility] [address] [place] [address] All Cool MD Follow Up (returning phone call) 10/23/2024 10:15 AM CDT Ancillary Procedure [facility] [address] [place] [address] 10/23/2024 Travel from Last 3 Months Immunizations Immunization Administration Dates Next Due COVID-19 VACCINE SPIKEVAX (M ODERNA 50MCG/0.5ML) 12YO+ PFS 03/18/2023 Social History Tobacco Use Types Packs/Day Years Used Date Smoking Tobacco: Never Passive Smoke Exposure: Never Smokeless Tobacco: Never Alcohol Use Standard Drinks/Week Comments Never 0 (1 standard drink = 0.6 oz pur e alcohol) PHQ-2 Answer Date Recorded PHQ-2 TOTAL SCORE 0 05/19/2023 Social Connections Answer Date Recorded Do you often feel lonely or isolated from those around you? 0 04/30/2024 Financial Resource Strain Answer Date R ecorded Difficulty of Paying Living Expenses 1 03/23/2024 Difficulty of Paying Living Expenses 2 03/23/2024 Food Insecurity Answer Date Recorded Do you worry your food will run out before you are able to buy more? 1 04/30/2024 Transportation Needs Answer Date Record ed Does lack of transportation keep you from medica l appointments? 1 04/30/2024 Does lack of transportation keep you from work, meetings or getting things that you need? 1 04/30/2024 Housing Stability Answer Date Recorded What is your housing situation today? 2 04/30/2024 Utilities Answer Date Recorded Do you have trouble paying f or utilities (for example, heat, electricity, water, phone)? 2 04/30/2024 Sex and Gender Information Value Date Recorded Sex Assigned at Not on file Legal Sex Male 5:50 AM CAFETERIA CASHIER Gender Identity Not on file Sexual Orientation Not on file Obstetrics History Last Filed Vital Signs Vital Sign Reading Time Taken Comments Blood Pressure 111/74 12/25/2024 11:18 AM CDT Pulse 82 12/25/2024 11:18 AM CDT Temperature 36.3 C (97.4 F) 06/20/2023 11:12 AM CDT Respiratory Rate 16 11/02/2023 10:35 AM CDT Oxygen Saturation 97% 12/25/2024 11:18 AM CDT Inhaled Oxygen Concentration - - Weight 83 kg (182 lb 14.4 oz) 12/25/2024 11:18 A M CDT Height 177.8 cm (5' 10) 03/23/2024 7:45 AM CAFETERIA CASHIER Body Mass Index 26.24 03/23/2024 7:45 AM CAFETERIA CASHIER Plan of Treatment Upcoming Encounters Date Type Department Care Team (Late st Contact Info) Description 02/25/2025 9:55 AM CAFETERIA CASHIER Office Visit [facility] [address] [place] [address] All Cool MD [address] [place] [address] Health Maintenance Due Date Last Done Comments Tetanus booster 1976 HIV for age 15-65 1980 Hepatitis B series for 19+ ( 1 of 3 - 19+ 3-dose series) 1984 Pneumococcal series for age 50+ (1 of 2 - PCV) 1984 Zoster (shingles) series for age 50+ (1 of 2) 09/09/2015 Depression screening for age 12+ 05/19/2024 05/19/2023, 02/22/2023, 02/15/2023, Additional history exists COVID-19 vaccine series (2024- season) 2024 03/18/2023, 10/29/2020 Influenza Vaccine (#1) 2024 BMI (ht and wt on same day) for age 18+ 03/23/2025 03/23/2024, 02/14/2023 Lipids for age 45-75 08/23/2029 08/23/2024, 11/22/2023, 05/19/2023 Colonoscopy through age 75 11/01/203311/01, 11/02/2023, 11/02/2023 RSV vaccine for adults or (1 - 1-dose 75+ series) 2040 Hepatitis C screening for ag e 18-79 Completed 11/22/2023 Medical Devices Implanted Type [facility] Device Identifier Shelf Expiration Date Model / Serial / Lot Bone Matrix 18cc Cerament Synth - [id number] Implanted:Qty: 1 on 01/28/2023 by Perfecto Chavez MD at [facility] Left: Leg [employer] 03/05/2025 [id number] / / [id number] Description:CHECKED JI Procedures Procedure Name Priority Date/Time Associated Diagnosis Comments SCAN-EYE EXAM 01/02/2025 12:00 AM CDT MR SPINE LUMBAR WO Routine 10/23/2024 10 :58 AM CDT Weakness of left leg Lumbar myelopathy (HC) Chronic bilateral low back pain with left-sided sciatica LIPID PANEL W REFLEX MEASURED LDL Routine 08/23/2024 10:17 AM CDT Candidate for statin therapy due to risk of future cardiovascular event ANTI HCV Routine 11/22/2023 7:57 AM CDT Need for hepatitis C screening test COLONOSCOPY 11/02/2023 9:46 AM CDT from Last 3 Months or Most Recently Relevant to Health Maintenance Results * SCAN-EYE EXAM (01/02/2025 12:00 AM CDT) us Scanner OTHER Final Result * MR SPINE LUMBAR WO (10/23/2024 10:58 AM CDT) Anatomical Region Laterality Modality Spine, LUMBAR SPINE Magnetic Res onance 10/23/2024 3:30 PM CDT Impressions 10/23/2024 3:30 PM CDT 1. Trace degenerative anterolisthesis of L5 on S1. Associated bilateral pars defects. 2. Otherwise normal alignment. No acute fractures 3. Lumbar spondylosis 4. At L5-S1, unroofed posterior disc bulge. No narrowing of the spinal canal. No neural foraminal narrowing. 5. No spinal canal or neural foraminal narrowing at the remaining levels Dictated by Figueroa Casper MD @ 10/23/2024 3:30:56 PM (Electronically Signed) Narrative 10/23/2024 3:30 PM CDT For Patients: As a result of the Cures Act, medical imaging exams and procedure reports are released immediately into your electronic medical record. You may view this report before your referring provider. If you have questions, please contact your health care provider. INDICATION: Left leg weakness. Low back pain. COMPARISON: 02/14/2023. TECHNIQUE: Sagittal T1, T2, and STIR sequences. Axial T1 and T2 weighted sequences. FINDINGS: Trace degenerative anterolisthesis of L5 on S1 measures approximately 4 mm. Associated bilateral pars defects. Otherwise, normal alignment. No acute fractures. Chronic mild loss of height and anterior wedging of the T12 and L1 vertebral bodies. No suspicious osseous lesions. Normal conus terminates at L1. T11-12: No spinal canal neural foraminal narrowing. T12-L1: Mild disc degeneration and posterior disc bulge. No spinal canal or neural foraminal narrowing. L1-2 and L2-3: No spinal canal neural foraminal narrowing. L3-4: No narrowing of spinal canal. Mild facet arthropathy. L4-5: Posterior disc bulge. No narrowing of spinal canal. No neural foraminal narrowing. L5-S1: Grade 1 anterolisthesis. Unroofed posterior disc bulge. No narrowing of spinal canal. No impingement of the traversing S1 nerve roots. No neural foraminal narrowing. Mild facet arthropathy. Normal visualized SI joints. Normal paraspinal soft tissues. Procedure Note Figueroa Casper MD, PhD - 10/23/2024 For Patients: As a result of the Cures Act, medical imagingexams and procedure reports are released immediately into your electronicmedical record. You may view this report before your referring provider.If you have questions, please contact your health care provider. INDICATION: Left leg weakness. Low back pain. COMPARISON: 02/14/2023. TECHNIQUE: Sagittal T1, T2, and STIR sequences. Axial T1 and T2 weighted sequences. FINDINGS: Trace degenerative anterolisthesis of L5 on S1 measures approximately 4mm. Associated bilateral pars defects. Otherwise, normal alignment. Noacute fractures. Chronic mild loss of height and anterior wedging of theT12 and L1 vertebral bodies. No suspicious osseous lesions. Normal conus terminates at L1. T11-12: No spinal canal neural foraminal narrowing. T12-L1: Mild disc degeneration and posterior disc bulge. No spinal canalor neural foraminal narrowing. L1-2 and L2-3: No spinal canal neural foraminal narrowing. L3-4: No narrowing of spinal canal. Mild facet arthropathy. L4-5: Posterior disc bulge. No narrowing of spinal canal. No neuralforaminal narrowing. L5-S1: Grade 1 anterolisthesis. Unroofed posterior disc bulge. Nonarrowing of spinal canal. No impingement of the traversing S1 nerveroots. No neural foraminal narrowing. Mild facet arthropathy. Normal visualized SI joints. Normal paraspinal soft tissues. IMPRESSION: 1. Trace degenerative anterolisthesis of L5 on S1. Associated bilateralpars defects. 2. Otherwise normal alignment. No acute fractures 3. Lumbar spondylosis 4. At L5-S1, unroofed posterior disc bulge. No narrowing of the spinalcanal. No neural foraminal narrowing. 5. No spinal canal or neural foraminal narrowing at the remaining levels Dictated by Figueroa Casper MD @ 10/23/2024 3:30:56 PM (Electronically Signed) us All Cool MD MR Final Res ult * LIPID PANEL W REFLEX MEASURED LDL (08/23/2024 10:17 AM CDT) CHOLESTEROL, TOTAL 108 <200 mg/dL [facility] HDL CHOLESTEROL 50 > OR = 40 mg/dL [facility] TRIGLYCERIDES 61 <150 mg/dL [facility] LDL-CHOLESTEROL 44 mg/dL (calc) [facility] Comment: Reference range: <100 Desirable range <100 mg/dL for primary prevention; <70 mg/dL for patients with CHD or diabetic patients with > or = 2 CHD risk factors. LDL-C is now calculated using the Julieth calculation, which is a validated novel method providing better accuracy than the Friedewald equation in the estimation of LDL-C. Edgar SS et al. GALDINO. 2013;310(19): 4739-1299 (http://education.tastytrade/faq/BQC127) CHOL/HDLC RATIO 2.2 <5.0 (calc) [facility] NON HDL CHOLESTEROL 58 <130 mg/dL (calc) [facility] Comment: For patients with diabetes plus 1 major ASCVD risk factor, treating to a non-HDL-C goal of <100 mg/dL (LDL-C of <70 mg/dL) is considered a therapeutic option. Blood BLOOD SPECIMEN / Unknown 08/23/2024 10:17 AM CDT 08/23/2024 10:18 AM CDT All Cool MD CHEMISTRY Final Res ult Map Decisions [facility] [address] [place] [phone], [facility] [address] [place] [address] * ANTI HCV (11/22/2023 7:57 AM CDT) HEPATITIS C ANTIBODY Non-Reacti ve Non-React herrera 11/22/2023 2:52 PM CDT [facility] Comment:Please note, per www .CDC.gov: If a patient is known to be at high risk of HCV infection, or is symptomatic, and the physician's suspicion of HCV infection is high, HCV RNA testing is often employed and is of diagnostic value, even after an initial negative anti-HCV test result. Blood BLOOD SPECIMEN / Unknown Venipuncture / Unknown 11/22/2023 7:57 AM CDT 11/22/2023 7:58 AM CDT us All Cool MD SEND OUTS Final Res ult [facility] [address] [place] [address], [place] * COLONOSCOPY (11/02/2023 9:46 AM CDT) 11/02/2023 9:46 AM CDT Narrative Transcriptions Edgar Cabello MD - 11/02/2023 10:22 AM CDT Patient Name: Magno Bryant Procedure Date: 11/02/2023 Gender: Male Date of : 1965 Admit Type: Outpatient Procedure: Colonoscopy Proceduralist: Edgar Cabello MD , Soco Ferguson RN (Nurse), Moni Kam (Nurse) Referring MD: All Cool Indications/Pre-Op Diagnosis: Screening for colorectal malignant neoplasm, This is the patient's first colonoscopy Medications: Fentanyl 100 micrograms IV, Midazolam 2 mgIV, The level of sedation administered wasmoderate Procedure Description: The patient had risks, benefits and alternatives explained to andgave informed consent. The patient had a stable cardiopulmonary status and judged an adequate candidate for conscious sedation. The PCF-[id number] [id number] was passed through the anus and advanced to the cecum, identified by appendiceal orifice and ileocecal valve. The colonoscopy was performed without difficulty. The patient toleratedthe procedure well. The quality of the bowel preparation was good. The ileocecal valve, appendiceal orifice, and rectum were photographed. Complications: No immediate complications. Estimated Blood Loss & Specimen: Estimated blood loss: none. Specimen collected - None Findings: The perianal and digital rectal examinations were normal. The entire examined colon appeared normal. Impressions/Post-Op Diagnosis: - The entire examined colon is normal. - No specimens collected. Recommendation: - Patient has a contact number available for emergencies. The signsand symptoms of potential delayed complications were discussed with the patient. Return to normal activities tomorrow. Written discharge instructions were provided to the patient. - Resume previous diet. - Continue present medications. - Repeat colonoscopy in 10 years for screening purposes. Moderate Sedation: A time out was performed before the procedure. Moderate (conscious) sedation was administered by the endoscopy nurse and supervised bythe endoscopist. The following parameters were monitored: oxygensaturation, heart rate, blood pressure, EKG, CO2, respiratory rate, adequacy of pulmonary ventilation and reponse to care. Please refer to the patient's medical record flowsheets and nursing notes for moderate sedation details. Total physician intraservice time was 18 minutes. Edgar Cabello MD 11/02/2023 10:22:52 AM This report has been signed electronically. Note Initiated On: 11/02/2023 9:46 AM Procedure Code(s): --- Professional --- 89719, Colonoscopy, flexible; diagnostic, including collection of specimen(s) bybrushing or washing, when performed (separateprocedure) Diagnosis Code(s): --- Professional --- Z12.11, Encounter for screening formalignant neoplasm of colon CPT copyright 2022 [employer]. All rights reserved. The codes documented in this report are preliminary and upon color finisher reviewmay be revised to meet current compliance requirements. Scope In: 9:59:49 AM Scope Withdrawal Time 0 hours 6 minutes 48 seconds Scope Out: 10:15:44 AM us Edgar Cabello MD PROCEDURE ORD Final Res ult from Last 3 Months or Most Recently Relevant to Health Maintenance Insurance [id number] [facility] [id number] [facility] Advance Directives * Full Code (Latest Code Status on File) Date Activated Date Inactivated Comments 01/22/2023 11:40 PM 01/31/2023 5:25 PM Question Answer Comments Code Status Discussion: Reviewed Preferences Care Teams Nipping Machine Operator Relationship Specialty Start Date End Date All Cool MD [address] [facility] [place] [id number] PCP - General Family Practice 08/16/23
--- NOTE | 2025-01-19 03:14 | ED_ITS ---
HPI - General Adult General Date Seen: 01/19/25 Chief complaint: Unspecified Complaint, Adult Stated complaint: difficulty opening eyes Time Seen by Provider: 01/19/25 03:08 Source: patient, EMS, RN notes reviewed and old records reviewed Mode of arrival: EMS Limitations: no limitations History of Present Illness HPI narrative: Clemente is a very pleasant 59-year-old gentleman with history of diabetes, hyponatremia and what I assume is diabetic retinopathy with history of injections into his eyes who comes to the emergency room via EMS for increasing blurred vision and inability to open his eyes. Clemente states that he started having pressure behind his eyes last evening and his daughter had to come and get him from work. He notes increasing problems opening his eyes and thus called 911 when he was unable to get hold of his daughter. He notes no recent trauma. He denies a fever. He does endorse a cough and difficulty with swallowing over the past 3 days. He does not know of any ill contacts. Denies any pain at this time. Notes no nausea or vomiting. Related Data Home Medications ?Medication ?Instructions ?Recorded ?Confirmed insulin glargine 100 unit/mL (3 25 unit subcut DAILY@0 0 06/22/23 01/19/25 mL) subcutaneous pen (Lantus Solostar U-100 Insulin) insulin lispro 100 unit/mL 2 - 4 unit subcut TID PRN 0 06/22/23 01/19/25 subcutaneous pen rosuvastatin 10 mg tablet 10 mg PO HS 01/19/25 5 Previous Rx's ?Medication ?Instructions ?Recorded amoxicillin 875 mg-potassium 1 tab PO BID 5 days #10 t abs 01/20/25 clavulanate 125 mg tablet Allergies Allergy/AdvReac Type Severity Reaction Status Date / Time cephalexin (From Keflex) Allergy Rash Verified 06/27/23 08:06 Review of Systems Status of ROS: Reports: 10 or more systems reviewed and unremarkable except as noted in History and below Const: Reports: fatigue; Denies: fever or chills Eyes: Reports: change in vision and blurry vision (At baseline, worse tonight.) ENMT: Reports: throat pain, difficulty swallowing and nasal congestion; Denies: neck pain, throat swelling or hoarseness Cardio: Denies: chest pain, swelling of feet/ankles or shortness of breath with exertion Resp: Reports: cough; Denies: shortness of breath GI: Reports: difficulty swallowing; Denies: abdominal pain or vomiting : Denies: painful urination Musculo: Denies: back pain, neck pain or extremity pain Neuro: Reports: lack of coordination (Baseline); Denies: headache or numbness in extremities Endo: Reports: fatigue Allergy/Immuno: Denies: throat swelling PFSH [facility] Medical History (Updated 01/20/25 @ 11:09 by Cris Donnelly MD) Diabetes mellitus ?E11.9 - Type 2 diabetes mellitus without complications (ICD-10) Left leg weakness ?R29.898 - Other symptoms and signs involving the musculoskeletal system (ICD-10) Diabetic retinopathy ?E11.319 - Type 2 diabetes mellitus with unspecified diabetic retinopathy without macular edema (ICD-10) Compression fracture of L1 vertebra with routine healing ?S32.010D - Wedge compression fracture of first lumbar vertebra, subsequent encounter for fracture with routine healing (ICD-10) Diabetes mellitus ?E11.9 - Type 2 diabetes mellitus without complications (ICD-10) Recurrent inguinal hernia of right side without obstruction or gangrene ?K40.91 - Unilateral inguinal hernia, without obstruction or gangrene, recurrent (ICD-10) Surgical History (Updated 06/24/23 @ 12:30 by Shira Pedroza) H/O right inguinal hernia repair ?Z98.890 - Other specified postprocedural states (ICD-10) ?Z87.19 - Personal history of other diseases of the digestive system (ICD-10) History of incision and drainage ?Z98.890 - Other specified postprocedural states (ICD-10) Hx of hernia repair ?Z98.890 - Other specified postprocedural states (ICD-10) ?Z87.19 - Personal history of other diseases of the digestive system (ICD-10) Social History (Updated 01/19/25 @ 12:39 by Cris Donnelly MD) Narrative: , lives indepedently and works at [employer]. Daughter, Lucero Bauer lives in [place] and would be MDM if needed. No tobacco, ETOH, drug use. Full Code What is your current living situation?: I presently have a place to live Problems where you live: no known problems Problems where you live details: none In the past 12 months, utilities in danger of being shut off: yes In past 12 months, lack of transportation kept you from medical appts, meetings, work, or getting things needed for daily living: no In the past 12 mos, have been you worried that your food would run out before you had money to buy more?: sometimes true In the past 12 mos, the food you bought just didn't last and you didn't have money to buy more?: sometimes true Highest level of school completed/degree received: some college, no degree Smoking Status: Never smoker Do you use any of these nicotine containing products: None How often do you have a drink containing alcohol: never How often do you have six or more drinks on one occasion: Never AUDIT-C Alcohol total score: 0 Non-prescribed substance use: denies use Caffeine: Yes (SODA) How often does anyone, including family, friends and others, physically hurt you : never How often does anyone, including family, friends and others, insult or talk down to you: never How often does anyone, including family, friends and others, threaten you with harm: never How often does anyone, including family, friends and others, scream or curse at you: never service: No Health Related Social Needs: food insecurity (Z59.41) Exam Narrative: Exam Narrative: Alert and oriented. Some what odd responses to some of my questions, but redirectable. GCS of 15. Eyebrow raise smile symmetrical, tongue midline. Neck is supple without lymphadenopathy. He is protecting his airway and there is no muffled voice sounds. Right eyelid seems to be mildly erythematous and somewhat edematous. But there is no pain with palpation. I am questioning proptosis-definitely prominent eye on the right. Possibly subtle on the left. Pupils are equal and are reactive. Patient is spontaneously opening his eyes even though he is stating he cannot do so. His EOM is full. However when evaluating EOM I did have to hold his eyes open for him. Heart with a regular rate and rhythm. Lungs are clear bilaterally. I do note him coughing occasionally. Abdomen soft nontender. He is moving all of his extremities. Const: Vital Signs, click to edit/add: Vital Signs - 24 hr 01/19/25 03:18 01/19/25 03:49 01/19/25 04:05 Temperature 100.3 F H Pulse Rate 82 77 Pulse Rate [Left P ulse Oximeter] 78 Respiratory Rate 18 Blood Pressure [Ri ght Upper Arm] 141/83 H Pulse Oximetry 94 96 96 Oxygen Delivery Me thod Room Air 01/19/25 04:15 01/19/25 04:30 01/19/25 04:45 Temperature Pulse Rate 81 73 73 Pulse Rate [Left P ulse Oximeter] Respiratory Rate Blood Pressure [Ri ght Upper Arm] Pulse Oximetry 95 97 96 Oxygen Delivery Me thod 01/19/25 05:00 01/19/25 05:15 Temperature Pulse Rate 75 73 Pulse Rate [Left P ulse Oximeter] Respiratory Rate Blood Pressure [Ri ght Upper Arm] Pulse Oximetry 99 99 Oxygen Delivery Me thod Documenting provider has reviewed patient's vital signs: yes Course Course ED Course: Patient was met in the back hallway at which time he went to CT for head CT. Differential diagnosis is quite broad. I do have concerns regarding a periorbital or preseptal cellulitis of the right eye. Patient is noted to have low-grade temperature. He also has some erythema subtle as well as swelling of the eyelid. He has no pain with movement of the eye. Given the cough over the last 3 days I do think we also need to check for COVID. Will also add chest x- ray. Glaucoma of course is concerned but he has no pain and this would not cause swelling around the right eye. Labs will include CBC, comprehensive, CRP, sed rate, urinalysis, U tox, EtOH. I do believe that he has some medical problem going on this evening but I would also in questioning in over lying psycho some attic or anxiety related component as again we do see him opening his eyes spontaneously. Reevaluation(s) Reevaluation #1: Clemente had some after visit summary information from December 25. Appears he sees Dr. Klein. History includes chronic left leg weakness Type 2 diabetes History of left leg abscess status post irrigation debridement in 2022 L1 compression fracture Reevaluation #2: Patient has a history of rash from Keflex. Will treat with Zosyn 3.375 g IV at this time. Awaiting facial CT. Vital Signs Vital signs: Initial Vital Signs Temperature 100.3 F H 01/19/25 03:18 Temperature Source Oral 01/19/25 03:18 Pulse Rate 78 01/19/25 03:18 Pulse Rhythm Regular 01/19/25 03:18 Respiratory Rate 18 01/19/25 03:18 Blood Pressure 141/83 H 01/19/25 03:18 Blood Pressure Mean 102 01/19/25 03:18 Blood Pressure Position Semi-Fowlers 01/19/25 03:18 Pulse Oximetry 94 01/19/25 03:18 Oxygen Delivery Method Room Air 01/19/25 03:18 Vital Signs Temperature 100.3 F H 01/19/25 03:18 Pulse Rate 78 01/19/25 03:18 Respiratory Rate 18 01/19/25 03:18 Blood Pressure 141/83 H 01/19/25 03:18 Pulse Oximetry 94 01/19/25 03:18 Oxygen Delivery Method Room Air 01/19/25 03:18 Temperature 98.5 F 01/20/25 11:00 Pulse Rate 74 01/20/25 11:00 Respiratory Rate 16 01/20/25 11:00 Blood Pressure 143/83 H 01/20/25 11:00 Pulse Oximetry 97 01/20/25 11:00 Oxygen Delivery Method Room Air 01/20/25 11:00 Medications Administered Medications: Discontinued Medications Generic Name Dose Route Start Last Admin Trade Name Freq PRN Reason Stop Dose Admin Enoxaparin Sodium 40 mg 01/19/25 21:00 01/19/25 21:09 Enoxaparin 40 Mg/0.4 Ml Inj SUBCUT 40 mg HS LOVE Administration Guaifenesin 100 - 200 mg 01/19/25 22:00 01/20/25 06:44 Guaifenesin 100 Mg/Ml Cup PO 100 mg Q4H PRN Administration Cough Sodium Chloride 1,000 mls @ 1,000 mls/hr 01/19/25 04:43 01/19/25 05:34 0.9 % Sodium Chloride 1000 Ml IV 01/19/25 05:42 Infused .Q1H LOVE Infusion Piperacillin Sod/Tazobactam 100 mls @ 200 mls/hr 01/19/25 05:11 01/19/25 07:01 Sod 3.375 gm/ Sodium Chloride IVPB 01/19/25 05:12 Infused ONCE ONE Infusion Ampicillin Sodium/Sulbactam 100 mls @ 200 mls/hr 01/19/25 12:00 01/20/25 12:25 Sodium 3 gm/ Sodium Chloride IVPB Infused Q6H LOVE Infusion Insulin Aspart 0 unit 01/19/25 11:30 01/20/25 11:32 Insulin Aspart 100 Unit/Ml SUBCUT Not Given ACHS [facility] Protocol Insulin Glargine 12 unit 01/20/25 00:00 01/20/25 00:42 Insulin Glargine,Hum.Rec.Anlog 100 Unit/Ml Insuln.Pen SUBCUT 12 unit DAILY@0000 [facility] Administration Sodium Chloride 5 ml 01/19/25 09:00 01/20/25 07:48 Sodium Chloride 0.9 % (Flush) 10 Ml Syringe IVF 5 ml BID LOVE Administration Medical Decision Making MDM Narrative Medical decision making narrative: 1. 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 Recommending MR with and without contrast. Usually this is not done on the weekends but we are fortunate in that we have the ability to do MRI today. TSH normal with no evidence of Graves. GB would not normally start with the eyelids. Patient is noted to have been able to open eyes spontaneously in spite of complaints of being unable to do so. 2. Orbital cellulitis right eye-given fever upon presentation, elevated CRP and ESR as well as recent coughing x3 days sudden onset of patient's symptoms have given him a dose of Zosyn 3.375 g. A culture of the eye drainage from the right eye was accomplished. There also may be conjunctivitis with drainage noted from both eyes. Eye culture accomplished on the right. Patient tested negative for COVID influenza and RSV. 3. Type 2 diabetes with insulin use-blood sugar 69 in the ED and patient was given food and drink. 4. Elevated CK-unknown etiology. Patient is given 1 L of normal saline. Creatinine reassuring at this time. 5. Disposition-will admit under the care of hospitalist Dr. Donnelly for IV antibiotics, MRI and continued monitoring of eyelid swelling, fever and eye irritation. Medical Records Medical records reviewed: Yes I reviewed the patient's medical records Lab Data Lab results reviewed: Yes I reviewed the patient's lab results Labs: Lab Results 01/19/25 01/19/25 01/19/25 Range/Units 03:33 03:50 05:44 WBC 7.86 (4.50-11.00) K/uL RBC 4.34 (4.30-5.90) m/uL Hgb 12.9 L (13.5-17.5) gm/dL Hct 37.2 (37.0-53.0) % MCV 86 (80-100) fL MCH 30 (26-34) pg MCHC 35 (32-36) gm/dL RDW Coeff of Laury 11.9 (11.5-15.5) % Plt Count 152 (140-440) K/uL Neut % (Auto) 71.4 (42.0-72.0) % Lymph % (Auto) 15.8 L (20-44) % [place] % (Auto) 12.1 H (0.0-11.0) % Eos % (Auto) 0.3 (0.0-7.0) % Baso % (Auto) 0.4 (0.0-3.0) % Neut # (Auto) 5.62 (1.7-7.0) K/uL Lymph # (Auto) 1.20 (0.90-2.90) K/uL [place] # (Auto) 1.00 H (0.00-0.90) K/UL Eos # (Auto) 0.02 (0.00-0.50) K/uL Baso # (Auto) 0.03 (0.00-0.30) K/uL Abs Immat Gran (auto) 0.00 (0.00-0.30) K/uL Imm/Tot Granulo (auto) 0.0 % ESR 42 H (2-15) mm/hr Sodium 135 (135-149) mmol/L Potassium 3.7 (3.6-5.1) mmol/L Chloride 102 (96-114) mmol/L Carbon Dioxide 27 (20-32) mmol/L Anion Gap 6 L (7-15) mEq/L BUN 20 (7-30) mg/dL Creatinine 0.9 (0.5-1.5) mg/dL Estimated Creat Clear 96.39 Estimated GFR 98 ml/min Glucose 103 (60-115) mg/dL Calcium 8.6 (8.4-10.6) mg/dL Magnesium 1.9 (1.5-2.6) mg/dL Total Bilirubin 1.0 (0.1-1.5) mg/dL AST 42 H (12-35) U/L ALT 32 (4-50) U/L Alkaline Phosphatase 58 (40-150) U/L Total Creatine Kinase 307 H (54-186) U/L C-Reactive Protein 7.5 H (0.5-1.0) mg/dL Total Protein 7.1 (6.0-8.3) g/dL Albumin 4.1 (3.3-5.0) g/dL TSH 1.590 (0.270-4.20) uIU/mL Ethyl Alcohol < 0.01 (0.01-0.03) % SARS-CoV-2 (PCR) Negative SARS-CoV-2 (Negative) Influenza Type A (PCR) Negative PCR FLU A (Negative) Influenza Type B (PCR) Negative PCR FLU B (Negative) Lab Acknowledgement Test Added Imaging Data CT scan - head: Attestation: I have reviewed the pertinent imaging results. My impression: I do not note intracranial bleed. Right sphenoid wing Radiologist's impression: CSF spaces: Within normal limits for age. Brain parenchyma: The cordova-white differentiation is maintained. No evidence of intracranial hemorrhage, extra-axial collection, or midline shift. Skull base and calvarium: Mild scattered mucosal thickening throughout the paranasal sinuses. Mastoid air cells are clear. The visualized orbits are grossly unremarkable. Mildly expansile heterogeneous appearance of the right sphenoid wing. IMPRESSION: 1. No acute intracranial hemorrhage or mass effect. 2. Mildly expansile heterogeneous appearance of the right sphenoid wing. Differential considerations include intraosseous meningioma or Paget`s disease. Chest x-ray: Attestation: I have reviewed the pertinent imaging results. My impression: I do not note any infiltrate Radiologist's impression: Cardiovasculature and mediastinum: Heart size is normal. Unremarkable mediastinum. Lungs and pleural spaces: No focal consolidation. No pneumothorax or pleural effusion. Bones and soft tissues: No significant findings. IMPRESSION: No acute findings. Facial CT: Attestation: I have reviewed the pertinent imaging results. Radiologist's impression: Facial bones: No acute fracture or dislocation. Heterogeneous, sclerotic and expansile appearance of the right sphenoid wing. There is minimal extension into the extraconal fat on the right without contact of the intra-ocular muscles. Orbits and globes: Moderate proptosis of the right globe. Left globe is unremarkable. Sinuses: Moderate scattered sinus opacification. Soft tissues: No definite soft tissue mass. IMPRESSION: Redemonstration heterogeneous and mildly expansile appearance of the right sphenoid wing. The differential is broad, including intraosseous meningioma or Paget`s disease. No definite soft tissue component, but if further evaluation is desired to evaluate for soft tissue component, MR with and without contrast can be considered. Moderate proptosis of the right globe. Discharge Plan Discharge Clinical Impression: Diabetes mellitus, Cellulitis of right orbit, Hemangioma, Conjunctivitis Patient Disposition: Admitted As Inpatient Condition: Improved Activity Level: Activity as Tolerated and No strenuous activity Discharge Diet: Diabetic
--- NOTE | 2025-01-19 03:37 | CRLHL7_ITS ---
For Patients: As a result of the Century Cures Act, medical imaging exams and procedure reports are released immediately into your electronic medical record. You may view this report before your referring provider. If you have questions, please contact your health care provider. INDICATION: Right eyelid swelling, sphenoid abnormality TECHNIQUE: CT maxillofacial without contrast. COMPARISON: Same-day CT head. FINDINGS: Facial bones: No acute fracture or dislocation. Heterogeneous, sclerotic and expansile appearance of the right sphenoid wing. There is minimal extension into the extraconal fat on the right without contact of the intra-ocular muscles. Orbits and globes: Moderate proptosis of the right globe. Left globe is unremarkable. Sinuses: Moderate scattered sinus opacification. Soft tissues: No definite soft tissue mass. IMPRESSION: Redemonstration heterogeneous and mildly expansile appearance of the right sphenoid wing. The differential is broad, including intraosseous meningioma or Paget`s disease. No definite soft tissue component, but if further evaluation is desired to evaluate for soft tissue component, MR with and without contrast can be considered. Moderate proptosis of the right globe. Please note that all CT scans at this facility use dose modulation, iterative reconstruction, and/or weight-based dosing when appropriate to reduce radiation dose to as low as reasonably achievable. Dictated by Anita Kapadia MD @ 01/19/2025 5:06:22 AM (Electronically Signed)
[2025-01-19 03:51] LABS: Hematocrit* 37.2 % (37.0-53.0); Hemoglobin* 12.9 gm/dL (13.5-17.5); Immature Granulocytes Abs Auto 0.00 K/uL (0.00-0.30); Immature Granulocytes Pct Auto 0.0 %; Mean Corpuscular HGB Conc 35 gm/dL (32-36); Mean Corpuscular Hemoglobin 30 pg (26-34); Mean Corpuscular Volume 86 fL (80-100); RDW Coefficient of Variation % 11.9 % (11.5-15.5); Red Blood Count* 4.34 m/uL (4.30-5.90); White Blood Count* 7.86 K/uL (4.50-11.00)
--- NOTE | 2025-01-19 03:55 | CRLHL7_ITS ---
For Patients: As a result of the Century Cures Act, medical imaging exams and procedure reports are released immediately into your electronic medical record. You may view this report before your referring provider. If you have questions, please contact your health care provider. INDICATION: Cough TECHNIQUE: Chest 1 views. COMPARISON: None. FINDINGS: Cardiovasculature and mediastinum: Heart size is normal. Unremarkable mediastinum. Lungs and pleural spaces: No focal consolidation. No pneumothorax or pleural effusion. Bones and soft tissues: No significant findings. IMPRESSION: No acute findings. Dictated by Anita Kapadia MD @ 01/19/2025 5:11:21 AM (Electronically Signed)
[2025-01-19 04:32] LABS: Albumin* 4.1 g/dL (3.3-5.0); Chloride* 102 mmol/L (96-114)
[2025-01-19 04:32] LABS: PCR FLU A Negative PCR FLU A (Negative); PCR FLU B Negative PCR FLU B (Negative); SARS PCR* Negative SARS-CoV-2 (Negative)
[2025-01-19 04:33] LABS: Potassium* 3.7 mmol/L (3.6-5.1); Sodium* 135 mmol/L (135-149)
[2025-01-19 04:35] LABS: Alanine Aminotransferase* 32 U/L (4-50); Alkaline Phosphatase* 58 U/L (40-150); Anion Gap 6 mEq/L (7-15); Aspartate Amino Transferase* 42 U/L (12-35); Bilirubin Total* 1.0 mg/dL (0.1-1.5); Blood Urea Nitrogen* 20 mg/dL (7-30); Carbon Dioxide* 27 mmol/L (20-32); Creatine Kinase* 307 U/L (54-186); Creatinine* 0.9 mg/dL (0.5-1.5); Est. Creatinine Clearance* 96.39; Estimated Glomerular Filt Rate 98 ml/min; Total Protein* 7.1 g/dL (6.0-8.3)
[2025-01-19 04:36] LABS: Calcium* 8.6 mg/dL (8.4-10.6); Ethanol* < 0.01 % (0.01-0.03); Glucose* 103 mg/dL (60-115)
[2025-01-19 04:37] LABS: Lymphocytes Absolute Auto 1.20 K/uL (0.90-2.90); Slide Review Reflex No
[2025-01-19] MEDS: PIPERACILLIN/TAZOBACTAM 3.375 GM in 0.9 % SODIUM CHLORIDE Mini-bag 100 ML IVPB (05:33)
[2025-01-19 06:00] LABS: Erythrocyte SedimentationRate* 42 mm/hr (2-15)
--- NOTE | 2025-01-19 06:18 | ED.NURSE ---
Right eye 20/100 and left eye 20/100 with visual acuity.
--- NOTE | 2025-01-19 08:09 | CRLHL7_ITS ---
For Patients: As a result of the Century Cures Act, medical imaging exams and procedure reports are released immediately into your electronic medical record. You may view this report before your referring provider. If you have questions, please contact your health care provider. Indication: Follow-up right sphenoid abnormality, abnormal CT Technique: Multiplanar, multisequence MRI of the brain obtained without and with contrast. A total of 15 mL of Dotarem IV contrast was administered. Comparison: CT head and facial bones 01/19/2025 Findings: Enhancing extra-axial lesion centered on the right greater and lesser sphenoid wings, with intracranial component along the anterior right middle cranial fossa measuring up to 1 cm AP thickness and extraconal orbital component along the posterolateral wall measuring up to 3 mm thickness. There is also abnormal intramuscular enhancement throughout the adjacent right temporalis muscle extending into the infratemporal fossa. Mild intracranial mass effect upon the right temporal pole, without parenchymal edema, temporal horn effacement, midline shift or herniation. No abnormal restricted diffusion, intra or extra-axial fluid collection. Scattered FLAIR hyperintense foci throughout the cerebral white matter, typical of chronic microangiopathy. No other suspicious intracranial enhancement identified. Midline structures are unremarkable. Preserved major intracranial arterial flow voids. Sclerotic changes of the infiltrative right sphenoid bone, with otherwise normal calvarial marrow signal. Paranasal sinus mucosal thickening without air-fluid level or mastoid effusion. Mild right globe proptosis. Impression: 1. 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 2. Thin intracranial component exerts mild mass effect upon the right temporal pole, without parenchymal edema. 3. Thin extraconal orbital component contributes to mild right globe proptosis. 4. Abnormal intramuscular enhancement of the adjacent right temporalis muscle extending into the infratemporal fossa, Dictated by Vannesa Ramos MD @ 01/19/2025 3:54:52 PM (Electronically Signed)
--- NOTE | 2025-01-19 08:43 | P.IMHP_ITS ---
Assessment and Plan Assessment and plan (1) Proptosis: Problem comment: - unilateral (R); likely 2/2 cellulitis, ddx includes vasculitis - TSH normal, MRI pending Status: Acute (2) Cellulitis of right orbit: Problem comment: - received Zosyn in ED 01/19, will transition to Unasyn. Blood cultures obtained (after Zosyn) and pending - MRI will be helpful to evaluate for any vasculitic features (given history, elevated inflammatory markers) Status: Acute (3) Conjunctivitis: Status: Acute (4) Diabetes mellitus: Problem comment: - new diagnosis 01/2023, on Lantus 2 agree still waiting 5U HS + home sliding scale (rarely uses) - continue Lantus at 12.5U, SSI here - has Suzi for CGM, A1C has been 6 or below for the past year Status: Inactive (5) Diabetic retinopathy: Problem comment: - sees Dr French at [facility] for Avastin injections Status: Acute (6) Left leg weakness: Problem comment: - chronic, sees his PCP Dr. Klein in addition to Dr. Soria of Neurology at [facility] - recently had an extensive workup with + MPO, referred to rheumatology 12/2024 to evaluate for vasculitic neuropathy Status: Acute Plan - per above - requires inpatient status for IV abx, monitoring, imaging, culture followup Hospitalist- H&P: HPI History of Present Illness Date Seen: 01/19/25 Chief complaint: difficulty opening eyes Narrative: Magno Bryant is a 59 year old male who presented to the emergency room overnight for inability to open his eyes. He was having difficulty getting his eyelids open; presumably secondary to eye discharge. He also had some discomfort and vision seemed obscured (but he also notes he was tired and had lower blood sugar when symptoms began). No recent illness. History of IDDM2, diagnosed 2022. A1C has been 6.0 or below for the past year. ER course and findings: - Proptosis and edema of R eye and eyelid, + drainage was cultured - labs primarily reassuring with the exception of elevated CRP, CK, ESR - given dose of Zosyn - CT head negative, CXR reassuring, CT dedicated facial bones: Abnormal right sphenoid wing, possible meningioma versus Paget's disease. MRI recommended. Proptosis noted as well Magno is admitted for management of orbital cellulitis, evaluation of mass and right sphenoid wing, await culture results. Histories updated below, PCP is Dr. Klein at [facility]. Review of Systems Status of ROS: Reports: 10 or more systems reviewed and unremarkable except as noted in History and below Medical Decision Making Medical Decision Making Code Status: Full Has patient completed a Health Care Directive: Yes During This Stay, Who Would You Like To Make Decisions For You In The Event You Are Unable To Make Them For Yourself?: Daughter Lucero [facility] Medical History (Updated 01/19/25 @ 15:04 by Cris Donnelly MD) Diabetes mellitus ?E11.9 - Type 2 diabetes mellitus without complications (ICD-10) Left leg weakness ?R29.898 - Other symptoms and signs involving the musculoskeletal system (ICD-10) Diabetic retinopathy ?E11.319 - Type 2 diabetes mellitus with unspecified diabetic retinopathy without macular edema (ICD-10) Compression fracture of L1 vertebra with routine healing ?S32.010D - Wedge compression fracture of first lumbar vertebra, subsequent encounter for fracture with routine healing (ICD-10) Diabetes mellitus ?E11.9 - Type 2 diabetes mellitus without complications (ICD-10) Recurrent inguinal hernia of right side without obstruction or gangrene ?K40.91 - Unilateral inguinal hernia, without obstruction or gangrene, recurrent (ICD-10) Surgical History (Updated 06/24/23 @ 12:30 by Shira Pedroza) H/O right inguinal hernia repair ?Z98.890 - Other specified postprocedural states (ICD-10) ?Z87.19 - Personal history of other diseases of the digestive system (ICD-10) History of incision and drainage ?Z98.890 - Other specified postprocedural states (ICD-10) Hx of hernia repair ?Z98.890 - Other specified postprocedural states (ICD-10) ?Z87.19 - Personal history of other diseases of the digestive system (ICD-10) Social History (Updated 01/19/25 @ 12:39 by Cris Donnelly MD) Narrative: , lives indepedently and works at [employer]. Daughter, Lucero Bauer lives in [place] and would be MDM if needed. No tobacco, ETOH, drug use. Full Code What is your current living situation?: I presently have a place to live Problems where you live: no known problems Problems where you live details: none In the past 12 months, utilities in danger of being shut off: yes In past 12 months, lack of transportation kept you from medical appts, meetings, work, or getting things needed for daily living: no In the past 12 mos, have been you worried that your food would run out before you had money to buy more?: sometimes true In the past 12 mos, the food you bought just didn't last and you didn't have money to buy more?: sometimes true Highest level of school completed/degree received: some college, no degree Smoking Status: Never smoker Do you use any of these nicotine containing products: None How often do you have a drink containing alcohol: never How often do you have six or more drinks on one occasion: Never AUDIT-C Alcohol total score: 0 Non-prescribed substance use: denies use Caffeine: Yes (SODA) How often does anyone, including family, friends and others, physically hurt you : never How often does anyone, including family, friends and others, insult or talk down to you: never How often does anyone, including family, friends and others, threaten you with harm: never How often does anyone, including family, friends and others, scream or curse at you: never service: No Health Related Social Needs: food insecurity (Z59.41) Meds Home Medications and Allergies Home Medications ?Medication ?Instructions ?Recorded ?Confirmed ?Type insulin glargine 100 unit/mL (3 25 unit subcut DAILY@0 0 06/22/23 01/19/25 History mL) subcutaneous pen (Lantus Solostar U-100 Insulin) insulin lispro 100 unit/mL 2 - 4 unit subcut TID PRN 0 06/22/23 01/19/25 History subcutaneous pen rosuvastatin 10 mg tablet 10 mg PO HS 01/19/25 5 History Allergies Allergy/AdvReac Type Severity Reaction Status Date / Time cephalexin (From Keflex) Allergy Rash Verified 06/27/23 08:06 Exam Const: Vital Signs, click to edit/add: Vital Signs - 24 hr 01/19/25 03:18 01/19/25 03:49 01/19/25 04:05 Temperature 100.3 F H Pulse Rate 82 77 Pulse Rate [Left P ulse Oximeter] 78 Pulse Rate [Left R adial] Respiratory Rate 18 Blood Pressure [Le ft Arm] Blood Pressure [Ri ght Upper Arm] 141/83 H Pulse Oximetry 94 96 96 Oxygen Delivery Me thod Room Air 01/19/25 04:15 01/19/25 04:30 01/19/25 04:45 Temperature Pulse Rate 81 73 73 Pulse Rate [Left P ulse Oximeter] Pulse Rate [Left R adial] Respiratory Rate Blood Pressure [Le ft Arm] Blood Pressure [Ri ght Upper Arm] Pulse Oximetry 95 97 96 Oxygen Delivery Me thod 01/19/25 05:00 01/19/25 05:15 01/19/25 08:18 Temperature Pulse Rate 75 73 Pulse Rate [Left P ulse Oximeter] 74 Pulse Rate [Left R adial] Respiratory Rate 20 Blood Pressure [Le ft Arm] Blood Pressure [Ri ght Upper Arm] 128/73 Pulse Oximetry 99 99 Oxygen Delivery Me thod 01/19/25 08:19 Temperature 98.7 F Pulse Rate Pulse Rate [Left P ulse Oximeter] Pulse Rate [Left R adial] 84 Respiratory Rate 18 Blood Pressure [Le ft Arm] 141/80 H Blood Pressure [Ri ght Upper Arm] Pulse Oximetry 94 Oxygen Delivery Me thod Room Air Hospitalist - H&P: Result Labs Labs: Short CBC 01/19/25 Range/Units 03:33 WBC 7.86 (4.50-11.00) K/uL Hgb 12.9 L (13.5-17.5) gm/dL Hct 37.2 (37.0-53.0) % Plt Count 152 (140-440) K/uL [facility] 01/19/25 03:33 Sodium 135 Potassium 3.7 Chloride 102 Carbon Dioxide 27 BUN 20 Creatinine 0.9 Glucose 103 Calcium 8.6 Cardiac Enzymes 01/19/25 Range/Units 03:33 Total Creatine Kinase 307 H (54-186) U/L Liver Function 01/19/25 Range/Units 03:33 Total Bilirubin 1.0 (0.1-1.5) mg/dL AST 42 H (12-35) U/L ALT 32 (4-50) U/L Alkaline Phosphatase 58 (40-150) U/L Albumin 4.1 (3.3-5.0) g/dL
[2025-01-19 08:47] LABS: Lab Add On Test New Spec Needed
[2025-01-19 09:16] LABS: HCO3 VBG 27 mmol/L (21-28); Lactate* 0.6 mmol/L (0.5-1.9); PCO2 VBG 40 mmHG (40-50); PO2 VBG 76.8 mmHG (25-47); pH VBG 7.437 (7.32-7.43)
[2025-01-19] MEDS: SODIUM CHLORIDE 0.9 % (FLUSH) 10 ML SYRINGE 5 ML IVF ×2 (10:06→21:09)
[2025-01-19 11:16] LABS: Appearance Urine Clear (Clear)
[2025-01-19 11:33] LABS: Cannabinoid Screen Urine Negative (Negative); Methamphetamines Screen Urine Negative (Negative); Tricyclic Antidepressant Urine Negative (Negative)
[2025-01-19] MEDS: AMPICILLIN/SULBACTAM 3 GM in 0.9 % SODIUM CHLORIDE Mini-bag 100 ML IVPB ×2 (11:47→17:40)
[2025-01-19] MEDS: INSULIN ASPART 100 UNIT/ML SUBCUT (17:39)
--- NOTE | 2025-01-19 18:21 | PC.NURSE ---
End of Shift: Patient pleasant and cooperative, A&O. VSS, afebrile. Right eye appears watery, denies pain this shift. Pt reports blurred vision in right eye. Dry cough noted, denies SOB. Tolerating regular diet, denies nausea. Sliding scale insulin given per protocol this shift. Independent in room.
[2025-01-19] MEDS: ENOXAPARIN 40 MG/0.4 ML INJ SUBCUT (21:09)
[2025-01-19] MEDS: guaiFENesin 100 MG/ML CUP PO (22:55)
[2025-01-20] MEDS: AMPICILLIN/SULBACTAM 3 GM in 0.9 % SODIUM CHLORIDE Mini-bag 100 ML IVPB ×3 (00:43→11:35)
[2025-01-20 01:00] VITALS: PULSE 76
[2025-01-20 03:31] VITALS: BP 144/84; PULSE 75; RESP 18; TEMP 37.3; O2SAT 97
[2025-01-20 06:42] LABS: Hematocrit* 35.3 % (37.0-53.0); Hemoglobin* 12.1 gm/dL (13.5-17.5); Immature Granulocytes Abs Auto 0.01 K/uL (0.00-0.30); Immature Granulocytes Pct Auto 0.2 %; Lymphocytes Absolute Auto 1.20 K/uL (0.90-2.90); Mean Corpuscular HGB Conc 34 gm/dL (32-36); Mean Corpuscular Hemoglobin 30 pg (26-34); Mean Corpuscular Volume 86 fL (80-100); RDW Coefficient of Variation % 11.9 % (11.5-15.5); Red Blood Count* 4.09 m/uL (4.30-5.90); White Blood Count* 6.52 K/uL (4.50-11.00)
[2025-01-20] MEDS: guaiFENesin 100 MG/ML CUP PO (06:44)
[2025-01-20 06:45] LABS: Slide Review Reflex No
[2025-01-20 07:00] VITALS: BP 142/67; PULSE 76; PULSE 77; RESP 16; TEMP 37.3; O2SAT 96
[2025-01-20 07:16] LABS: Albumin* 3.6 g/dL (3.3-5.0); Chloride* 102 mmol/L (96-114); Potassium* 3.8 mmol/L (3.6-5.1); Sodium* 136 mmol/L (135-149)
[2025-01-20 07:18] LABS: Blood Urea Nitrogen* 13 mg/dL (7-30); Creatinine* 0.7 mg/dL (0.5-1.5); Est. Creatinine Clearance* 124.71; Estimated Glomerular Filt Rate 106 ml/min
[2025-01-20 07:19] LABS: Alanine Aminotransferase* 40 U/L (4-50); Alkaline Phosphatase* 67 U/L (40-150); Anion Gap 2 mEq/L (7-15); Aspartate Amino Transferase* 41 U/L (12-35); Bilirubin Total* 0.6 mg/dL (0.1-1.5); Calcium* 8.4 mg/dL (8.4-10.6); Carbon Dioxide* 32 mmol/L (20-32); Glucose* 100 mg/dL (60-115); Total Protein* 6.4 g/dL (6.0-8.3)
--- NOTE | 2025-01-20 07:19 | PC.NURSE ---
Pt pleasant, alert and oriented.?Elevated temps, highest being 99.3, otherwise VSS. Pt called and stated being unable to open eyes, staff helped clean eyes with warm cloth and pt was able to open them. Bed alarm on due to eye discharge. Periorbital swelling noted. Cool wash cloth provided. Pt up with cane. Pt in bed, appears to be resting, call light within reach. ?
[2025-01-20 07:20] LABS: Erythrocyte SedimentationRate* 51 mm/hr (2-15)
[2025-01-20] MEDS: SODIUM CHLORIDE 0.9 % (FLUSH) 10 ML SYRINGE 5 ML IVF (07:48)
[2025-01-20 11:00] VITALS: BP 143/83; PULSE 74; RESP 16; TEMP 36.9; O2SAT 97
--- NOTE | 2025-01-20 11:01 | P.DS_ITS ---
DS: Providers Provider Date Seen: 01/20/25 Date of admission: 01/19/25 08:08 Primary care physician: All Klein MD Admitting Clinician: Cris Donnelly MD Consults: Neurosurgery by phone Attending Physician on discharge: Cris Donnelly MD Date of Discharge: 01/20/25 DS: Diagnosis Discharge Diagnosis (1) Proptosis: Status: Acute Problem details: - unilateral (R); likely 2/2 cellulitis, ddx includes vasculitis - TSH normal, MRI 01/19: Impression: 1. 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 2. Thin intracranial component exerts mild mass effect upon the right temporal pole, without parenchymal edema. 3. Thin extraconal orbital component contributes to mild right globe proptosis. 4. Abnormal intramuscular enhancement of the adjacent right temporalis muscle extending into the infratemporal fossa (2) Meningioma: Status: Acute Problem details: - new diagnosis 01/19/25, presumably source of proptosis - MRI results from 01/19 below - reviewed findings with Dr. Mack of Neurosurgery through [facility]; he will see patient in the clinic tomorrow Impression: 1. 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 2. Thin intracranial component exerts mild mass effect upon the right temporal pole, without parenchymal edema. 3. Thin extraconal orbital component contributes to mild right globe proptosis. 4. Abnormal intramuscular enhancement of the adjacent right temporalis muscle extending into the infratemporal fossa (3) Cellulitis of right orbit: Status: Acute Problem details: - received Zosyn in ED 01/19, transitioned to Unasyn upon admission. Blood cultures obtained (after Zosyn) and NGTD upon discharge (4) Conjunctivitis: Status: Acute Problem details: - covered with abx, drainage cultured, pending upon d/c - improved 01/20 (5) Diabetes mellitus: Status: Inactive Problem details: - new diagnosis 01/2023, on Lantus 2 agree still waiting 5U HS + home sliding scale (rarely uses) - continue Lantus at 12.5U, SSI here - has Suzi for CGM, A1C has been 6 or below for the past year (6) Diabetic retinopathy: Status: Acute Problem details: - sees Dr French at [facility] for Avastin injections (7) Left leg weakness: Status: Acute Problem details: - chronic, sees his PCP Dr. Klein in addition to Dr. Soria of Neurology at [facility] - recently had an extensive workup with + MPO, referred to rheumatology 12/2024 to evaluate for vasculitic neuropathy DS: Summary Hospital Course Hospital Course: Magno Bryant is a 59 year old male who presented to the emergency room on 01/19/25 for the inability to open his eyes, presumably secondary to discharge. He also noted discomfort and vision seemed obscured (but he also notes he was tired and had lower blood sugar when symptoms began, does not have normal vision at baseline). He follows with ophthalmology for Avastin injections given history of diabetic retinopathy. No recent illness prior to presentation. Comorbidities include hyperlipidemia and IDDM2, diagnosed 2022. A1C has been 6.0 or below for the past year. In the emergency room, he was noted to have right proptosis on visual exam, erythema of right eyelid, and temperature of 100.3? Imaging in the ER revealed an abnormal right sphenoid wing. Eye drainage cultured, antibiotics initiated, and he was admitted for further imaging and continued antibiotic therapy. 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 Treated with Unasyn with no fever recurrence. Vital signs and labs remained reassuring. He had normal EOMIs throughout stay without photophobia, vision remained baseline. Eye drainage worse after waking up; controlled with warm compresses. Dr. Pino ESPITIA of Neuro surgery consulted on 01/20/2025; will see patient in clinic tomorrow. Clemente was medically appropriate for discharge home on antibiotics with close specialty follow-up on 01/20/2025. Daughter updated by phone, questions answered. Status at Discharge Functional status at discharge: independent ambulation Overall status at discharge: patient is progressing back to baseline Time Spent with Patient Time attestation: Total time spent providing and/or coordinating discharge services: Exam Narrative: Exam Narrative: GEN: Alert and oriented, sitting comfortably in bed and nontoxic in appearance HEENT: Edentulous. Persistent mild to erythema and edema of right eyelid. Able to open eye fully, EOMIs bilaterally. No photophobia, no significant conjunctival injection CV: RRR, No concerning murmurs R: LCTA bilaterally, speaking in full sentences without dyspnea Ext: wwp, no concerning edema Skin: No concerning skin lesions or rashes on exposed skin Neuro: Nonfocal Psych: Appropriate Const: Vital Signs, click to edit/add: Vital Signs - 24 hr 01/19/25 15:00 01/19/25 15:30 01/19/25 15:42 Temperature 99.1 F Pulse Rate 80 Pulse Rate [Left R adial] 82 82 Pulse Rate [Pulse Oximeter] Respiratory Rate 18 18 Blood Pressure [Le ft Arm] 133/86 Pulse Oximetry 95 [facility] 01/19/25 19:29 01/19/25 23:00 01/19/25 23:00 Temperature 99.3 F 99.1 F Pulse Rate Pulse Rate [Left R adial] Pulse Rate [Pulse Oximeter] 87 82 82 Respiratory Rate 16 18 18 Blood Pressure [Le ft Arm] 146/87 H 147/82 H Pulse Oximetry 93 98 [facility] Room Air 01/20/25 01:00 01/20/25 03:31 01/20/25 07:00 Temperature 99.2 F Pulse Rate 76 Pulse Rate [Left R adial] Pulse Rate [Pulse Oximeter] 75 Respiratory Rate 18 16 Blood Pressure [Le ft Arm] 144/84 H Pulse Oximetry 97 Oxygen Delivery Mn thod 01/20/25 07:00 01/20/25 07:00 Temperature 99.2 F Pulse Rate 77 Pulse Rate [Left R adial] Pulse Rate [Pulse Oximeter] 76 Respiratory Rate 16 Blood Pressure [Le ft Arm] 142/67 H Pulse Oximetry 96 [facility]xygen [facility] DS: Data Data Completed and Pending Labs on day of discharge: Labs from last 24 hours 01/20/25 01/20/25 01/19/25 06:11 05:30 11:05 WBC 6.52 RBC 4.09 L Hgb 12.1 L Hct 35.3 L MCV 86 MCH 30 MCHC 34 RDW Coeff of Laury 11.9 Plt Count 138 L Neut % (Auto) 69.0 Lymph % (Auto) 18.4 L Loup % (Auto) 10.9 Eos % (Auto) 0.9 Baso % (Auto) 0.6 Neut # (Auto) 4.50 Lymph # (Auto) 1.20 Loup # (Auto) 0.70 Eos # (Auto) 0.06 Baso # (Auto) 0.04 Abs Immat Gran (auto) 0.01 Imm/Tot Granulo (auto) 0.2 ESR 51 H Sodium 136 Potassium 3.8 Chloride 102 Carbon Dioxide 32 Anion Gap 2 L BUN 13 Creatinine 0.7 Estimated Creat Clear 124.71 Estimated GFR 106 Glucose 100 Calcium 8.4 Total Bilirubin 0.6 AST 41 H ALT 40 Alkaline Phosphatase 67 C-Reactive Protein 8.1 H Total Protein 6.4 Albumin 3.6 Urine Color Yellow Urine Appearance Clear Urine pH 6.0 Ur Specific [place] >= 1.030 Urine Protein Trace A Urine Glucose (UA) Negative Urine Ketones Trace A Urine Blood Negative Urine Nitrite Negative Urine Bilirubin Negative Urine Urobilinogen 2.0 A Ur Leukocyte Esterase Negative Urine RBC 0-2 Urine WBC 0-2 Ur Squamous Epith Cells Few Urine Bacteria None Urine Mucus Few A Urine Opiates Screen Negative Ur Oxycodone Screen Negative Urine Methadone Screen Negative Ur Barbiturates Screen Negative U Tricyclic Antidepress Negative Ur Phencyclidine Scrn Negative Ur Amphetamines Screen Negative U Methamphetamines Scrn Negative U Benzodiazepines Scrn Negative Urine Cocaine Screen Negative U Marijuana (THC) Screen Negative Ur Drug Screen Comment See Note Preliminary micro results at discharge 01/19/25 09:02 Blood Culture - Preliminary Blood NO GROWTH AFTER 24 HOURS 01/19/25 09:08 Blood Culture - Preliminary Blood NO GROWTH AFTER 24 HOURS 01/19/25 05:15 Eye/Ear/Nose/Throat Culture - Preliminary Eye Right Culture in Progress Discharge Plan Discharge Disposition: Home, Self-Care Date of Admission: 01/19/25 08:08 Attending Provider on Discharge: Cris Donnelly Consulting Providers: Paul Mack Primary Care Provider: All Klein Condition: Improved Anticipated Discharge Date/Time: 01/20/25 10:54 Discharge Medications: New amoxicillin-pot clavulanate 875-125 mg tablet 1 tab PO BID 5 Days Qty: 10 0RF Continued rosuvastatin 10 mg tablet 10 mg PO HS insulin lispro 100 unit/mL insulin pen 2 - 4 unit subcut TID PRN Rx Instructions: Uses as needed, every couple days on average. insulin glargine [Lantus Solostar U-100 Insulin] 100 unit/mL (3 mL) insulin pen 25 unit subcut DAILY@00 Rx Instructions: takes at midnight Discharge Orders: Discharge Order (Routine); Ordered 01/20/25 Ordered By: Cris Donnelly Patient Education: Amoxicillin/Clavulanate Potassium (By mouth), Meningioma (DC), Orbital Cellulitis (DC) Additional Instructions: Dr. Mack would like to see you tomorrow. Call his clinic at [phone] at 9am and they will let you know when to arrive. Make sure the blood bank order control clerk knows he talked to us over the weekend and approved an appointment for you tomorrow to discuss your MENINGIOMA. His office is at the [facility] in [place] ([address] [place] [address] [address]). No changes to Home insulin or statin. Antibiotics twice per day for the next 5 days (make sure to take with food and a probiotic so you do not get diarrhea). You can use a warm washcloth as needed to help with eye drainage. Call or return to the hospital for any worsening or new symptoms. Activity Level: Activity as Tolerated and No strenuous activity Discharge Diet: Diabetic Follow Up Appointments: All Klein MD [Primary Care Provider, Family Practice] Referral Note: 10-14 days for hospital and Neurosurgery f/u Forms: Patient Belongings, MyHealth Info Instructions
--- NOTE | 2025-01-20 13:30 | PC.NURSE ---
Pt pleasant to care for. VSS. Denies pain. Afebrile this shift. Bilateral eye swelling and drainage is improving. Pt reports vision has returned to his baseline. Pt is ambulating independently and tolerating oral intake. Pt belongings and discharge instructions signed. Pt discharged home at 1245 via daughter.
--- NOTE | 2025-01-21 11:24 | PC.SOCIAL ---
Social Service Consult: SW called patient for f/u after a consult was placed on the weekend and he discharged. SW inquired about any support or resources that patient would like or has questions about. Patient states that he has no concerns or questions at this time and has his basic needs met. SW explained if anything does arise, that the clinic/hospital has SW that can assist.
== END 2025-01-20 12:45 | disposition home or self-care (01) | DRG 80 ==
LOC: ED 07:55 → MEDSURG 08:08
PROVIDERS: Admitting Provider Family Medicine; Emergency Provider Family Medicine; PCP Family Medicine; Visit Provider Family Medicine
DX: H05.011 Cellulitis of right orbit (principal); H05.241 Constant exophthalmos, right eye; H10.33 Unspecified acute conjunctivitis, bilateral; E11.319 Type 2 diabetes mellitus with unspecified diabetic retinopathy without macular edema; Z79.4 Long term (current) use of insulin; D32.0 Benign neoplasm of cerebral meninges; D16.4 Benign neoplasm of bones of skull and face; M62.81 Muscle weakness (generalized); Z59.41 Food insecurity
CPT/HCPCS: 36415; 70450; 70487; 70553; 71045; 80053; 80306; 81001; 82077; 82550; 82803; 82962; 83605; 83735; 84443; 85025; 85651; 86140; 87040; 87070; 87636; 99284; 99285; A9270; A9575; J0295; J1650; J1815; J2543; J7030; Q9967